=== PATIENT | female | born 1940 | race Caucasian/White ===

== ENCOUNTER 2016-06-20 12:44 | Outpatient (CLI) | payer MEDICARE ==
[2016-06-20 13:07] LABS: Bilirubin Negative (Negative); Blood, Urine Negative (Negative); Glucose, Urine (Dipstick) Negative (Negative); Ketone, Urine Negative (Negative); Nitrite Negative (Negative); Protein, Urine (Dipstick) Negative (Neg-Trace); Urobilinogen 0.2 mg/dL (0.2-1.0)
[2016-06-20 13:29] LABS: Bacteria/HPF 1+ HPF (None Seen); RBC/HPF 0-3 HPF (0-3); Squamous Epithelial 0-3 HPF (0-3); WBC/HPF 21-50 HPF (0-3)
== END 2016-06-20 12:45 | disposition home or self-care (01) ==
LOC: NAV LAB 12:44
PROVIDERS: ATTEND Family Medicine
DX: N39.0 Urinary tract infection, site not specified (principal)
CPT/HCPCS: 81003; 81015; 87086

== ENCOUNTER 2016-08-15 08:57 | Outpatient (CLI) | payer MEDICARE ==
[2016-08-15 12:25] LABS: #Eosinphils 0.1 thou/uL (0.0-0.7); #Lymphocytes 2.1 thou/uL (1.20-3.40); #Monocytes 0.5 thou/uL (0.11-0.59); #Neutrophils 5.8 thou/uL (1.40-6.50); %Basophils 0.5 % (0.0-1.0); %Lymphocytes 24.6 % (21.0-51.0); %Monocytes 6.2 % (0.0-10.0); %Neutrophils 67.7 % (42.0-75.0); Hemoglobin 12.9 g/dL (12.0-16.0); Mean Corpuscular HGB CONC 32.1 g/dL (32.0-36.0); Mean Corpuscular Hemoglobin 28.3 pg (27.0-31.0); Mean Corpuscular Volume 88.3 fl (81.0-99.0); Mean Platelet Volume 8.6 fL (7.4-10.4); Platelet Count 202 thou/uL (130-400); Red Blood Cell (RBC) Count 4.57 mill/uL (4.20-5.40); White Blood Cell (WBC) Count 8.6 thou/uL (4.8-10.8)
[2016-08-15 12:47] LABS: ALT (SGPT) 12 U/L (0-55); AST (SGOT) 16 U/L (5-34); Albumin 4.2 g/dL (3.4-4.8); Alkaline Phosphatase 43 U/L (40-150); Anion Gap 16 mmol/L (10-20); BUN (Urea Nitrogen) 19 mg/dL (9.8-20.1); Bilirubin, Direct 0.2 mg/dL (0.1-0.3); Bilirubin, Total 0.3 mg/dL (0.2-1.2); Calc. Creatinine Clearance 0 mL/min (70-130); Calcium 9.6 mg/dL (7.8-10.44); Carbon Dioxide 24 mmol/L (23-31); Chloride 105 mmol/L (98-107); Cholesterol 172 mg/dL (< 200 Desired); Estimated GFR-MDRD 69; Glucose 107 mg/dL (83-110); HDL Cholesterol 57 mg/dL (>60 Neg Risk); LDL Cholesterol, Calculated 91 mg/dL; Potassium 4.3 mmol/L (3.5-5.1); Protein, Total 7.1 g/dL (5.8-8.1); Sodium 141 mmol/L (136-145); Triglycerides 120 mg/dL (Less than 150)
== END 2016-08-15 08:58 | disposition home or self-care (01) ==
LOC: NAVSJIPCSP 08:57
PROVIDERS: ATTEND Family Medicine
DX: E78.00 Pure hypercholesterolemia, unspecified (principal); E11.9 Type 2 diabetes mellitus without complications; I10 Essential (primary) hypertension
CPT/HCPCS: 36415; 80048; 80061; 80076; 83036; 84443; 85025

== ENCOUNTER 2016-08-17 14:06 | Outpatient (CLI) | payer MEDICARE ==
[2016-08-17 21:16] LABS: Bilirubin Negative (Negative); Blood, Urine Negative (Negative); Clarity Clear (Clear); Glucose, Urine (Dipstick) Negative (Negative); Leukocyte Small (Negative); Nitrite Negative (Negative); Protein, Urine (Dipstick) Negative (Neg-Trace); Urobilinogen 0.2 mg/dL (0.2-1.0)
[2016-08-17 21:58] LABS: Bacteria/HPF 1+ HPF (None Seen); Renal Epithelial 0-3 HPF (0-3); WBC/HPF 0-3 HPF (0-3)
== END 2016-08-17 14:07 | disposition home or self-care (01) ==
LOC: NAV LAB 14:06
PROVIDERS: ATTEND Nurse Practitioner Family
DX: R39.9 Unspecified symptoms and signs involving the genitourinary system (principal)
CPT/HCPCS: 81001; 87086

== ENCOUNTER 2016-12-22 09:27 | Outpatient (CLI) | payer MEDICARE ==
[2016-12-22 12:04] LABS: #Basophils 0.1 thou/uL (0.0-0.2); #Eosinphils 0.1 thou/uL (0.0-0.7); #Lymphocytes 1.8 thou/uL (1.20-3.40); #Monocytes 0.6 thou/uL (0.11-0.59); #Neutrophils 5.2 thou/uL (1.40-6.50); %Basophils 0.8 % (0.0-1.0); %Eosinophils 0.9 % (0.0-10.0); %Lymphocytes 23.6 % (21.0-51.0); %Monocytes 7.3 % (0.0-10.0); %Neutrophils 67.4 % (42.0-75.0); Hemoglobin 12.7 g/dL (12.0-16.0); Mean Corpuscular HGB CONC 31.5 g/dL (32.0-36.0); Mean Corpuscular Volume 88.9 fl (81.0-99.0); Mean Platelet Volume 8.7 fL (7.4-10.4); Platelet Count 190 thou/uL (130-400); RBC Distribution Width 13.8 % (11.5-14.5); Red Blood Cell (RBC) Count 4.54 mill/uL (4.20-5.40); White Blood Cell (WBC) Count 7.7 thou/uL (4.8-10.8)
[2016-12-22 12:19] LABS: ALT (SGPT) 11 U/L (8-55); AST (SGOT) 16 U/L (5-34); Alkaline Phosphatase 44 U/L (40-150); Anion Gap 17 mmol/L (10-20); BUN (Urea Nitrogen) 22 mg/dL (9.8-20.1); Bilirubin, Direct 0.2 mg/dL (0.1-0.3); Bilirubin, Total 0.3 mg/dL (0.2-1.2); Calc. Creatinine Clearance 0 mL/min (70-130); Calcium 9.4 mg/dL (7.8-10.44); Carbon Dioxide 23 mmol/L (23-31); Cardiac Risk 2.7 (Less than 4.5); Chloride 104 mmol/L (98-107); Cholesterol 147 mg/dl (< 200 Desired); Estimated GFR-MDRD 66; Glucose 106 mg/dL (83-110); HDL Cholesterol 55 mg/dL (>60 Neg Risk); LDL Cholesterol, Calculated 70 mg/dL; Potassium 4.4 mmol/L (3.5-5.1); Protein, Total 6.7 g/dL (6.0-8.3); Sodium 140 mmol/L (136-145); Triglycerides 109 mg/dL (Less than 150)
[2016-12-22 12:25] LABS: Bilirubin Negative (Negative); Blood, Urine Trace (Negative); Clarity Clear (Clear); Glucose, Urine (Dipstick) Negative (Negative); Leukocyte Negative (Negative); Nitrite Negative (Negative); Protein, Urine (Dipstick) Negative (Neg-Trace); Specific Gravity, Urine 1.015 (1.005-1.030); Urobilinogen 0.2 mg/dL (0.2-1.0); pH, Urine 5.5 (5.0-9.0)
[2016-12-22 12:42] LABS: Hemoglobin A1c 6.3 % (4.0-6.0)
[2016-12-22 12:43] LABS: Bacteria/HPF Rare-Few HPF (None Seen); RBC/HPF 0-3 HPF (0-3); WBC/HPF 0-3 HPF (0-3)
== END 2016-12-22 09:28 | disposition home or self-care (01) ==
LOC: NAVSJIPCSP 09:27
PROVIDERS: ATTEND Family Medicine
DX: E11.9 Type 2 diabetes mellitus without complications (principal); E78.5 Hyperlipidemia, unspecified; I10 Essential (primary) hypertension; R30.0 Dysuria; Z79.899 Other long term (current) drug therapy
CPT/HCPCS: 36415; 80048; 80061; 80076; 81003; 81015; 83036; 84443; 85025

== ENCOUNTER 2018-01-10 12:22 | Outpatient (CLI) | payer MEDICARE ==
[2018-01-10 13:05] LABS: Bilirubin Negative (Negative); Blood, Urine Trace (Negative); Clarity Clear (Clear); Glucose, Urine (Dipstick) Negative (Negative); Leukocyte Large (Negative); Nitrite Negative (Negative); Protein, Urine (Dipstick) Negative (Neg-Trace); Urobilinogen 0.2 mg/dL (0.2-1.0); pH, Urine 6.5 (5.0-9.0)
[2018-01-10 13:20] LABS: Bacteria/HPF Rare-Few HPF (None Seen); RBC/HPF 0-3 HPF (0-3); Squamous Epithelial 0-3 HPF (0-3)
== END 2018-01-10 12:23 | disposition home or self-care (01) ==
LOC: NAV LABSP 12:22
PROVIDERS: ATTEND Family Medicine
DX: N39.0 Urinary tract infection, site not specified (principal)
CPT/HCPCS: 81003; 81015; 87077; 87086; 87186

== ENCOUNTER 2020-12-01 12:35 | Inpatient (IN) | payer MEDICARE ==
[2020-12-01] MEDS: metFORMIN 500 MG TAB PO SCH (17:11)
[2020-12-01] MEDS: HYDROcodone/Acetaminophen 5/325 mg Tablet PO PRN (17:11)
[2020-12-01] MEDS: Calcium Carbonate 600 MG + Vit D TAB PO SCH (17:11)
[2020-12-01] MEDS: Atorvastatin Calcium 20 MG TAB PO SCH (20:35)
[2020-12-01] MEDS: Senokot S 8.6-50 MG TAB PO SCH (20:35)
[2020-12-01] MEDS ORDERED: Artificial Tear Sol 15 ML BOT EA EYE PRN (20:40)
[2020-12-01] MEDS ORDERED: Dextrose 50% Abboject 50 ML SYRINGE SLOW IVP PRN (20:40)
[2020-12-01] MEDS ORDERED: cloNIDine 0.1 MG TAB PO PRN (20:40)
[2020-12-01] MEDS ORDERED: Sodium Chloride 0.65% Nasal 44 ML BOT EA NARE PRN (20:40)
[2020-12-01] MEDS ORDERED: Cepastat Lozenges 1 LOZ PO PRN (20:40)
[2020-12-01] MEDS ORDERED: Benzonatate 100 MG CAP PO PRN (20:40)
[2020-12-01] MEDS ORDERED: Calcium Carbonate 500 MG ChewTAB PO PRN (20:40)
[2020-12-01] MEDS ORDERED: Loperamide HCl 2 MG CAP PO PRN ×2 (20:40)
[2020-12-01] MEDS ORDERED: Loratadine 10 MG TAB PO PRN (20:40)
[2020-12-01] MEDS: Famotidine 20 MG TAB PO SCH (21:38)
[2020-12-02 04:08] LABS: SARS-CoV-2 NAA Rapid Test Not Detected (NotDetected)
[2020-12-02] MEDS: Levothyroxine Sodium 25 MCG TAB PO SCH (05:20)
[2020-12-02 06:51] LABS: #Basophils 0.1 thou/uL (0.0-0.2); #Eosinphils 0.1 thou/uL (0.0-0.7); #Lymphocytes 1.5 thou/uL (1.20-3.40); #Monocytes 0.7 thou/uL (0.11-0.59); #Neutrophils 7.2 thou/uL (1.40-6.50); %Eosinophils 1.5 % (0.0-10.0); %Lymphocytes 15.9 % (21.0-51.0); %Monocytes 6.9 % (0.0-10.0); %Neutrophils 74.7 % (42.0-75.0); Mean Corpuscular HGB CONC 31.4 g/dL (32.0-36.0); Mean Corpuscular Hemoglobin 28.1 pg (27.0-31.0); Mean Corpuscular Volume 89.7 fL (78.0-98.0); Mean Platelet Volume 5.9 fL (7.4-10.4); Platelet Count 345 thou/uL (130-400); RBC Distribution Width 15.2 % (11.5-14.5); Red Blood Cell (RBC) Count 3.18 mill/uL (4.20-5.40); White Blood Cell (WBC) Count 9.6 thou/uL (4.8-10.8)
[2020-12-02 07:08] LABS: ALT (SGPT) 21 U/L (8-55); AST (SGOT) 24 U/L (5-34); Albumin 3.1 g/dL (3.4-4.8); Alkaline Phosphatase 73 U/L (40-110); Anion Gap 13 mmol/L (10-20); BUN (Urea Nitrogen) 29 mg/dL (9.8-20.1); Bilirubin, Total 0.6 mg/dL (0.2-1.2); Calc. Creatinine Clearance 66 mL/min (70-130); Calcium 9.3 mg/dL (7.8-10.44); Carbon Dioxide 26 mmol/L (23-31); Chloride 102 mmol/L (98-107); Globulin 3.1 g/dL (2.4-3.5); Glucose 152 mg/dL (83-110); Potassium 4.7 mmol/L (3.5-5.1); Protein, Total 6.2 g/dL (5.8-8.1); Sodium 136 mmol/L (136-145)
[2020-12-02] MEDS: Calcium Carbonate 600 MG + Vit D TAB PO SCH ×2 (08:40→16:58)
[2020-12-02] MEDS: Enoxaparin Sodium 40 MG/0.4 ML SYRINGE SC SCH (08:41)
[2020-12-02] MEDS: Aspirin Chewable 81 MG TAB PO SCH (08:41)
[2020-12-02] MEDS: metFORMIN 500 MG TAB PO SCH ×2 (08:41→16:58)
[2020-12-02] MEDS: Ferrous Sulfate 325 MG TAB PO SCH (08:41)
[2020-12-02] MEDS: Famotidine 20 MG TAB PO SCH ×2 (08:42→20:31)
[2020-12-02] MEDS: Lisinopril 20 MG TAB PO SCH (08:42)
[2020-12-02] MEDS: NIFEdipine XL 30 MG TAB PO SCH (08:44)
[2020-12-02] MEDS: Pioglitazone HCl 15 MG TAB PO SCH (08:45)
[2020-12-02] MEDS: HYDROcodone/Acetaminophen 5/325 mg Tablet PO PRN ×2 (08:46→17:00)
[2020-12-02] MEDS: Senokot S 8.6-50 MG TAB PO SCH ×2 (08:46→20:31)
[2020-12-02] MEDS: Polyethylene Glycol 3350 17 GM Packet PO SCH (08:46)
[2020-12-02] MEDS: HumaLOG 300 UNITS/3 ML VIAL SC PRN (12:26)
[2020-12-02] MEDS: Atorvastatin Calcium 20 MG TAB PO SCH (20:31)
[2020-12-03] MEDS: Levothyroxine Sodium 25 MCG TAB PO SCH (05:16)
[2020-12-03] MEDS: Enoxaparin Sodium 40 MG/0.4 ML SYRINGE SC SCH (08:43)
[2020-12-03] MEDS: Polyethylene Glycol 3350 17 GM Packet PO SCH (08:43)
[2020-12-03] MEDS: Ferrous Sulfate 325 MG TAB PO SCH (08:44)
[2020-12-03] MEDS: NIFEdipine XL 30 MG TAB PO SCH (08:44)
[2020-12-03] MEDS: Famotidine 20 MG TAB PO SCH ×2 (08:46→21:17)
[2020-12-03] MEDS: Pioglitazone HCl 15 MG TAB PO SCH (08:47)
[2020-12-03] MEDS: Lisinopril 20 MG TAB PO SCH (08:47)
[2020-12-03] MEDS: Aspirin Chewable 81 MG TAB PO SCH (08:48)
[2020-12-03] MEDS: metFORMIN 500 MG TAB PO SCH ×2 (08:48→16:41)
[2020-12-03] MEDS: Senokot S 8.6-50 MG TAB PO SCH ×2 (08:49→21:17)
[2020-12-03] MEDS: HYDROcodone/Acetaminophen 5/325 mg Tablet PO PRN ×2 (08:55→16:55)
[2020-12-03] MEDS: Calcium Carbonate 600 MG + Vit D TAB PO SCH ×2 (08:56→16:42)
[2020-12-03] MEDS ORDERED: Bisacodyl 10 MG SUPP PR PRN (16:23)
[2020-12-03] MEDS: Ondansetron ODT 4 MG TAB PO PRN (20:30)
[2020-12-03] MEDS: Atorvastatin Calcium 20 MG TAB PO SCH (21:17)
[2020-12-04] MEDS: Levothyroxine Sodium 25 MCG TAB PO SCH (05:53)
[2020-12-04 06:35] LABS: #Basophils 0.1 thou/uL (0.0-0.2); #Eosinphils 0.1 thou/uL (0.0-0.7); #Lymphocytes 1.3 thou/uL (1.20-3.40); #Monocytes 0.8 thou/uL (0.11-0.59); #Neutrophils 7.5 thou/uL (1.40-6.50); %Basophils 0.6 % (0.0-1.0); %Eosinophils 1.2 % (0.0-10.0); %Lymphocytes 13.3 % (21.0-51.0); %Monocytes 8.2 % (0.0-10.0); %Neutrophils 76.8 % (42.0-75.0); Mean Corpuscular HGB CONC 31.6 g/dL (32.0-36.0); Mean Corpuscular Hemoglobin 28.3 pg (27.0-31.0); Mean Corpuscular Volume 89.6 fL (78.0-98.0); Mean Platelet Volume 5.7 fL (7.4-10.4); Platelet Count 407 thou/uL (130-400); RBC Distribution Width 15.5 % (11.5-14.5); Red Blood Cell (RBC) Count 3.17 mill/uL (4.20-5.40); White Blood Cell (WBC) Count 9.7 thou/uL (4.8-10.8)
[2020-12-04 06:48] LABS: Anion Gap 12 mmol/L (10-20); BUN (Urea Nitrogen) 34 mg/dL (9.8-20.1); Calc. Creatinine Clearance 53 mL/min (70-130); Carbon Dioxide 25 mmol/L (23-31); Chloride 103 mmol/L (98-107); Glucose 128 mg/dL (83-110); Potassium 4.6 mmol/L (3.5-5.1); Sodium 135 mmol/L (136-145)
[2020-12-04] MEDS: HYDROcodone/Acetaminophen 5/325 mg Tablet PO PRN ×2 (08:11→14:10)
[2020-12-04] MEDS: metFORMIN 500 MG TAB PO SCH ×2 (08:11→17:30)
[2020-12-04] MEDS: Ferrous Sulfate 325 MG TAB PO SCH (08:11)
[2020-12-04] MEDS: Polyethylene Glycol 3350 17 GM Packet PO SCH (08:13)
[2020-12-04] MEDS: Pioglitazone HCl 15 MG TAB PO SCH (08:13)
[2020-12-04] MEDS: Lisinopril 20 MG TAB PO SCH (08:13)
[2020-12-04] MEDS: NIFEdipine XL 30 MG TAB PO SCH (08:14)
[2020-12-04] MEDS: Calcium Carbonate 600 MG + Vit D TAB PO SCH ×2 (08:15→17:30)
[2020-12-04] MEDS: Aspirin Chewable 81 MG TAB PO SCH (08:15)
[2020-12-04] MEDS: Senokot S 8.6-50 MG TAB PO SCH ×2 (08:15→20:44)
[2020-12-04] MEDS: Enoxaparin Sodium 40 MG/0.4 ML SYRINGE SC SCH (08:15)
[2020-12-04] MEDS: Famotidine 20 MG TAB PO SCH ×2 (08:16→20:44)
[2020-12-04] MEDS: HumaLOG 300 UNITS/3 ML VIAL SC PRN (12:15)
[2020-12-04] MEDS: Ondansetron ODT 4 MG TAB PO PRN (20:44)
[2020-12-04] MEDS: Atorvastatin Calcium 20 MG TAB PO SCH (20:44)
[2020-12-05] MEDS: Levothyroxine Sodium 25 MCG TAB PO SCH (05:24)
[2020-12-05] MEDS: Calcium Carbonate 600 MG + Vit D TAB PO SCH ×2 (09:25→15:57)
[2020-12-05] MEDS: Enoxaparin Sodium 40 MG/0.4 ML SYRINGE SC SCH (09:26)
[2020-12-05] MEDS: Aspirin Chewable 81 MG TAB PO SCH (09:26)
[2020-12-05] MEDS: Ferrous Sulfate 325 MG TAB PO SCH (09:26)
[2020-12-05] MEDS: metFORMIN 500 MG TAB PO SCH ×2 (09:26→15:57)
[2020-12-05] MEDS: Pioglitazone HCl 15 MG TAB PO SCH (09:27)
[2020-12-05] MEDS: Lisinopril 20 MG TAB PO SCH (09:27)
[2020-12-05] MEDS: Famotidine 20 MG TAB PO SCH ×2 (09:27→20:44)
[2020-12-05] MEDS: Polyethylene Glycol 3350 17 GM Packet PO SCH (09:27)
[2020-12-05] MEDS: Senokot S 8.6-50 MG TAB PO SCH ×2 (09:28→20:44)
[2020-12-05] MEDS: NIFEdipine XL 30 MG TAB PO SCH (09:28)
[2020-12-05] MEDS: HYDROcodone/Acetaminophen 5/325 mg Tablet PO PRN ×2 (09:30→15:57)
[2020-12-05] MEDS: Atorvastatin Calcium 20 MG TAB PO SCH (20:44)
[2020-12-06] MEDS: Levothyroxine Sodium 25 MCG TAB PO SCH (05:22)
[2020-12-06] MEDS: Calcium Carbonate 600 MG + Vit D TAB PO SCH ×2 (09:20→17:26)
[2020-12-06] MEDS: Polyethylene Glycol 3350 17 GM Packet PO SCH (09:21)
[2020-12-06] MEDS: metFORMIN 500 MG TAB PO SCH ×2 (09:21→17:26)
[2020-12-06] MEDS: Ferrous Sulfate 325 MG TAB PO SCH (09:21)
[2020-12-06] MEDS: Famotidine 20 MG TAB PO SCH ×2 (09:22→20:09)
[2020-12-06] MEDS: Lisinopril 20 MG TAB PO SCH (09:22)
[2020-12-06] MEDS: Enoxaparin Sodium 40 MG/0.4 ML SYRINGE SC SCH (09:22)
[2020-12-06] MEDS: Aspirin Chewable 81 MG TAB PO SCH (09:22)
[2020-12-06] MEDS: NIFEdipine XL 30 MG TAB PO SCH (09:23)
[2020-12-06] MEDS: Pioglitazone HCl 15 MG TAB PO SCH (09:23)
[2020-12-06] MEDS: Senokot S 8.6-50 MG TAB PO SCH ×2 (09:23→20:09)
[2020-12-06] MEDS: HYDROcodone/Acetaminophen 5/325 mg Tablet PO PRN ×2 (09:26→19:21)
[2020-12-06] MEDS: Atorvastatin Calcium 20 MG TAB PO SCH (20:09)
[2020-12-07] MEDS: Levothyroxine Sodium 25 MCG TAB PO SCH (06:18)
[2020-12-07] MEDS: Pioglitazone HCl 15 MG TAB PO SCH (08:50)
[2020-12-07] MEDS: metFORMIN 500 MG TAB PO SCH ×2 (08:50→16:42)
[2020-12-07] MEDS: Ferrous Sulfate 325 MG TAB PO SCH (08:50)
[2020-12-07] MEDS: Senokot S 8.6-50 MG TAB PO SCH ×2 (08:51→20:17)
[2020-12-07] MEDS: Famotidine 20 MG TAB PO SCH ×2 (08:51→20:17)
[2020-12-07] MEDS: Calcium Carbonate 600 MG + Vit D TAB PO SCH ×2 (08:51→16:42)
[2020-12-07] MEDS: Enoxaparin Sodium 40 MG/0.4 ML SYRINGE SC SCH (08:51)
[2020-12-07] MEDS: Aspirin Chewable 81 MG TAB PO SCH (08:51)
[2020-12-07] MEDS: NIFEdipine XL 30 MG TAB PO SCH (08:51)
[2020-12-07] MEDS: Lisinopril 20 MG TAB PO SCH (08:51)
[2020-12-07] MEDS: Polyethylene Glycol 3350 17 GM Packet PO SCH (08:52)
[2020-12-07] MEDS: HYDROcodone/Acetaminophen 5/325 mg Tablet PO PRN (08:57)
[2020-12-07] MEDS: Atorvastatin Calcium 20 MG TAB PO SCH (20:17)
[2020-12-08] MEDS: HYDROcodone/Acetaminophen 5/325 mg Tablet PO PRN ×3 (00:38→17:09)
[2020-12-08] MEDS: Levothyroxine Sodium 25 MCG TAB PO SCH (06:09)
[2020-12-08] MEDS: Senokot S 8.6-50 MG TAB PO SCH ×2 (08:54→21:02)
[2020-12-08] MEDS: metFORMIN 500 MG TAB PO SCH ×2 (08:55→17:08)
[2020-12-08] MEDS: Famotidine 20 MG TAB PO SCH ×2 (08:55→21:02)
[2020-12-08] MEDS: Aspirin Chewable 81 MG TAB PO SCH (08:55)
[2020-12-08] MEDS: NIFEdipine XL 30 MG TAB PO SCH (08:55)
[2020-12-08] MEDS: Polyethylene Glycol 3350 17 GM Packet PO SCH (08:55)
[2020-12-08] MEDS: Pioglitazone HCl 15 MG TAB PO SCH (08:55)
[2020-12-08] MEDS: Calcium Carbonate 600 MG + Vit D TAB PO SCH ×2 (08:55→17:08)
[2020-12-08] MEDS: Enoxaparin Sodium 40 MG/0.4 ML SYRINGE SC SCH (08:55)
[2020-12-08] MEDS: Lisinopril 20 MG TAB PO SCH (08:55)
[2020-12-08] MEDS: Ferrous Sulfate 325 MG TAB PO SCH (08:55)
[2020-12-08] MEDS: Atorvastatin Calcium 20 MG TAB PO SCH (21:02)
[2020-12-08 21:16] LABS: SARS-CoV-2 PCR by NAA Not Detected (NotDetected)
[2020-12-09] MEDS: Levothyroxine Sodium 25 MCG TAB PO SCH (06:14)
[2020-12-09] MEDS: Calcium Carbonate 600 MG + Vit D TAB PO SCH ×2 (08:26→17:11)
[2020-12-09] MEDS: Aspirin Chewable 81 MG TAB PO SCH (08:27)
[2020-12-09] MEDS: Famotidine 20 MG TAB PO SCH ×2 (08:27→21:43)
[2020-12-09] MEDS: Enoxaparin Sodium 40 MG/0.4 ML SYRINGE SC SCH (08:27)
[2020-12-09] MEDS: Ferrous Sulfate 325 MG TAB PO SCH (08:27)
[2020-12-09] MEDS: metFORMIN 500 MG TAB PO SCH ×2 (08:27→17:11)
[2020-12-09] MEDS: Lisinopril 20 MG TAB PO SCH (08:28)
[2020-12-09] MEDS: NIFEdipine XL 30 MG TAB PO SCH (08:30)
[2020-12-09] MEDS: Polyethylene Glycol 3350 17 GM Packet PO SCH (08:31)
[2020-12-09] MEDS: Senokot S 8.6-50 MG TAB PO SCH ×2 (08:31→21:42)
[2020-12-09] MEDS: Pioglitazone HCl 15 MG TAB PO SCH (08:31)
[2020-12-09] MEDS: HYDROcodone/Acetaminophen 5/325 mg Tablet PO PRN ×3 (08:32→21:43)
[2020-12-09] MEDS: Ondansetron ODT 4 MG TAB SL PRN (20:32)
[2020-12-09] MEDS: Atorvastatin Calcium 20 MG TAB PO SCH (21:42)
[2020-12-10] MEDS: Levothyroxine Sodium 25 MCG TAB PO SCH (05:56)
[2020-12-10] MEDS: Ferrous Sulfate 325 MG TAB PO SCH (08:04)
[2020-12-10] MEDS: Calcium Carbonate 600 MG + Vit D TAB PO SCH ×2 (08:04→16:20)
[2020-12-10] MEDS: Aspirin Chewable 81 MG TAB PO SCH (08:05)
[2020-12-10] MEDS: metFORMIN 500 MG TAB PO SCH ×2 (08:05→16:20)
[2020-12-10] MEDS: Enoxaparin Sodium 40 MG/0.4 ML SYRINGE SC SCH (08:06)
[2020-12-10] MEDS: Famotidine 20 MG TAB PO SCH ×2 (08:07→20:06)
[2020-12-10] MEDS: NIFEdipine XL 30 MG TAB PO SCH (08:07)
[2020-12-10] MEDS: Lisinopril 20 MG TAB PO SCH (08:07)
[2020-12-10] MEDS: Polyethylene Glycol 3350 17 GM Packet PO SCH (08:08)
[2020-12-10] MEDS: Pioglitazone HCl 15 MG TAB PO SCH (08:08)
[2020-12-10] MEDS: HYDROcodone/Acetaminophen 5/325 mg Tablet PO PRN ×2 (08:08→14:50)
[2020-12-10] MEDS: Senokot S 8.6-50 MG TAB PO SCH ×2 (08:08→20:06)
[2020-12-10] MEDS: Atorvastatin Calcium 20 MG TAB PO SCH (20:06)
[2020-12-11] MEDS: Levothyroxine Sodium 25 MCG TAB PO SCH (05:39)
[2020-12-11] MEDS: HYDROcodone/Acetaminophen 5/325 mg Tablet PO PRN ×2 (08:36→18:01)
[2020-12-11] MEDS: Enoxaparin Sodium 40 MG/0.4 ML SYRINGE SC SCH (08:38)
[2020-12-11] MEDS: Senokot S 8.6-50 MG TAB PO SCH ×2 (08:39→20:58)
[2020-12-11] MEDS: Pioglitazone HCl 15 MG TAB PO SCH (08:39)
[2020-12-11] MEDS: NIFEdipine XL 30 MG TAB PO SCH (08:40)
[2020-12-11] MEDS: Lisinopril 20 MG TAB PO SCH (08:40)
[2020-12-11] MEDS: Aspirin Chewable 81 MG TAB PO SCH (08:40)
[2020-12-11] MEDS: Ferrous Sulfate 325 MG TAB PO SCH (08:41)
[2020-12-11] MEDS: Famotidine 20 MG TAB PO SCH ×2 (08:41→20:57)
[2020-12-11] MEDS: metFORMIN 500 MG TAB PO SCH ×2 (08:41→17:58)
[2020-12-11] MEDS: Calcium Carbonate 600 MG + Vit D TAB PO SCH ×2 (08:50→17:58)
[2020-12-11] MEDS: Polyethylene Glycol 3350 17 GM Packet PO SCH (08:51)
[2020-12-11] MEDS: Atorvastatin Calcium 20 MG TAB PO SCH (20:58)
[2020-12-12] MEDS: Levothyroxine Sodium 25 MCG TAB PO SCH (05:51)
[2020-12-12] MEDS: HYDROcodone/Acetaminophen 5/325 mg Tablet PO PRN ×2 (08:49→21:58)
[2020-12-12] MEDS: Famotidine 20 MG TAB PO SCH ×2 (08:51→20:15)
[2020-12-12] MEDS: Calcium Carbonate 600 MG + Vit D TAB PO SCH ×2 (08:51→17:31)
[2020-12-12] MEDS: Ferrous Sulfate 325 MG TAB PO SCH (08:51)
[2020-12-12] MEDS: NIFEdipine XL 30 MG TAB PO SCH (08:52)
[2020-12-12] MEDS: Senokot S 8.6-50 MG TAB PO SCH ×2 (08:52→20:15)
[2020-12-12] MEDS: metFORMIN 500 MG TAB PO SCH ×2 (08:52→17:32)
[2020-12-12] MEDS: Lisinopril 20 MG TAB PO SCH (08:53)
[2020-12-12] MEDS: Aspirin Chewable 81 MG TAB PO SCH (08:53)
[2020-12-12] MEDS: Polyethylene Glycol 3350 17 GM Packet PO SCH (08:54)
[2020-12-12] MEDS: Enoxaparin Sodium 40 MG/0.4 ML SYRINGE SC SCH (08:59)
[2020-12-12] MEDS: Pioglitazone HCl 15 MG TAB PO SCH (08:59)
[2020-12-12] MEDS: Eucerin (Mineral Oil/Petrolatum,White) 30 gm Jar TOP PRN (09:01)
[2020-12-12] MEDS: Ondansetron ODT 4 MG TAB SL PRN (13:20)
[2020-12-12] MEDS: Atorvastatin Calcium 20 MG TAB PO SCH (20:15)
[2020-12-13] MEDS: Levothyroxine Sodium 25 MCG TAB PO SCH (05:50)
[2020-12-13] MEDS: HYDROcodone/Acetaminophen 5/325 mg Tablet PO PRN ×3 (08:27→20:25)
[2020-12-13] MEDS: Ferrous Sulfate 325 MG TAB PO SCH (08:30)
[2020-12-13] MEDS: Famotidine 20 MG TAB PO SCH ×2 (08:30→20:26)
[2020-12-13] MEDS: Enoxaparin Sodium 40 MG/0.4 ML SYRINGE SC SCH (08:30)
[2020-12-13] MEDS: NIFEdipine XL 30 MG TAB PO SCH (08:31)
[2020-12-13] MEDS: metFORMIN 500 MG TAB PO SCH ×2 (08:31→17:35)
[2020-12-13] MEDS: Pioglitazone HCl 15 MG TAB PO SCH (08:31)
[2020-12-13] MEDS: Aspirin Chewable 81 MG TAB PO SCH (08:32)
[2020-12-13] MEDS: Calcium Carbonate 600 MG + Vit D TAB PO SCH ×2 (08:32→17:35)
[2020-12-13] MEDS: Lisinopril 20 MG TAB PO SCH (08:32)
[2020-12-13] MEDS: Eucerin (Mineral Oil/Petrolatum,White) 30 gm Jar TOP PRN (08:33)
[2020-12-13] MEDS: Senokot S 8.6-50 MG TAB PO SCH ×2 (08:34→20:26)
[2020-12-13] MEDS: Polyethylene Glycol 3350 17 GM Packet PO SCH (08:35)
[2020-12-13] MEDS: Ondansetron ODT 4 MG TAB SL PRN (14:10)
[2020-12-13] MEDS: Atorvastatin Calcium 20 MG TAB PO SCH (20:26)
[2020-12-14] MEDS: Levothyroxine Sodium 25 MCG TAB PO SCH (05:30)
[2020-12-14] MEDS: Calcium Carbonate 600 MG + Vit D TAB PO SCH ×2 (08:12→17:04)
[2020-12-14] MEDS: Enoxaparin Sodium 40 MG/0.4 ML SYRINGE SC SCH (08:13)
[2020-12-14] MEDS: metFORMIN 500 MG TAB PO SCH ×2 (08:13→17:04)
[2020-12-14] MEDS: Ferrous Sulfate 325 MG TAB PO SCH (08:13)
[2020-12-14] MEDS: Famotidine 20 MG TAB PO SCH ×2 (08:13→20:23)
[2020-12-14] MEDS: Aspirin Chewable 81 MG TAB PO SCH (08:13)
[2020-12-14] MEDS: NIFEdipine XL 30 MG TAB PO SCH (08:14)
[2020-12-14] MEDS: Lisinopril 20 MG TAB PO SCH (08:14)
[2020-12-14] MEDS: Polyethylene Glycol 3350 17 GM Packet PO SCH (08:15)
[2020-12-14] MEDS: HYDROcodone/Acetaminophen 5/325 mg Tablet PO PRN ×2 (08:15→20:22)
[2020-12-14] MEDS: Pioglitazone HCl 15 MG TAB PO SCH (08:15)
[2020-12-14] MEDS: Senokot S 8.6-50 MG TAB PO SCH ×2 (08:15→20:23)
[2020-12-14] MEDS: Ondansetron ODT 4 MG TAB SL PRN ×2 (08:21→15:41)
[2020-12-14] MEDS: Atorvastatin Calcium 20 MG TAB PO SCH (20:23)
[2020-12-15] MEDS: Levothyroxine Sodium 25 MCG TAB PO SCH (05:49)
[2020-12-15] MEDS: Calcium Carbonate 600 MG + Vit D TAB PO SCH ×2 (08:14→16:28)
[2020-12-15] MEDS: Ferrous Sulfate 325 MG TAB PO SCH (08:14)
[2020-12-15] MEDS: Aspirin Chewable 81 MG TAB PO SCH (08:14)
[2020-12-15] MEDS: metFORMIN 500 MG TAB PO SCH ×2 (08:14→16:28)
[2020-12-15] MEDS: Enoxaparin Sodium 40 MG/0.4 ML SYRINGE SC SCH (08:14)
[2020-12-15] MEDS: Lisinopril 20 MG TAB PO SCH (08:15)
[2020-12-15] MEDS: Famotidine 20 MG TAB PO SCH ×2 (08:15→20:32)
[2020-12-15] MEDS: NIFEdipine XL 30 MG TAB PO SCH (08:16)
[2020-12-15] MEDS: Senokot S 8.6-50 MG TAB PO SCH ×2 (08:17→20:32)
[2020-12-15] MEDS: Polyethylene Glycol 3350 17 GM Packet PO SCH (08:17)
[2020-12-15] MEDS: HYDROcodone/Acetaminophen 5/325 mg Tablet PO PRN ×2 (08:17→16:28)
[2020-12-15] MEDS: Pioglitazone HCl 15 MG TAB PO SCH (08:17)
[2020-12-15] MEDS: Atorvastatin Calcium 20 MG TAB PO SCH (20:32)
[2020-12-15 21:50] LABS: SARS-CoV-2 PCR by NAA Not Detected (NotDetected)
[2020-12-16] MEDS: HYDROcodone/Acetaminophen 5/325 mg Tablet PO PRN ×3 (03:28→18:46)
[2020-12-16] MEDS: Levothyroxine Sodium 25 MCG TAB PO SCH (06:23)
[2020-12-16] MEDS: Polyethylene Glycol 3350 17 GM Packet PO SCH (08:09)
[2020-12-16] MEDS: Enoxaparin Sodium 40 MG/0.4 ML SYRINGE SC SCH (08:09)
[2020-12-16] MEDS: Lisinopril 20 MG TAB PO SCH (08:09)
[2020-12-16] MEDS: Aspirin Chewable 81 MG TAB PO SCH (08:10)
[2020-12-16] MEDS: Famotidine 20 MG TAB PO SCH ×2 (08:10→20:12)
[2020-12-16] MEDS: Senokot S 8.6-50 MG TAB PO SCH ×2 (08:10→20:12)
[2020-12-16] MEDS: Calcium Carbonate 600 MG + Vit D TAB PO SCH ×2 (08:10→17:27)
[2020-12-16] MEDS: NIFEdipine XL 30 MG TAB PO SCH (08:10)
[2020-12-16] MEDS: Pioglitazone HCl 15 MG TAB PO SCH (08:11)
[2020-12-16] MEDS: metFORMIN 500 MG TAB PO SCH ×2 (08:11→17:27)
[2020-12-16] MEDS: Ferrous Sulfate 325 MG TAB PO SCH (08:11)
[2020-12-16] MEDS: Ondansetron ODT 4 MG TAB SL PRN (08:48)
[2020-12-16] MEDS: Atorvastatin Calcium 20 MG TAB PO SCH (20:12)
[2020-12-17] MEDS: Levothyroxine Sodium 25 MCG TAB PO SCH (05:33)
[2020-12-17] MEDS: HYDROcodone/Acetaminophen 5/325 mg Tablet PO PRN ×2 (07:41→14:00)
[2020-12-17] MEDS: Enoxaparin Sodium 40 MG/0.4 ML SYRINGE SC SCH (07:42)
[2020-12-17] MEDS: Polyethylene Glycol 3350 17 GM Packet PO SCH (07:43)
[2020-12-17] MEDS: Calcium Carbonate 600 MG + Vit D TAB PO SCH ×2 (07:44→17:35)
[2020-12-17] MEDS: NIFEdipine XL 30 MG TAB PO SCH (07:44)
[2020-12-17] MEDS: Famotidine 20 MG TAB PO SCH ×2 (07:44→20:37)
[2020-12-17] MEDS: Pioglitazone HCl 15 MG TAB PO SCH (07:44)
[2020-12-17] MEDS: Aspirin Chewable 81 MG TAB PO SCH (07:45)
[2020-12-17] MEDS: Senokot S 8.6-50 MG TAB PO SCH ×2 (07:45→20:37)
[2020-12-17] MEDS: Ferrous Sulfate 325 MG TAB PO SCH (07:45)
[2020-12-17] MEDS: Lisinopril 20 MG TAB PO SCH (07:45)
[2020-12-17] MEDS: metFORMIN 500 MG TAB PO SCH ×2 (09:35→17:35)
[2020-12-17] MEDS: Atorvastatin Calcium 20 MG TAB PO SCH (20:37)
[2020-12-18 05:11] LABS: Bilirubin Negative (Negative); Blood, Urine Negative (Negative); Clarity Clear (Clear); Glucose, Urine (Dipstick) Negative (Negative); Ketone, Urine Negative (Negative); Leukocyte Negative (Negative); Nitrite Positive (Negative); Protein, Urine (Dipstick) Negative (Neg-Trace); Specific Gravity, Urine 1.015 (1.005-1.030); Urobilinogen 0.2 mg/dL (Less than 2)
[2020-12-18] MEDS: Levothyroxine Sodium 25 MCG TAB PO SCH (05:16)
[2020-12-18 05:20] LABS: Bacteria/HPF 2+ HPF (None Seen); RBC/HPF None Seen HPF (0-3); WBC/HPF None Seen HPF (0-3)
[2020-12-18] MEDS: HYDROcodone/Acetaminophen 5/325 mg Tablet PO PRN ×3 (08:36→23:33)
[2020-12-18] MEDS: Calcium Carbonate 600 MG + Vit D TAB PO SCH ×2 (08:37→17:11)
[2020-12-18] MEDS: Polyethylene Glycol 3350 17 GM Packet PO SCH (08:37)
[2020-12-18] MEDS: Pioglitazone HCl 15 MG TAB PO SCH (08:37)
[2020-12-18] MEDS: Senokot S 8.6-50 MG TAB PO SCH ×2 (08:37→21:07)
[2020-12-18] MEDS: Enoxaparin Sodium 40 MG/0.4 ML SYRINGE SC SCH (08:37)
[2020-12-18] MEDS: NIFEdipine XL 30 MG TAB PO SCH (08:38)
[2020-12-18] MEDS: Aspirin Chewable 81 MG TAB PO SCH (08:38)
[2020-12-18] MEDS: Ferrous Sulfate 325 MG TAB PO SCH (08:39)
[2020-12-18] MEDS: Famotidine 20 MG TAB PO SCH ×2 (08:39→21:05)
[2020-12-18] MEDS: metFORMIN 500 MG TAB PO SCH ×2 (08:48→17:11)
[2020-12-18] MEDS: Lisinopril 20 MG TAB PO SCH (08:49)
[2020-12-18] MEDS ORDERED: Cipro 250 MG TAB PO SCH (13:00)
[2020-12-18] MEDS: Atorvastatin Calcium 20 MG TAB PO SCH (21:05)
[2020-12-18] MEDS: Cipro 250 MG TAB PO SCH (21:05)
[2020-12-19] MEDS: Cipro 250 MG TAB PO SCH ×2 (05:55→20:30)
[2020-12-19] MEDS: Levothyroxine Sodium 25 MCG TAB PO SCH (05:55)
[2020-12-19] MEDS: Calcium Carbonate 600 MG + Vit D TAB PO SCH ×2 (08:11→16:47)
[2020-12-19] MEDS: metFORMIN 500 MG TAB PO SCH ×2 (08:12→16:48)
[2020-12-19] MEDS: Enoxaparin Sodium 40 MG/0.4 ML SYRINGE SC SCH (08:12)
[2020-12-19] MEDS: Ferrous Sulfate 325 MG TAB PO SCH (08:12)
[2020-12-19] MEDS: Aspirin Chewable 81 MG TAB PO SCH (08:12)
[2020-12-19] MEDS: NIFEdipine XL 30 MG TAB PO SCH (08:13)
[2020-12-19] MEDS: Famotidine 20 MG TAB PO SCH ×2 (08:13→20:30)
[2020-12-19] MEDS: Lisinopril 20 MG TAB PO SCH (08:13)
[2020-12-19] MEDS: Pioglitazone HCl 15 MG TAB PO SCH (08:14)
[2020-12-19] MEDS: Polyethylene Glycol 3350 17 GM Packet PO SCH (08:14)
[2020-12-19] MEDS: Senokot S 8.6-50 MG TAB PO SCH ×2 (08:14→20:30)
[2020-12-19] MEDS: HYDROcodone/Acetaminophen 5/325 mg Tablet PO PRN ×2 (10:07→16:48)
[2020-12-19] MEDS: Atorvastatin Calcium 20 MG TAB PO SCH (20:30)
[2020-12-20] MEDS: HYDROcodone/Acetaminophen 5/325 mg Tablet PO PRN ×3 (01:49→16:07)
[2020-12-20] MEDS: Cipro 250 MG TAB PO SCH ×2 (06:06→20:36)
[2020-12-20] MEDS: Levothyroxine Sodium 25 MCG TAB PO SCH (06:06)
[2020-12-20] MEDS: Calcium Carbonate 600 MG + Vit D TAB PO SCH ×2 (08:17→16:07)
[2020-12-20] MEDS: Enoxaparin Sodium 40 MG/0.4 ML SYRINGE SC SCH (08:17)
[2020-12-20] MEDS: Aspirin Chewable 81 MG TAB PO SCH (08:17)
[2020-12-20] MEDS: metFORMIN 500 MG TAB PO SCH ×2 (08:17→16:07)
[2020-12-20] MEDS: Ferrous Sulfate 325 MG TAB PO SCH (08:17)
[2020-12-20] MEDS: Famotidine 20 MG TAB PO SCH ×2 (08:18→20:36)
[2020-12-20] MEDS: Lisinopril 20 MG TAB PO SCH (08:18)
[2020-12-20] MEDS: NIFEdipine XL 30 MG TAB PO SCH (08:21)
[2020-12-20] MEDS: Pioglitazone HCl 15 MG TAB PO SCH (08:23)
[2020-12-20] MEDS: Polyethylene Glycol 3350 17 GM Packet PO SCH (08:23)
[2020-12-20] MEDS: Senokot S 8.6-50 MG TAB PO SCH ×2 (08:23→20:35)
[2020-12-20] MEDS: Atorvastatin Calcium 20 MG TAB PO SCH (20:35)
[2020-12-21] MEDS: HYDROcodone/Acetaminophen 5/325 mg Tablet PO PRN ×4 (02:06→20:46)
[2020-12-21] MEDS: Cipro 250 MG TAB PO SCH ×2 (06:08→20:46)
[2020-12-21] MEDS: Levothyroxine Sodium 25 MCG TAB PO SCH (06:08)
[2020-12-21] MEDS: Ondansetron ODT 4 MG TAB SL PRN (08:26)
[2020-12-21] MEDS: Pioglitazone HCl 15 MG TAB PO SCH (09:08)
[2020-12-21] MEDS: metFORMIN 500 MG TAB PO SCH ×2 (09:08→17:18)
[2020-12-21] MEDS: Ferrous Sulfate 325 MG TAB PO SCH (09:08)
[2020-12-21] MEDS: Calcium Carbonate 600 MG + Vit D TAB PO SCH ×2 (09:08→17:18)
[2020-12-21] MEDS: Lisinopril 20 MG TAB PO SCH (09:09)
[2020-12-21] MEDS: Senokot S 8.6-50 MG TAB PO SCH ×2 (09:09→20:45)
[2020-12-21] MEDS: Famotidine 20 MG TAB PO SCH ×2 (09:09→20:45)
[2020-12-21] MEDS: Aspirin Chewable 81 MG TAB PO SCH (09:09)
[2020-12-21] MEDS: NIFEdipine XL 30 MG TAB PO SCH (09:10)
[2020-12-21] MEDS: Polyethylene Glycol 3350 17 GM Packet PO SCH (09:11)
[2020-12-21] MEDS: Enoxaparin Sodium 40 MG/0.4 ML SYRINGE SC SCH (09:11)
[2020-12-21] MEDS: Atorvastatin Calcium 20 MG TAB PO SCH (20:45)
[2020-12-22] MEDS: Cipro 250 MG TAB PO SCH (05:10)
[2020-12-22] MEDS: HYDROcodone/Acetaminophen 5/325 mg Tablet PO PRN ×3 (05:10→20:43)
[2020-12-22] MEDS: Levothyroxine Sodium 25 MCG TAB PO SCH (05:10)
[2020-12-22] MEDS: Enoxaparin Sodium 40 MG/0.4 ML SYRINGE SC SCH (09:01)
[2020-12-22] MEDS: Calcium Carbonate 600 MG + Vit D TAB PO SCH ×2 (09:02→16:54)
[2020-12-22] MEDS: Lisinopril 20 MG TAB PO SCH (09:02)
[2020-12-22] MEDS: NIFEdipine XL 30 MG TAB PO SCH (09:02)
[2020-12-22] MEDS: Senokot S 8.6-50 MG TAB PO SCH ×2 (09:02→20:43)
[2020-12-22] MEDS: Pioglitazone HCl 15 MG TAB PO SCH (09:03)
[2020-12-22] MEDS: Ferrous Sulfate 325 MG TAB PO SCH (09:03)
[2020-12-22] MEDS: Aspirin Chewable 81 MG TAB PO SCH (09:03)
[2020-12-22] MEDS: metFORMIN 500 MG TAB PO SCH ×2 (09:04→16:54)
[2020-12-22] MEDS: Polyethylene Glycol 3350 17 GM Packet PO SCH (09:04)
[2020-12-22] MEDS: Famotidine 20 MG TAB PO SCH ×2 (09:04→20:43)
[2020-12-22] MEDS: Ciprofloxacin 500 MG TAB PO SCH (20:43)
[2020-12-22] MEDS: Atorvastatin Calcium 20 MG TAB PO SCH (20:43)
[2020-12-23] MEDS: Levothyroxine Sodium 25 MCG TAB PO SCH (05:29)
[2020-12-23] MEDS: Ciprofloxacin 500 MG TAB PO SCH ×2 (05:30→21:21)
[2020-12-23] MEDS: HYDROcodone/Acetaminophen 5/325 mg Tablet PO PRN ×2 (07:39→16:05)
[2020-12-23] MEDS: Calcium Carbonate 600 MG + Vit D TAB PO SCH ×2 (09:05→16:05)
[2020-12-23] MEDS: Ferrous Sulfate 325 MG TAB PO SCH (09:05)
[2020-12-23] MEDS: Lisinopril 20 MG TAB PO SCH (09:05)
[2020-12-23] MEDS: Pioglitazone HCl 15 MG TAB PO SCH (09:05)
[2020-12-23] MEDS: Aspirin Chewable 81 MG TAB PO SCH (09:05)
[2020-12-23] MEDS: Senokot S 8.6-50 MG TAB PO SCH ×2 (09:05→21:21)
[2020-12-23] MEDS: metFORMIN 500 MG TAB PO SCH ×2 (09:06→16:05)
[2020-12-23] MEDS: Famotidine 20 MG TAB PO SCH ×2 (09:06→21:21)
[2020-12-23] MEDS: NIFEdipine XL 30 MG TAB PO SCH (09:06)
[2020-12-23] MEDS: Enoxaparin Sodium 40 MG/0.4 ML SYRINGE SC SCH (09:06)
[2020-12-23] MEDS: Polyethylene Glycol 3350 17 GM Packet PO SCH (09:07)
[2020-12-23 19:25] LABS: SARS-CoV-2 PCR by NAA Not Detected (NotDetected)
[2020-12-23] MEDS: Atorvastatin Calcium 20 MG TAB PO SCH (21:21)
[2020-12-23] MEDS: Acetaminophen 500 MG TAB PO PRN (21:21)
[2020-12-24] MEDS: Acetaminophen 500 MG TAB PO PRN (05:20)
[2020-12-24] MEDS: Levothyroxine Sodium 25 MCG TAB PO SCH (05:20)
[2020-12-24] MEDS: Ciprofloxacin 500 MG TAB PO SCH ×2 (05:20→21:02)
[2020-12-24 05:24] LABS: #Basophils 0.1 thou/uL (0.0-0.2); #Eosinphils 0.1 thou/uL (0.0-0.7); #Lymphocytes 1.6 thou/uL (1.20-3.40); #Monocytes 0.5 thou/uL (0.11-0.59); #Neutrophils 3.3 thou/uL (1.40-6.50); %Eosinophils 2.2 % (0.0-10.0); %Lymphocytes 28.3 % (21.0-51.0); %Monocytes 8.7 % (0.0-10.0); %Neutrophils 59.8 % (42.0-75.0); Hemoglobin 10.4 g/dL (12.0-16.0); Mean Corpuscular HGB CONC 30.2 g/dL (32.0-36.0); Mean Corpuscular Hemoglobin 27.6 pg (27.0-31.0); Mean Corpuscular Volume 91.4 fL (78.0-98.0); Mean Platelet Volume 7.6 fL (7.4-10.4); Platelet Count 246 thou/uL (130-400); RBC Distribution Width 16.8 % (11.5-14.5); Red Blood Cell (RBC) Count 3.77 mill/uL (4.20-5.40); White Blood Cell (WBC) Count 5.5 thou/uL (4.8-10.8)
[2020-12-24 05:37] LABS: Anion Gap 12 mmol/L (10-20); BUN (Urea Nitrogen) 25 mg/dL (9.8-20.1); Calc. Creatinine Clearance 54 mL/min (70-130); Calcium 9.2 mg/dL (7.8-10.44); Carbon Dioxide 23 mmol/L (23-31); Chloride 106 mmol/L (98-107); Glucose 104 mg/dL (83-110); Potassium 4.1 mmol/L (3.5-5.1); Sodium 137 mmol/L (136-145)
[2020-12-24] MEDS: NIFEdipine XL 30 MG TAB PO SCH (09:03)
[2020-12-24] MEDS: metFORMIN 500 MG TAB PO SCH ×2 (09:03→17:02)
[2020-12-24] MEDS: Aspirin Chewable 81 MG TAB PO SCH (09:03)
[2020-12-24] MEDS: Enoxaparin Sodium 40 MG/0.4 ML SYRINGE SC SCH (09:03)
[2020-12-24] MEDS: Pioglitazone HCl 15 MG TAB PO SCH (09:04)
[2020-12-24] MEDS: Famotidine 20 MG TAB PO SCH ×2 (09:05→21:02)
[2020-12-24] MEDS: Ferrous Sulfate 325 MG TAB PO SCH (09:05)
[2020-12-24] MEDS: Senokot S 8.6-50 MG TAB PO SCH ×2 (09:05→21:03)
[2020-12-24] MEDS: Calcium Carbonate 600 MG + Vit D TAB PO SCH ×2 (09:05→17:02)
[2020-12-24] MEDS: Lisinopril 20 MG TAB PO SCH (09:05)
[2020-12-24] MEDS: Polyethylene Glycol 3350 17 GM Packet PO SCH (09:06)
[2020-12-24] MEDS: HYDROcodone/Acetaminophen 5/325 mg Tablet PO PRN ×3 (09:09→23:59)
[2020-12-24] MEDS: Ondansetron ODT 4 MG TAB SL PRN (12:05)
[2020-12-24] MEDS: Atorvastatin Calcium 20 MG TAB PO SCH (21:03)
[2020-12-25] MEDS: Levothyroxine Sodium 25 MCG TAB PO SCH (06:03)
[2020-12-25] MEDS: Senokot S 8.6-50 MG TAB PO SCH ×2 (08:26→20:36)
[2020-12-25] MEDS: Lisinopril 20 MG TAB PO SCH (08:26)
[2020-12-25] MEDS: Famotidine 20 MG TAB PO SCH ×2 (08:26→20:36)
[2020-12-25] MEDS: Calcium Carbonate 600 MG + Vit D TAB PO SCH ×2 (08:26→16:17)
[2020-12-25] MEDS: metFORMIN 500 MG TAB PO SCH ×2 (08:26→16:17)
[2020-12-25] MEDS: Ferrous Sulfate 325 MG TAB PO SCH (08:26)
[2020-12-25] MEDS: NIFEdipine XL 30 MG TAB PO SCH (08:26)
[2020-12-25] MEDS: Enoxaparin Sodium 40 MG/0.4 ML SYRINGE SC SCH (08:26)
[2020-12-25] MEDS: Aspirin Chewable 81 MG TAB PO SCH (08:26)
[2020-12-25] MEDS: Pioglitazone HCl 15 MG TAB PO SCH (08:26)
[2020-12-25] MEDS: Polyethylene Glycol 3350 17 GM Packet PO SCH (08:27)
[2020-12-25] MEDS: HYDROcodone/Acetaminophen 5/325 mg Tablet PO PRN ×3 (09:03→23:14)
[2020-12-25] MEDS: Atorvastatin Calcium 20 MG TAB PO SCH (20:36)
[2020-12-26] MEDS: Levothyroxine Sodium 25 MCG TAB PO SCH (06:14)
[2020-12-26] MEDS: NIFEdipine XL 30 MG TAB PO SCH (09:13)
[2020-12-26] MEDS: Calcium Carbonate 600 MG + Vit D TAB PO SCH ×2 (09:14→16:46)
[2020-12-26] MEDS: Famotidine 20 MG TAB PO SCH ×2 (09:14→20:33)
[2020-12-26] MEDS: Lisinopril 20 MG TAB PO SCH (09:14)
[2020-12-26] MEDS: Aspirin Chewable 81 MG TAB PO SCH (09:15)
[2020-12-26] MEDS: Pioglitazone HCl 15 MG TAB PO SCH (09:15)
[2020-12-26] MEDS: Senokot S 8.6-50 MG TAB PO SCH ×2 (09:15→20:33)
[2020-12-26] MEDS: Polyethylene Glycol 3350 17 GM Packet PO SCH (09:16)
[2020-12-26] MEDS: Ferrous Sulfate 325 MG TAB PO SCH (09:16)
[2020-12-26] MEDS: metFORMIN 500 MG TAB PO SCH ×2 (09:16→16:46)
[2020-12-26] MEDS: Enoxaparin Sodium 40 MG/0.4 ML SYRINGE SC SCH (09:16)
[2020-12-26] MEDS: HYDROcodone/Acetaminophen 5/325 mg Tablet PO PRN ×2 (09:22→17:01)
[2020-12-26] MEDS: Atorvastatin Calcium 20 MG TAB PO SCH (20:33)
[2020-12-27] MEDS: Ondansetron ODT 4 MG TAB SL PRN (01:23)
[2020-12-27] MEDS: Levothyroxine Sodium 25 MCG TAB PO SCH (05:28)
[2020-12-27] MEDS: Senokot S 8.6-50 MG TAB PO SCH ×2 (09:03→20:43)
[2020-12-27] MEDS: NIFEdipine XL 30 MG TAB PO SCH (09:03)
[2020-12-27] MEDS: Lisinopril 20 MG TAB PO SCH (09:03)
[2020-12-27] MEDS: Aspirin Chewable 81 MG TAB PO SCH (09:04)
[2020-12-27] MEDS: metFORMIN 500 MG TAB PO SCH ×2 (09:04→16:57)
[2020-12-27] MEDS: Calcium Carbonate 600 MG + Vit D TAB PO SCH ×2 (09:04→16:57)
[2020-12-27] MEDS: Pioglitazone HCl 15 MG TAB PO SCH (09:04)
[2020-12-27] MEDS: Oxybutynin 5 MG TAB PO SCH (09:04)
[2020-12-27] MEDS: Ferrous Sulfate 325 MG TAB PO SCH (09:04)
[2020-12-27] MEDS: HYDROcodone/Acetaminophen 5/325 mg Tablet PO PRN ×2 (09:05→20:42)
[2020-12-27] MEDS: Famotidine 20 MG TAB PO SCH ×2 (09:06→20:43)
[2020-12-27] MEDS: Polyethylene Glycol 3350 17 GM Packet PO SCH (09:07)
[2020-12-27] MEDS: Enoxaparin Sodium 40 MG/0.4 ML SYRINGE SC SCH (09:07)
[2020-12-27] MEDS: Atorvastatin Calcium 20 MG TAB PO SCH (20:43)
[2020-12-28] MEDS: Levothyroxine Sodium 25 MCG TAB PO SCH (05:30)
[2020-12-28] MEDS ORDERED: NIFEdipine XL 30 MG TAB ONE (08:28)
[2020-12-28] MEDS: HYDROcodone/Acetaminophen 5/325 mg Tablet PO PRN ×2 (08:56→16:32)
[2020-12-28] MEDS: NIFEdipine XL 30 MG TAB PO SCH (08:57)
[2020-12-28] MEDS: Enoxaparin Sodium 40 MG/0.4 ML SYRINGE SC SCH (08:57)
[2020-12-28] MEDS: Aspirin Chewable 81 MG TAB PO SCH (08:58)
[2020-12-28] MEDS: Oxybutynin 5 MG TAB PO SCH (08:58)
[2020-12-28] MEDS: Ferrous Sulfate 325 MG TAB PO SCH (08:58)
[2020-12-28] MEDS: Pioglitazone HCl 15 MG TAB PO SCH (08:58)
[2020-12-28] MEDS: metFORMIN 500 MG TAB PO SCH ×2 (08:58→16:22)
[2020-12-28] MEDS: Calcium Carbonate 600 MG + Vit D TAB PO SCH ×2 (08:59→16:22)
[2020-12-28] MEDS: Famotidine 20 MG TAB PO SCH ×2 (08:59→20:19)
[2020-12-28] MEDS: Lisinopril 20 MG TAB PO SCH (08:59)
[2020-12-28] MEDS: Senokot S 8.6-50 MG TAB PO SCH ×2 (08:59→20:19)
[2020-12-28] MEDS: Polyethylene Glycol 3350 17 GM Packet PO SCH (09:00)
[2020-12-28] MEDS: Atorvastatin Calcium 20 MG TAB PO SCH (20:19)
[2020-12-29] MEDS: HYDROcodone/Acetaminophen 5/325 mg Tablet PO PRN ×3 (00:25→14:18)
[2020-12-29] MEDS: Levothyroxine Sodium 25 MCG TAB PO SCH (05:26)
[2020-12-29 07:26] LABS: Bilirubin Negative (Negative); Blood, Urine Negative (Negative); Clarity Clear (Clear); Glucose, Urine (Dipstick) Negative (Negative); Ketone, Urine Negative (Negative); Leukocyte Negative (Negative); Nitrite Positive (Negative); Protein, Urine (Dipstick) Negative (Neg-Trace); Specific Gravity, Urine 1.015 (1.005-1.030); Urobilinogen 0.2 mg/dL (Less than 2)
[2020-12-29 07:33] LABS: Bacteria/HPF 3+ HPF (None Seen); RBC/HPF None Seen HPF (0-3); Squamous Epithelial None Seen HPF (0-3); WBC/HPF 0-3 HPF (0-3)
[2020-12-29] MEDS ORDERED: NIFEdipine XL 30 MG TAB ONE (08:08)
[2020-12-29] MEDS: NIFEdipine XL 30 MG TAB PO SCH (08:26)
[2020-12-29] MEDS: Oxybutynin 5 MG TAB PO SCH (08:27)
[2020-12-29] MEDS: Calcium Carbonate 600 MG + Vit D TAB PO SCH ×2 (08:27→17:06)
[2020-12-29] MEDS: metFORMIN 500 MG TAB PO SCH ×2 (08:27→17:06)
[2020-12-29] MEDS: Lisinopril 20 MG TAB PO SCH (08:27)
[2020-12-29] MEDS: Senokot S 8.6-50 MG TAB PO SCH ×2 (08:27→21:00)
[2020-12-29] MEDS: Aspirin Chewable 81 MG TAB PO SCH (08:28)
[2020-12-29] MEDS: Polyethylene Glycol 3350 17 GM Packet PO SCH ×2 (08:28→08:38)
[2020-12-29] MEDS: Ferrous Sulfate 325 MG TAB PO SCH (08:28)
[2020-12-29] MEDS: Famotidine 20 MG TAB PO SCH ×2 (08:28→21:00)
[2020-12-29] MEDS: Pioglitazone HCl 15 MG TAB PO SCH ×2 (08:28→08:40)
[2020-12-29] MEDS: Enoxaparin Sodium 40 MG/0.4 ML SYRINGE SC SCH (08:29)
[2020-12-29] MEDS: Sulfameth/Trimethoprim DS 800-160mg TAB PO SCH (21:00)
[2020-12-29] MEDS: Atorvastatin Calcium 20 MG TAB PO SCH (21:00)
[2020-12-30] MEDS: HYDROcodone/Acetaminophen 5/325 mg Tablet PO PRN ×3 (03:54→15:38)
[2020-12-30] MEDS: Levothyroxine Sodium 25 MCG TAB PO SCH (06:20)
[2020-12-30] MEDS: Ferrous Sulfate 325 MG TAB PO SCH (09:37)
[2020-12-30] MEDS: Oxybutynin 5 MG TAB PO SCH (09:37)
[2020-12-30] MEDS: Pioglitazone HCl 15 MG TAB PO SCH (09:37)
[2020-12-30] MEDS: Senokot S 8.6-50 MG TAB PO SCH ×2 (09:38→21:20)
[2020-12-30] MEDS: Lisinopril 20 MG TAB PO SCH (09:38)
[2020-12-30] MEDS: Famotidine 20 MG TAB PO SCH ×2 (09:38→21:21)
[2020-12-30] MEDS: Calcium Carbonate 600 MG + Vit D TAB PO SCH ×2 (09:38→16:45)
[2020-12-30] MEDS: Aspirin Chewable 81 MG TAB PO SCH (09:38)
[2020-12-30] MEDS: metFORMIN 500 MG TAB PO SCH ×2 (09:38→16:46)
[2020-12-30] MEDS: Sulfameth/Trimethoprim DS 800-160mg TAB PO SCH ×2 (09:39→21:21)
[2020-12-30] MEDS: Enoxaparin Sodium 40 MG/0.4 ML SYRINGE SC SCH (09:39)
[2020-12-30] MEDS: NIFEdipine XL 30 MG TAB PO SCH (12:41)
[2020-12-30] MEDS: Ondansetron ODT 4 MG TAB SL PRN (18:23)
[2020-12-30] MEDS: Atorvastatin Calcium 20 MG TAB PO SCH (21:21)
[2020-12-31] MEDS: Levothyroxine Sodium 25 MCG TAB PO SCH (05:29)
[2020-12-31] MEDS: HYDROcodone/Acetaminophen 5/325 mg Tablet PO PRN ×3 (07:38→22:39)
[2020-12-31] MEDS: Ferrous Sulfate 325 MG TAB PO SCH (07:40)
[2020-12-31] MEDS: metFORMIN 500 MG TAB PO SCH ×2 (07:40→17:08)
[2020-12-31] MEDS: Calcium Carbonate 600 MG + Vit D TAB PO SCH ×2 (07:40→17:08)
[2020-12-31] MEDS: Famotidine 20 MG TAB PO SCH ×2 (09:33→21:12)
[2020-12-31] MEDS: Pioglitazone HCl 15 MG TAB PO SCH (09:33)
[2020-12-31] MEDS: Enoxaparin Sodium 40 MG/0.4 ML SYRINGE SC SCH (09:33)
[2020-12-31] MEDS: Lisinopril 20 MG TAB PO SCH (09:33)
[2020-12-31] MEDS: Sulfameth/Trimethoprim DS 800-160mg TAB PO SCH ×2 (09:33→21:12)
[2020-12-31] MEDS: Senokot S 8.6-50 MG TAB PO SCH ×2 (09:34→21:12)
[2020-12-31] MEDS: Oxybutynin 5 MG TAB PO SCH (09:34)
[2020-12-31] MEDS: Aspirin Chewable 81 MG TAB PO SCH (09:34)
[2020-12-31] MEDS: NIFEdipine XL 30 MG TAB PO SCH (18:08)
[2020-12-31] MEDS: Atorvastatin Calcium 20 MG TAB PO SCH (21:12)
[2020-12-31 23:29] LABS: SARS-CoV-2 PCR by NAA Not Detected (NotDetected)
[2021-01-01] MEDS: Levothyroxine Sodium 25 MCG TAB PO SCH (06:22)
[2021-01-01] MEDS: HYDROcodone/Acetaminophen 5/325 mg Tablet PO PRN ×2 (09:11→18:52)
[2021-01-01] MEDS: Ferrous Sulfate 325 MG TAB PO SCH (09:12)
[2021-01-01] MEDS: Aspirin Chewable 81 MG TAB PO SCH (09:12)
[2021-01-01] MEDS: Calcium Carbonate 600 MG + Vit D TAB PO SCH ×2 (09:12→16:42)
[2021-01-01] MEDS: Famotidine 20 MG TAB PO SCH ×2 (09:12→21:35)
[2021-01-01] MEDS: Pioglitazone HCl 15 MG TAB PO SCH (09:12)
[2021-01-01] MEDS: metFORMIN 500 MG TAB PO SCH ×2 (09:12→16:42)
[2021-01-01] MEDS: Sulfameth/Trimethoprim DS 800-160mg TAB PO SCH ×2 (09:13→21:35)
[2021-01-01] MEDS: Enoxaparin Sodium 40 MG/0.4 ML SYRINGE SC SCH (09:13)
[2021-01-01] MEDS: Oxybutynin 5 MG TAB PO SCH (09:13)
[2021-01-01] MEDS: Lisinopril 20 MG TAB PO SCH (09:13)
[2021-01-01] MEDS: Senokot S 8.6-50 MG TAB PO SCH ×2 (09:13→21:35)
[2021-01-01] MEDS: NIFEdipine XL 30 MG TAB PO SCH (11:16)
[2021-01-01] MEDS: Atorvastatin Calcium 20 MG TAB PO SCH (21:35)
[2021-01-02] MEDS: Levothyroxine Sodium 25 MCG TAB PO SCH (05:50)
[2021-01-02] MEDS: Enoxaparin Sodium 40 MG/0.4 ML SYRINGE SC SCH (08:59)
[2021-01-02] MEDS: NIFEdipine XL 30 MG TAB PO SCH (09:00)
[2021-01-02] MEDS: Lisinopril 20 MG TAB PO SCH (09:00)
[2021-01-02] MEDS: Calcium Carbonate 600 MG + Vit D TAB PO SCH ×2 (09:00→16:53)
[2021-01-02] MEDS: Senokot S 8.6-50 MG TAB PO SCH ×2 (09:01→20:17)
[2021-01-02] MEDS: Famotidine 20 MG TAB PO SCH ×2 (09:01→20:17)
[2021-01-02] MEDS: Sulfameth/Trimethoprim DS 800-160mg TAB PO SCH ×2 (09:03→20:16)
[2021-01-02] MEDS: metFORMIN 500 MG TAB PO SCH ×2 (09:04→16:53)
[2021-01-02] MEDS: Ferrous Sulfate 325 MG TAB PO SCH (09:05)
[2021-01-02] MEDS: Oxybutynin 5 MG TAB PO SCH (09:05)
[2021-01-02] MEDS: Aspirin Chewable 81 MG TAB PO SCH (09:06)
[2021-01-02] MEDS: Pioglitazone HCl 15 MG TAB PO SCH (09:06)
[2021-01-02] MEDS: HYDROcodone/Acetaminophen 5/325 mg Tablet PO PRN (09:17)
[2021-01-02] MEDS: Atorvastatin Calcium 20 MG TAB PO SCH (20:17)
[2021-01-03] MEDS: Levothyroxine Sodium 25 MCG TAB PO SCH (05:28)
[2021-01-03] MEDS: Ferrous Sulfate 325 MG TAB PO SCH (08:36)
[2021-01-03] MEDS: Famotidine 20 MG TAB PO SCH ×2 (08:36→20:12)
[2021-01-03] MEDS: Calcium Carbonate 600 MG + Vit D TAB PO SCH ×2 (08:36→16:24)
[2021-01-03] MEDS: Aspirin Chewable 81 MG TAB PO SCH (08:37)
[2021-01-03] MEDS: Enoxaparin Sodium 40 MG/0.4 ML SYRINGE SC SCH (08:37)
[2021-01-03] MEDS: metFORMIN 500 MG TAB PO SCH ×2 (08:37→16:24)
[2021-01-03] MEDS: Lisinopril 20 MG TAB PO SCH (08:38)
[2021-01-03] MEDS: NIFEdipine XL 30 MG TAB PO SCH (08:39)
[2021-01-03] MEDS: Pioglitazone HCl 15 MG TAB PO SCH (08:40)
[2021-01-03] MEDS: Oxybutynin 5 MG TAB PO SCH (08:40)
[2021-01-03] MEDS: Senokot S 8.6-50 MG TAB PO SCH ×2 (08:41→20:13)
[2021-01-03] MEDS: Sulfameth/Trimethoprim DS 800-160mg TAB PO SCH ×2 (08:41→20:11)
[2021-01-03] MEDS: Acetaminophen 500 MG TAB PO PRN (18:02)
[2021-01-03] MEDS ORDERED: traZODone HCl 50 MG TAB PO PRN (19:39)
[2021-01-03] MEDS: Atorvastatin Calcium 20 MG TAB PO SCH (20:12)
[2021-01-04] MEDS: Levothyroxine Sodium 25 MCG TAB PO SCH (05:56)
[2021-01-04] MEDS: Ferrous Sulfate 325 MG TAB PO SCH (09:02)
[2021-01-04] MEDS: Senokot S 8.6-50 MG TAB PO SCH ×2 (09:02→20:36)
[2021-01-04] MEDS: Oxybutynin 5 MG TAB PO SCH (09:02)
[2021-01-04] MEDS: metFORMIN 500 MG TAB PO SCH ×2 (09:02→17:00)
[2021-01-04] MEDS: Lisinopril 20 MG TAB PO SCH (09:02)
[2021-01-04] MEDS: Sulfameth/Trimethoprim DS 800-160mg TAB PO SCH ×2 (09:02→20:36)
[2021-01-04] MEDS: Calcium Carbonate 600 MG + Vit D TAB PO SCH ×2 (09:02→17:00)
[2021-01-04] MEDS: Enoxaparin Sodium 40 MG/0.4 ML SYRINGE SC SCH (09:03)
[2021-01-04] MEDS: Aspirin Chewable 81 MG TAB PO SCH (09:03)
[2021-01-04] MEDS: Pioglitazone HCl 15 MG TAB PO SCH (09:03)
[2021-01-04] MEDS: HYDROcodone/Acetaminophen 5/325 mg Tablet PO PRN (09:08)
[2021-01-04] MEDS: Famotidine 20 MG TAB PO SCH ×2 (09:48→20:39)
[2021-01-04] MEDS: NIFEdipine XL 30 MG TAB PO SCH (10:51)
[2021-01-04] MEDS: Acetaminophen 500 MG TAB PO PRN (17:01)
[2021-01-04] MEDS: Atorvastatin Calcium 20 MG TAB PO SCH (20:36)
[2021-01-04] MEDS: Melatonin 3 MG TAB PO PRN (21:17)
[2021-01-04 21:56] LABS: Bilirubin Negative (Negative); Blood, Urine Negative (Negative); Clarity Clear (Clear); Glucose, Urine (Dipstick) Negative (Negative); Ketone, Urine 15 mg/dL (Negative); Leukocyte Negative (Negative); Nitrite Negative (Negative); Protein, Urine (Dipstick) Negative (Neg-Trace); Urobilinogen 0.2 mg/dL (Less than 2); pH, Urine 5.5 (5.0-9.0)
[2021-01-04 22:43] LABS: Bacteria/HPF None Seen HPF (None Seen); RBC/HPF None Seen HPF (0-3); WBC/HPF None Seen HPF (0-3)
[2021-01-05] MEDS: Levothyroxine Sodium 25 MCG TAB PO SCH (05:32)
[2021-01-05] MEDS: Acetaminophen 500 MG TAB PO PRN (08:52)
[2021-01-05] MEDS: Calcium Carbonate 600 MG + Vit D TAB PO SCH ×2 (08:53→17:03)
[2021-01-05] MEDS: NIFEdipine XL 30 MG TAB PO SCH (08:53)
[2021-01-05] MEDS: Enoxaparin Sodium 40 MG/0.4 ML SYRINGE SC SCH (08:54)
[2021-01-05] MEDS: Oxybutynin 5 MG TAB PO SCH (08:55)
[2021-01-05] MEDS: metFORMIN 500 MG TAB PO SCH ×2 (08:55→17:04)
[2021-01-05] MEDS: Aspirin Chewable 81 MG TAB PO SCH (08:55)
[2021-01-05] MEDS: Ferrous Sulfate 325 MG TAB PO SCH (08:55)
[2021-01-05] MEDS: Sulfameth/Trimethoprim DS 800-160mg TAB PO SCH ×2 (08:55→20:28)
[2021-01-05] MEDS: Lisinopril 20 MG TAB PO SCH (08:55)
[2021-01-05] MEDS: Senokot S 8.6-50 MG TAB PO SCH ×2 (08:56→20:28)
[2021-01-05] MEDS: Pioglitazone HCl 15 MG TAB PO SCH (09:07)
[2021-01-05] MEDS: Famotidine 20 MG TAB PO SCH ×2 (09:07→20:58)
[2021-01-05] MEDS ORDERED: Acetaminophen 500 MG TAB PO PRN (15:00)
[2021-01-05] MEDS: Melatonin 3 MG TAB PO PRN (20:28)
[2021-01-05] MEDS: Atorvastatin Calcium 20 MG TAB PO SCH (20:28)
[2021-01-05] MEDS ORDERED: Famotidine 20 MG TAB ONE (20:57)
[2021-01-06] MEDS: Levothyroxine Sodium 25 MCG TAB PO SCH (05:02)
[2021-01-06 06:32] LABS: #Basophils 0.1 thou/uL (0.0-0.2); #Eosinphils 0.1 thou/uL (0.0-0.7); #Lymphocytes 1.3 thou/uL (1.20-3.40); #Monocytes 0.4 thou/uL (0.11-0.59); #Neutrophils 4.6 thou/uL (1.40-6.50); %Basophils 0.8 % (0.0-1.0); %Eosinophils 0.8 % (0.0-10.0); %Lymphocytes 20.4 % (21.0-51.0); %Monocytes 6.3 % (0.0-10.0); %Neutrophils 71.7 % (42.0-75.0); Hemoglobin 10.1 g/dL (12.0-16.0); Mean Corpuscular HGB CONC 30.1 g/dL (32.0-36.0); Mean Corpuscular Hemoglobin 27.3 pg (27.0-31.0); Mean Corpuscular Volume 90.8 fL (78.0-98.0); Mean Platelet Volume 7.4 fL (7.4-10.4); Platelet Count 261 thou/uL (130-400); RBC Distribution Width 16.7 % (11.5-14.5); White Blood Cell (WBC) Count 6.4 thou/uL (4.8-10.8)
[2021-01-06 06:46] LABS: Anion Gap 13 mmol/L (10-20); BUN (Urea Nitrogen) 28 mg/dL (9.8-20.1); Calc. Creatinine Clearance 49 mL/min (70-130); Calcium 9.1 mg/dL (7.8-10.44); Carbon Dioxide 21 mmol/L (23-31); Chloride 107 mmol/L (98-107); Glucose 99 mg/dL (83-110); Potassium 4.2 mmol/L (3.5-5.1); Sodium 137 mmol/L (136-145)
[2021-01-06] MEDS: Calcium Carbonate 600 MG + Vit D TAB PO SCH ×2 (08:40→16:52)
[2021-01-06] MEDS: Ferrous Sulfate 325 MG TAB PO SCH (08:41)
[2021-01-06] MEDS: metFORMIN 500 MG TAB PO SCH ×2 (08:41→16:53)
[2021-01-06] MEDS: Enoxaparin Sodium 40 MG/0.4 ML SYRINGE SC SCH (08:42)
[2021-01-06] MEDS: Famotidine 20 MG TAB PO SCH ×2 (08:42→10:12)
[2021-01-06] MEDS: Aspirin Chewable 81 MG TAB PO SCH (08:42)
[2021-01-06] MEDS: Lisinopril 20 MG TAB PO SCH (08:42)
[2021-01-06] MEDS: NIFEdipine XL 30 MG TAB PO SCH (08:44)
[2021-01-06] MEDS: Pioglitazone HCl 15 MG TAB PO SCH (08:44)
[2021-01-06] MEDS: Oxybutynin 5 MG TAB PO SCH (08:44)
[2021-01-06] MEDS: Senokot S 8.6-50 MG TAB PO SCH ×2 (08:44→20:42)
[2021-01-06] MEDS: Sulfameth/Trimethoprim DS 800-160mg TAB PO SCH ×2 (08:47→20:42)
[2021-01-06] MEDS: HYDROcodone/Acetaminophen 5/325 mg Tablet PO PRN ×2 (08:48→20:44)
[2021-01-06] MEDS: Ondansetron ODT 4 MG TAB SL PRN (10:14)
[2021-01-06] MEDS: Polyethylene Glycol 3350 17 GM Packet PO PRN (20:42)
[2021-01-06] MEDS: Atorvastatin Calcium 20 MG TAB PO SCH (20:42)
[2021-01-07] MEDS: Levothyroxine Sodium 25 MCG TAB PO SCH (05:50)
[2021-01-07] MEDS: Enoxaparin Sodium 40 MG/0.4 ML SYRINGE SC SCH (08:29)
[2021-01-07] MEDS: Ferrous Sulfate 325 MG TAB PO SCH (08:29)
[2021-01-07] MEDS: metFORMIN 500 MG TAB PO SCH ×2 (08:29→17:44)
[2021-01-07] MEDS: Aspirin Chewable 81 MG TAB PO SCH (08:29)
[2021-01-07] MEDS: Calcium Carbonate 600 MG + Vit D TAB PO SCH ×2 (08:29→17:44)
[2021-01-07] MEDS: Famotidine 20 MG TAB PO SCH (08:30)
[2021-01-07] MEDS: Pioglitazone HCl 15 MG TAB PO SCH (08:31)
[2021-01-07] MEDS: Oxybutynin 5 MG TAB PO SCH ×2 (08:31→20:47)
[2021-01-07] MEDS: NIFEdipine XL 30 MG TAB PO SCH (08:31)
[2021-01-07] MEDS: Lisinopril 20 MG TAB PO SCH (08:31)
[2021-01-07] MEDS: Senokot S 8.6-50 MG TAB PO SCH ×2 (08:32→20:47)
[2021-01-07] MEDS: HYDROcodone/Acetaminophen 5/325 mg Tablet PO PRN ×2 (08:33→15:01)
[2021-01-07] MEDS: Polyethylene Glycol 3350 17 GM Packet PO PRN (08:35)
[2021-01-07] MEDS: Atorvastatin Calcium 20 MG TAB PO SCH (20:47)
[2021-01-08] MEDS: Levothyroxine Sodium 25 MCG TAB PO SCH (05:09)
[2021-01-08] MEDS: Pioglitazone HCl 15 MG TAB PO SCH (08:47)
[2021-01-08] MEDS: metFORMIN 500 MG TAB PO SCH ×2 (08:48→17:02)
[2021-01-08] MEDS: Calcium Carbonate 600 MG + Vit D TAB PO SCH ×2 (08:48→17:02)
[2021-01-08] MEDS: Aspirin Chewable 81 MG TAB PO SCH (08:48)
[2021-01-08] MEDS: Enoxaparin Sodium 40 MG/0.4 ML SYRINGE SC SCH (08:48)
[2021-01-08] MEDS: Ferrous Sulfate 325 MG TAB PO SCH (08:48)
[2021-01-08] MEDS: Senokot S 8.6-50 MG TAB PO SCH ×2 (08:48→20:33)
[2021-01-08] MEDS: NIFEdipine XL 30 MG TAB PO SCH (08:48)
[2021-01-08] MEDS: Lisinopril 20 MG TAB PO SCH (08:48)
[2021-01-08] MEDS: Famotidine 20 MG TAB PO SCH (08:49)
[2021-01-08] MEDS: traMADol HCl 50 MG TAB PO PRN (10:20)
[2021-01-08] MEDS: Oxybutynin 5 MG TAB PO SCH (20:33)
[2021-01-08] MEDS: Atorvastatin Calcium 20 MG TAB PO SCH (20:33)
[2021-01-09] MEDS: Levothyroxine Sodium 25 MCG TAB PO SCH (07:14)
[2021-01-09] MEDS: Aspirin Chewable 81 MG TAB PO SCH (08:47)
[2021-01-09] MEDS: Calcium Carbonate 600 MG + Vit D TAB PO SCH ×2 (08:47→16:57)
[2021-01-09] MEDS: Famotidine 20 MG TAB PO SCH (08:47)
[2021-01-09] MEDS: Senokot S 8.6-50 MG TAB PO SCH ×2 (08:47→20:15)
[2021-01-09] MEDS: Pioglitazone HCl 15 MG TAB PO SCH (08:47)
[2021-01-09] MEDS: NIFEdipine XL 30 MG TAB PO SCH (08:47)
[2021-01-09] MEDS: Enoxaparin Sodium 40 MG/0.4 ML SYRINGE SC SCH (08:48)
[2021-01-09] MEDS: Ferrous Sulfate 325 MG TAB PO SCH (08:48)
[2021-01-09] MEDS: Lisinopril 20 MG TAB PO SCH (08:48)
[2021-01-09] MEDS: metFORMIN 500 MG TAB PO SCH ×2 (08:48→16:57)
[2021-01-09] MEDS: traMADol HCl 50 MG TAB PO PRN (08:51)
[2021-01-09 13:57] LABS: SARS-CoV-2 PCR by NAA Not Detected (NotDetected)
[2021-01-09] MEDS: Atorvastatin Calcium 20 MG TAB PO SCH (20:15)
[2021-01-09] MEDS: Oxybutynin 5 MG TAB PO SCH (20:15)
[2021-01-10] MEDS: traMADol HCl 50 MG TAB PO PRN ×2 (00:13→08:42)
[2021-01-10 04:48] VITALS: BMI 32.3
[2021-01-10] MEDS: Levothyroxine Sodium 25 MCG TAB PO SCH (05:20)
[2021-01-10] MEDS: Ferrous Sulfate 325 MG TAB PO SCH (08:38)
[2021-01-10] MEDS: Aspirin Chewable 81 MG TAB PO SCH (08:38)
[2021-01-10] MEDS: metFORMIN 500 MG TAB PO SCH ×2 (08:38→16:51)
[2021-01-10] MEDS: NIFEdipine XL 30 MG TAB PO SCH (08:38)
[2021-01-10] MEDS: Pioglitazone HCl 15 MG TAB PO SCH (08:38)
[2021-01-10] MEDS: Enoxaparin Sodium 40 MG/0.4 ML SYRINGE SC SCH (08:38)
[2021-01-10] MEDS: Lisinopril 20 MG TAB PO SCH (08:39)
[2021-01-10] MEDS: Calcium Carbonate 600 MG + Vit D TAB PO SCH ×2 (08:39→16:51)
[2021-01-10] MEDS: Senokot S 8.6-50 MG TAB PO SCH ×2 (08:39→21:19)
[2021-01-10] MEDS: Famotidine 20 MG TAB PO SCH (08:39)
[2021-01-10] MEDS: Ondansetron ODT 4 MG TAB SL PRN (14:29)
[2021-01-10] MEDS: Oxybutynin 5 MG TAB PO SCH (21:19)
[2021-01-10] MEDS: Atorvastatin Calcium 20 MG TAB PO SCH (21:19)
[2021-01-11] MEDS: Levothyroxine Sodium 25 MCG TAB PO SCH (05:09)
[2021-01-11] MEDS: Calcium Carbonate 600 MG + Vit D TAB PO SCH ×2 (08:34→17:34)
[2021-01-11] MEDS: Aspirin Chewable 81 MG TAB PO SCH (08:35)
[2021-01-11] MEDS: Enoxaparin Sodium 40 MG/0.4 ML SYRINGE SC SCH (08:35)
[2021-01-11] MEDS: metFORMIN 500 MG TAB PO SCH ×2 (08:35→17:34)
[2021-01-11] MEDS: Ferrous Sulfate 325 MG TAB PO SCH (08:35)
[2021-01-11] MEDS: Lisinopril 20 MG TAB PO SCH (08:36)
[2021-01-11] MEDS: Famotidine 20 MG TAB PO SCH (08:36)
[2021-01-11] MEDS: NIFEdipine XL 30 MG TAB PO SCH (08:37)
[2021-01-11] MEDS: Polyethylene Glycol 3350 17 GM Packet PO PRN (08:38)
[2021-01-11] MEDS: Senokot S 8.6-50 MG TAB PO SCH ×2 (08:38→20:19)
[2021-01-11] MEDS: Pioglitazone HCl 15 MG TAB PO SCH (08:38)
[2021-01-11] MEDS: Ondansetron ODT 4 MG TAB SL PRN (08:46)
[2021-01-11] MEDS: Oxybutynin 5 MG TAB PO SCH (20:19)
[2021-01-11] MEDS: Atorvastatin Calcium 20 MG TAB PO SCH (20:19)
[2021-01-12] MEDS: Levothyroxine Sodium 25 MCG TAB PO SCH (05:14)
[2021-01-12] MEDS: Aspirin Chewable 81 MG TAB PO SCH (08:46)
[2021-01-12] MEDS: Enoxaparin Sodium 40 MG/0.4 ML SYRINGE SC SCH (08:46)
[2021-01-12] MEDS: metFORMIN 500 MG TAB PO SCH ×2 (08:46→16:46)
[2021-01-12] MEDS: Ferrous Sulfate 325 MG TAB PO SCH (08:46)
[2021-01-12] MEDS: Calcium Carbonate 600 MG + Vit D TAB PO SCH ×2 (08:46→16:46)
[2021-01-12] MEDS: Lisinopril 20 MG TAB PO SCH (08:47)
[2021-01-12] MEDS: NIFEdipine XL 30 MG TAB PO SCH (08:47)
[2021-01-12] MEDS: Famotidine 20 MG TAB PO SCH (08:47)
[2021-01-12] MEDS: Senokot S 8.6-50 MG TAB PO SCH ×2 (08:48→20:28)
[2021-01-12] MEDS: Pioglitazone HCl 15 MG TAB PO SCH (08:48)
[2021-01-12] MEDS: Oxybutynin 5 MG TAB PO SCH (20:28)
[2021-01-12] MEDS: Atorvastatin Calcium 20 MG TAB PO SCH (20:29)
[2021-01-13] MEDS: Levothyroxine Sodium 25 MCG TAB PO SCH (05:21)
[2021-01-13] MEDS: Calcium Carbonate 600 MG + Vit D TAB PO SCH ×2 (08:13→17:34)
[2021-01-13] MEDS: NIFEdipine XL 30 MG TAB PO SCH (08:13)
[2021-01-13] MEDS: Famotidine 20 MG TAB PO SCH (08:13)
[2021-01-13] MEDS: Aspirin Chewable 81 MG TAB PO SCH (08:13)
[2021-01-13] MEDS: metFORMIN 500 MG TAB PO SCH ×2 (08:13→17:34)
[2021-01-13] MEDS: Pioglitazone HCl 15 MG TAB PO SCH (08:14)
[2021-01-13] MEDS: Senokot S 8.6-50 MG TAB PO SCH ×2 (08:14→20:30)
[2021-01-13] MEDS: Ferrous Sulfate 325 MG TAB PO SCH (08:14)
[2021-01-13] MEDS: Enoxaparin Sodium 40 MG/0.4 ML SYRINGE SC SCH (08:14)
[2021-01-13] MEDS: Lisinopril 20 MG TAB PO SCH (08:14)
[2021-01-13] MEDS: Ondansetron ODT 4 MG TAB SL PRN (13:41)
[2021-01-13] MEDS: Oxybutynin 5 MG TAB PO SCH (20:30)
[2021-01-13] MEDS: Atorvastatin Calcium 20 MG TAB PO SCH (20:30)
[2021-01-14] MEDS: Levothyroxine Sodium 25 MCG TAB PO SCH (05:06)
[2021-01-14 06:35] LABS: Hemoglobin 10.7 g/dL (12.0-16.0); Platelet Count 244 thou/uL (130-400)
[2021-01-14] MEDS: Aspirin Chewable 81 MG TAB PO SCH (08:37)
[2021-01-14] MEDS: NIFEdipine XL 30 MG TAB PO SCH (08:37)
[2021-01-14] MEDS: Famotidine 20 MG TAB PO SCH (08:38)
[2021-01-14] MEDS: Pioglitazone HCl 15 MG TAB PO SCH (08:38)
[2021-01-14] MEDS: Enoxaparin Sodium 40 MG/0.4 ML SYRINGE SC SCH (08:38)
[2021-01-14] MEDS: Lisinopril 20 MG TAB PO SCH (08:38)
[2021-01-14] MEDS: metFORMIN 500 MG TAB PO SCH ×2 (08:38→16:20)
[2021-01-14] MEDS: Senokot S 8.6-50 MG TAB PO SCH ×2 (08:38→20:15)
[2021-01-14] MEDS: Calcium Carbonate 600 MG + Vit D TAB PO SCH ×2 (08:38→16:20)
[2021-01-14] MEDS: Ferrous Sulfate 325 MG TAB PO SCH (08:38)
[2021-01-14] MEDS: Polyethylene Glycol 3350 17 GM Packet PO PRN (08:43)
[2021-01-14] MEDS: Atorvastatin Calcium 20 MG TAB PO SCH (20:15)
[2021-01-14] MEDS: Oxybutynin 5 MG TAB PO SCH (20:15)
[2021-01-15] MEDS: Levothyroxine Sodium 25 MCG TAB PO SCH (05:05)
[2021-01-15 08:57] VITALS: TEMP 98
[2021-01-15] MEDS: Enoxaparin Sodium 40 MG/0.4 ML SYRINGE SC SCH (08:58)
[2021-01-15] MEDS: Aspirin Chewable 81 MG TAB PO SCH (08:59)
[2021-01-15] MEDS: metFORMIN 500 MG TAB PO SCH (08:59)
[2021-01-15] MEDS: Ferrous Sulfate 325 MG TAB PO SCH (08:59)
[2021-01-15] MEDS: Calcium Carbonate 600 MG + Vit D TAB PO SCH (08:59)
[2021-01-15] MEDS: NIFEdipine XL 30 MG TAB PO SCH (08:59)
[2021-01-15] MEDS: Pioglitazone HCl 15 MG TAB PO SCH (08:59)
[2021-01-15] MEDS: Lisinopril 20 MG TAB PO SCH (08:59)
[2021-01-15] MEDS: Senokot S 8.6-50 MG TAB PO SCH (08:59)
[2021-01-15] MEDS: Famotidine 20 MG TAB PO SCH (08:59)
[2021-01-15 09:00] VITALS: BP 134/60
== END 2021-01-15 15:00 | disposition home health service (06) | DRG 560 ==
LOC: NAV ACUTE 12:35
PROVIDERS: ADMIT Family Medicine; ATTEND Family Medicine
DX: S72.001D Fracture of unspecified part of neck of right femur, subsequent encounter for closed fracture with routine healing (principal); N39.0 Urinary tract infection, site not specified; W19.XXXD Unspecified fall, subsequent encounter; I10 Essential (primary) hypertension; E03.9 Hypothyroidism, unspecified; E66.9 Obesity, unspecified; E11.51 Type 2 diabetes mellitus with diabetic peripheral angiopathy without gangrene; E78.5 Hyperlipidemia, unspecified; R53.81 Other malaise; Z20.822 Contact with and (suspected) exposure to COVID-19; J30.9 Allergic rhinitis, unspecified; R09.1 Pleurisy; Z90.89 Acquired absence of other organs; Z98.51 Tubal ligation status; Z90.710 Acquired absence of both cervix and uterus; Z98.890 Other specified postprocedural states; Z79.82 Long term (current) use of aspirin; Z79.84 Long term (current) use of oral hypoglycemic drugs; Z79.899 Other long term (current) drug therapy; Z68.32 Body mass index [BMI] 32.0-32.9, adult
CPT/HCPCS: 0240U; 36415; 36416; 80048; 80053; 81001; 81003; 81015; 82565; 85014; 85018; 85025; 85049; 87086; J1650; J1815; Q0162; U0003; U0005

== ENCOUNTER 2022-08-23 11:31 | Inpatient (IN) | payer MEDICARE ==
[2022-08-23] MEDS ORDERED: Furosemide 40 MG/4 ML VIAL SLOW IVP SCH (13:30)
[2022-08-23 13:52] LABS: #Basophils 0.1 thou/uL (0.0-0.2); #Eosinphils 0.1 thou/uL (0.0-0.7); #Lymphocytes 1.2 thou/uL (1.20-3.40); #Monocytes 0.5 thou/uL (0.11-0.59); #Neutrophils 4.9 thou/uL (1.40-6.50); %Basophils 0.9 % (0.0-1.0); %Eosinophils 1.3 % (0.0-10.0); %Lymphocytes 17.7 % (21.0-51.0); %Neutrophils 73.1 % (42.0-75.0); Hemoglobin 9.6 g/dL (12.0-16.0); Mean Corpuscular HGB CONC 30.1 g/dL (32.0-36.0); Mean Corpuscular Volume 89.6 fl (78.0-98.0); Mean Platelet Volume 9.4 fL (7.4-10.4); Platelet Count 148 10x3/uL (130-400); RBC Distribution Width 17.7 % (11.5-14.5); Red Blood Cell (RBC) Count 3.54 mill/uL (4.20-5.40); White Blood Cell (WBC) Count 6.6 10x3/uL (4.8-10.8)
[2022-08-23 14:05] LABS: ALT (SGPT) 10 U/L (8-55); AST (SGOT) 19 U/L (5-34); Albumin 4.2 g/dL (3.4-4.8); Alkaline Phosphatase 60 U/L (40-110); BUN (Urea Nitrogen) 49 mg/dL (9.8-20.1); Bilirubin, Total 0.7 mg/dL (0.2-1.2); Calc. Creatinine Clearance 46 mL/min (70-130); Calcium 9.8 mg/dL (7.8-10.44); Estimated GFR 40; Globulin 3.2 g/dL (2.4-3.5); Glucose 198 mg/dL (83-110); Protein, Total 7.4 g/dL (5.8-8.1)
[2022-08-23 14:08] LABS: Troponin I Less than 0.010 ng/mL (< 0.028)
[2022-08-23] MEDS ORDERED: Guaifenesin DM 100-10/5 ML UDCUP PO PRN (14:14)
[2022-08-23] MEDS ORDERED: Bisacodyl 10 MG SUPP PR PRN (14:14)
[2022-08-23] MEDS ORDERED: Dextrose 50% Abboject 50 ML SYRINGE SLOW IVP PRN (14:14)
[2022-08-23] MEDS ORDERED: Calcium Carbonate 500 MG ChewTAB PO PRN (14:14)
[2022-08-23] MEDS ORDERED: Acetaminophen 650 MG Suppository PR PRN (14:14)
[2022-08-23] MEDS ORDERED: Bisacodyl 5 MG TAB PO PRN (14:14)
[2022-08-23] MEDS ORDERED: Artificial Tear Sol 15 ML BOT EA EYE PRN (14:18)
[2022-08-23] MEDS ORDERED: HumaLOG 300 UNITS/3 ML VIAL SC PRN (14:18)
[2022-08-23] MEDS ORDERED: Sodium Chloride 0.65% Nasal 44 ML BOT EA NARE PRN (14:18)
[2022-08-23] MEDS ORDERED: Benzonatate 100 MG CAP PO PRN (14:18)
[2022-08-23] MEDS ORDERED: Cepastat Lozenges 1 LOZ PO PRN (14:18)
[2022-08-23 14:26] LABS: Anion Gap 18 mmol/L (10-20); Carbon Dioxide 37 mmol/L (23-31); Chloride 92 mmol/L (98-107); Potassium 4.2 mmol/L (3.5-5.1); Sodium 143 mmol/L (136-145)
[2022-08-23] MEDS: Carvedilol 6.25 MG TAB PO SCH (17:03)
[2022-08-23] MEDS: HumaLOG 300 UNITS/3 ML VIAL SC PRN (17:05)
[2022-08-23] MEDS: Atorvastatin Calcium 20 MG TAB PO SCH (20:25)
[2022-08-24] MEDS: Levothyroxine Sodium 25 MCG TAB PO SCH (05:07)
[2022-08-24 06:02] LABS: #Basophils 0.1 thou/uL (0.0-0.2); #Eosinphils 0.1 thou/uL (0.0-0.7); #Lymphocytes 1.2 thou/uL (1.20-3.40); #Monocytes 0.5 thou/uL (0.11-0.59); #Neutrophils 4.4 thou/uL (1.40-6.50); %Basophils 1.1 % (0.0-1.0); %Eosinophils 1.4 % (0.0-10.0); %Lymphocytes 18.4 % (21.0-51.0); %Monocytes 8.3 % (0.0-10.0); %Neutrophils 70.8 % (42.0-75.0); Hemoglobin 9.3 g/dL (12.0-16.0); Mean Corpuscular HGB CONC 30.7 g/dL (32.0-36.0); Mean Corpuscular Hemoglobin 27.1 pg (27.0-31.0); Mean Corpuscular Volume 88.3 fl (78.0-98.0); Mean Platelet Volume 9.4 fL (7.4-10.4); Platelet Count 130 10x3/uL (130-400); RBC Distribution Width 16.8 % (11.5-14.5); Red Blood Cell (RBC) Count 3.43 mill/uL (4.20-5.40); White Blood Cell (WBC) Count 6.2 10x3/uL (4.8-10.8)
[2022-08-24] MEDS: Metolazone 5 MG TAB PO SCH (08:27)
[2022-08-24] MEDS: NIFEdipine XL 30 MG TAB PO SCH (08:29)
[2022-08-24] MEDS: Aspirin Chewable 81 MG TAB PO SCH (08:31)
[2022-08-24] MEDS: Pioglitazone HCl 15 MG TAB PO SCH (08:31)
[2022-08-24] MEDS: Carvedilol 6.25 MG TAB PO SCH ×2 (08:32→17:12)
[2022-08-24] MEDS: metFORMIN 500 MG TAB PO SCH (08:32)
[2022-08-24] MEDS: Lisinopril 20 MG TAB PO SCH (08:32)
[2022-08-24] MEDS: Ferrous Sulfate 325 MG TAB PO SCH (08:33)
[2022-08-24] MEDS ORDERED: Furosemide 40 MG/4 ML VIAL SLOW IVP SCH (13:00)
[2022-08-24] MEDS: Furosemide 40 MG TAB PO SCH (14:57)
[2022-08-24] MEDS: Atorvastatin Calcium 20 MG TAB PO SCH (20:31)
[2022-08-25] MEDS: Levothyroxine Sodium 25 MCG TAB PO SCH (05:17)
[2022-08-25] MEDS: Ferrous Sulfate 325 MG TAB PO SCH (08:42)
[2022-08-25] MEDS: metFORMIN 500 MG TAB PO SCH (08:42)
[2022-08-25] MEDS: Pioglitazone HCl 15 MG TAB PO SCH (08:42)
[2022-08-25] MEDS: Carvedilol 6.25 MG TAB PO SCH ×2 (08:42→17:24)
[2022-08-25] MEDS: Metolazone 5 MG TAB PO SCH (08:43)
[2022-08-25] MEDS: Aspirin Chewable 81 MG TAB PO SCH (08:45)
[2022-08-25] MEDS: NIFEdipine XL 30 MG TAB PO SCH (08:45)
[2022-08-25] MEDS: Lisinopril 20 MG TAB PO SCH (08:45)
[2022-08-25] MEDS: Furosemide 40 MG TAB PO SCH ×2 (08:45→14:52)
[2022-08-25] MEDS: Senokot S 8.6-50 MG TAB PO PRN (14:53)
[2022-08-25] MEDS: Atorvastatin Calcium 20 MG TAB PO SCH (20:22)
[2022-08-26] MEDS: Levothyroxine Sodium 25 MCG TAB PO SCH (05:08)
[2022-08-26] MEDS: HumaLOG 300 UNITS/3 ML VIAL SC PRN (06:03)
[2022-08-26] MEDS: Metolazone 5 MG TAB PO SCH (09:19)
[2022-08-26] MEDS: NIFEdipine XL 30 MG TAB PO SCH (09:19)
[2022-08-26] MEDS: metFORMIN 500 MG TAB PO SCH (09:19)
[2022-08-26] MEDS: Pioglitazone HCl 15 MG TAB PO SCH (09:20)
[2022-08-26] MEDS: Carvedilol 6.25 MG TAB PO SCH ×2 (09:21→15:29)
[2022-08-26] MEDS: Lisinopril 20 MG TAB PO SCH (09:21)
[2022-08-26] MEDS: Ferrous Sulfate 325 MG TAB PO SCH (09:22)
[2022-08-26] MEDS: Furosemide 40 MG TAB PO SCH ×2 (09:23→14:19)
[2022-08-26] MEDS: Aspirin Chewable 81 MG TAB PO SCH (09:23)
[2022-08-26] MEDS: Atorvastatin Calcium 20 MG TAB PO SCH (20:54)
[2022-08-27] MEDS: Levothyroxine Sodium 25 MCG TAB PO SCH (05:27)
[2022-08-27] MEDS: metFORMIN 500 MG TAB PO SCH (07:59)
[2022-08-27] MEDS: Carvedilol 6.25 MG TAB PO SCH ×2 (07:59→16:23)
[2022-08-27] MEDS: Ferrous Sulfate 325 MG TAB PO SCH (07:59)
[2022-08-27] MEDS: Metolazone 5 MG TAB PO SCH (08:00)
[2022-08-27] MEDS: Pioglitazone HCl 15 MG TAB PO SCH (08:00)
[2022-08-27] MEDS: NIFEdipine XL 30 MG TAB PO SCH (08:00)
[2022-08-27] MEDS: Furosemide 40 MG TAB PO SCH ×2 (08:01→14:23)
[2022-08-27] MEDS: Aspirin Chewable 81 MG TAB PO SCH (08:01)
[2022-08-27] MEDS: Lisinopril 20 MG TAB PO SCH (08:01)
[2022-08-27 12:58] LABS: BUN (Urea Nitrogen) 66 mg/dL (9.8-20.1); Calc. Creatinine Clearance 33 mL/min (70-130); Calcium 9.2 mg/dL (7.8-10.44); Estimated GFR 29; Glucose 127 mg/dL (83-110)
[2022-08-27 13:02] LABS: Chloride 86 mmol/L (98-107); Potassium 3.6 mmol/L (3.5-5.1); Sodium 139 mmol/L (136-145)
[2022-08-27 13:41] LABS: Carbon Dioxide 34 mmol/L (23-31)
[2022-08-27 13:42] LABS: Anion Gap 23 mmol/L (10-20)
[2022-08-27] MEDS: HumaLOG 300 UNITS/3 ML VIAL SC PRN (16:19)
[2022-08-27] MEDS: Atorvastatin Calcium 20 MG TAB PO SCH (21:02)
[2022-08-28] MEDS: Levothyroxine Sodium 25 MCG TAB PO SCH (05:50)
[2022-08-28] MEDS: NIFEdipine XL 30 MG TAB PO SCH (08:09)
[2022-08-28] MEDS: Pioglitazone HCl 15 MG TAB PO SCH (08:09)
[2022-08-28] MEDS: Ferrous Sulfate 325 MG TAB PO SCH (08:09)
[2022-08-28] MEDS: metFORMIN 500 MG TAB PO SCH (08:09)
[2022-08-28] MEDS: Carvedilol 6.25 MG TAB PO SCH ×2 (08:10→16:34)
[2022-08-28] MEDS: Furosemide 40 MG TAB PO SCH (08:10)
[2022-08-28] MEDS: Lisinopril 20 MG TAB PO SCH (08:10)
[2022-08-28] MEDS: Aspirin Chewable 81 MG TAB PO SCH (08:10)
[2022-08-28] MEDS: Metolazone 5 MG TAB PO SCH (08:10)
[2022-08-28] MEDS: Atorvastatin Calcium 20 MG TAB PO SCH (20:35)
[2022-08-28] MEDS: Senokot S 8.6-50 MG TAB PO PRN (21:14)
[2022-08-28] MEDS: Acetaminophen 325 MG TAB PO PRN (23:57)
[2022-08-29] MEDS: Levothyroxine Sodium 25 MCG TAB PO SCH (05:35)
[2022-08-29 06:19] LABS: Anion Gap 17 mmol/L (10-20); BUN (Urea Nitrogen) 87 mg/dL (9.8-20.1); Calc. Creatinine Clearance 30 mL/min (70-130); Calcium 8.8 mg/dL (7.8-10.44); Carbon Dioxide 37 mmol/L (23-31); Chloride 90 mmol/L (98-107); Estimated GFR 25; Glucose 119 mg/dL (83-110); Potassium 3.7 mmol/L (3.5-5.1); Sodium 140 mmol/L (136-145)
[2022-08-29] MEDS: Furosemide 40 MG TAB PO SCH (08:46)
[2022-08-29] MEDS: Pioglitazone HCl 15 MG TAB PO SCH (08:46)
[2022-08-29] MEDS: Aspirin Chewable 81 MG TAB PO SCH (08:46)
[2022-08-29] MEDS: metFORMIN 500 MG TAB PO SCH (08:47)
[2022-08-29] MEDS: Metolazone 5 MG TAB PO SCH (08:47)
[2022-08-29] MEDS: Ferrous Sulfate 325 MG TAB PO SCH (08:47)
[2022-08-29] MEDS: Lisinopril 20 MG TAB PO SCH (08:48)
[2022-08-29] MEDS: NIFEdipine XL 30 MG TAB PO SCH (08:48)
[2022-08-29] MEDS: Carvedilol 6.25 MG TAB PO SCH ×2 (08:48→17:07)
[2022-08-29] MEDS: Atorvastatin Calcium 20 MG TAB PO SCH (21:04)
[2022-08-30] MEDS: Levothyroxine Sodium 25 MCG TAB PO SCH (05:15)
[2022-08-30 06:24] LABS: Anion Gap 16 mmol/L (10-20); BUN (Urea Nitrogen) 89 mg/dL (9.8-20.1); Calc. Creatinine Clearance 33 mL/min (70-130); Calcium 8.9 mg/dL (7.8-10.44); Carbon Dioxide 36 mmol/L (23-31); Chloride 93 mmol/L (98-107); Estimated GFR 29; Glucose 113 mg/dL (83-110); Potassium 3.5 mmol/L (3.5-5.1); Sodium 141 mmol/L (136-145)
[2022-08-30] MEDS: Metolazone 5 MG TAB PO SCH (08:14)
[2022-08-30] MEDS: Carvedilol 6.25 MG TAB PO SCH ×2 (08:15→17:31)
[2022-08-30] MEDS: Aspirin Chewable 81 MG TAB PO SCH (08:15)
[2022-08-30] MEDS: NIFEdipine XL 30 MG TAB PO SCH (08:16)
[2022-08-30] MEDS: metFORMIN 500 MG TAB PO SCH (08:17)
[2022-08-30] MEDS: Ferrous Sulfate 325 MG TAB PO SCH (08:17)
[2022-08-30] MEDS: Pioglitazone HCl 15 MG TAB PO SCH (08:18)
[2022-08-30] MEDS: Furosemide 40 MG TAB PO SCH (08:18)
[2022-08-30] MEDS: Lisinopril 20 MG TAB PO SCH (08:18)
[2022-08-30] MEDS: Atorvastatin Calcium 20 MG TAB PO SCH (21:06)
[2022-08-31] MEDS: Levothyroxine Sodium 25 MCG TAB PO SCH (05:35)
[2022-08-31 06:21] LABS: Anion Gap 17 mmol/L (10-20); BUN (Urea Nitrogen) 107 mg/dL (9.8-20.1); Calc. Creatinine Clearance 33 mL/min (70-130); Calcium 8.9 mg/dL (7.8-10.44); Carbon Dioxide 35 mmol/L (23-31); Chloride 94 mmol/L (98-107); Estimated GFR 29; Glucose 137 mg/dL (83-110); Potassium 3.8 mmol/L (3.5-5.1); Sodium 142 mmol/L (136-145)
[2022-08-31] MEDS: Furosemide 40 MG TAB PO SCH (08:12)
[2022-08-31] MEDS: metFORMIN 500 MG TAB PO SCH (08:12)
[2022-08-31] MEDS: Aspirin Chewable 81 MG TAB PO SCH (08:12)
[2022-08-31] MEDS: Pioglitazone HCl 15 MG TAB PO SCH (08:12)
[2022-08-31] MEDS: Ferrous Sulfate 325 MG TAB PO SCH (08:13)
[2022-08-31] MEDS: Metolazone 5 MG TAB PO SCH (08:13)
[2022-08-31] MEDS: Carvedilol 6.25 MG TAB PO SCH ×2 (08:19→17:33)
[2022-08-31] MEDS: Lisinopril 20 MG TAB PO SCH (08:19)
[2022-08-31] MEDS: NIFEdipine XL 30 MG TAB PO SCH (08:20)
[2022-08-31] MEDS: Atorvastatin Calcium 20 MG TAB PO SCH (20:46)
[2022-09-01] MEDS: Acetaminophen 325 MG TAB PO PRN (04:03)
[2022-09-01] MEDS: Levothyroxine Sodium 25 MCG TAB PO SCH (05:08)
[2022-09-01 06:00] LABS: Hemoglobin 7.6 g/dL (12.0-16.0); Platelet Count 133 10x3/uL (130-400)
[2022-09-01] MEDS: Ferrous Sulfate 325 MG TAB PO SCH (08:48)
[2022-09-01] MEDS: metFORMIN 500 MG TAB PO SCH (08:48)
[2022-09-01] MEDS: Aspirin Chewable 81 MG TAB PO SCH (08:48)
[2022-09-01] MEDS: Lisinopril 20 MG TAB PO SCH (08:48)
[2022-09-01] MEDS: Carvedilol 6.25 MG TAB PO SCH ×2 (08:49→16:24)
[2022-09-01] MEDS: Furosemide 40 MG TAB PO SCH (08:49)
[2022-09-01] MEDS: NIFEdipine XL 30 MG TAB PO SCH (08:49)
[2022-09-01] MEDS: Pioglitazone HCl 15 MG TAB PO SCH (08:50)
[2022-09-01] MEDS: Metolazone 5 MG TAB PO SCH (08:50)
[2022-09-01] MEDS ORDERED: Cyclobenzaprine 10 MG TAB PO PRN (20:22)
[2022-09-01] MEDS ORDERED: Acetaminophen 500 MG TAB PO PRN (20:22)
[2022-09-01] MEDS: Atorvastatin Calcium 20 MG TAB PO SCH (20:45)
[2022-09-02] MEDS: Levothyroxine Sodium 25 MCG TAB PO SCH (05:30)
[2022-09-02] MEDS: metFORMIN 500 MG TAB PO SCH (07:55)
[2022-09-02] MEDS: Ferrous Sulfate 325 MG TAB PO SCH (07:55)
[2022-09-02] MEDS: Pioglitazone HCl 15 MG TAB PO SCH (07:55)
[2022-09-02] MEDS: Metolazone 5 MG TAB PO SCH (07:56)
[2022-09-02] MEDS: Furosemide 40 MG TAB PO SCH (07:56)
[2022-09-02] MEDS: Aspirin Chewable 81 MG TAB PO SCH (07:56)
[2022-09-02] MEDS: Carvedilol 6.25 MG TAB PO SCH ×2 (07:57→17:53)
[2022-09-02] MEDS: NIFEdipine XL 30 MG TAB PO SCH (07:58)
[2022-09-02] MEDS: Lisinopril 20 MG TAB PO SCH (07:58)
[2022-09-02] MEDS: Atorvastatin Calcium 20 MG TAB PO SCH (20:28)
[2022-09-03 02:24] VITALS: BMI 35.2
[2022-09-03] MEDS: Levothyroxine Sodium 25 MCG TAB PO SCH (05:31)
[2022-09-03] MEDS: Pioglitazone HCl 15 MG TAB PO SCH (08:05)
[2022-09-03] MEDS: metFORMIN 500 MG TAB PO SCH (08:05)
[2022-09-03] MEDS: Aspirin Chewable 81 MG TAB PO SCH (08:05)
[2022-09-03] MEDS: Lisinopril 20 MG TAB PO SCH (08:05)
[2022-09-03] MEDS: Carvedilol 6.25 MG TAB PO SCH ×2 (08:05→16:31)
[2022-09-03] MEDS: NIFEdipine XL 30 MG TAB PO SCH (08:05)
[2022-09-03] MEDS: Ferrous Sulfate 325 MG TAB PO SCH (08:05)
[2022-09-03] MEDS: Furosemide 40 MG TAB PO SCH (08:05)
[2022-09-03] MEDS: Metolazone 5 MG TAB PO SCH (08:05)
[2022-09-03] MEDS: Atorvastatin Calcium 20 MG TAB PO SCH (20:28)
[2022-09-03] MEDS ORDERED: Famotidine 20 MG TAB PO SCH (21:00)
[2022-09-04] MEDS: Levothyroxine Sodium 25 MCG TAB PO SCH (05:11)
[2022-09-04 07:05] LABS: Anion Gap 15 mmol/L (10-20); BUN (Urea Nitrogen) 124 mg/dL (9.8-20.1); Calc. Creatinine Clearance 25 mL/min (70-130); Calcium 9.1 mg/dL (7.8-10.44); Carbon Dioxide 30 mmol/L (23-31); Chloride 96 mmol/L (98-107); Estimated GFR 21; Glucose 130 mg/dL (83-110); Potassium 4.1 mmol/L (3.5-5.1); Sodium 137 mmol/L (136-145)
[2022-09-04] MEDS: Lisinopril 20 MG TAB PO SCH (08:13)
[2022-09-04] MEDS: NIFEdipine XL 30 MG TAB PO SCH (08:13)
[2022-09-04] MEDS: Aspirin Chewable 81 MG TAB PO SCH (08:13)
[2022-09-04] MEDS: Ferrous Sulfate 325 MG TAB PO SCH (08:13)
[2022-09-04] MEDS: metFORMIN 500 MG TAB PO SCH (08:13)
[2022-09-04] MEDS: Pioglitazone HCl 15 MG TAB PO SCH (08:13)
[2022-09-04] MEDS: Carvedilol 6.25 MG TAB PO SCH (08:13)
[2022-09-04] MEDS: Metolazone 5 MG TAB PO SCH (09:00)
[2022-09-04 09:43] VITALS: BP 98/61
[2022-09-04 10:13] LABS: Hemoglobin 7.6 g/dL (12.0-16.0); Mean Corpuscular HGB CONC 30.6 g/dL (32.0-36.0); Mean Corpuscular Hemoglobin 26.8 pg (27.0-31.0); Mean Corpuscular Volume 87.5 fl (78.0-98.0); Mean Platelet Volume 7.4 fL (7.4-10.4); Platelet Count 148 10x3/uL (130-400); Red Blood Cell (RBC) Count 2.82 mill/uL (4.20-5.40); White Blood Cell (WBC) Count 4.3 10x3/uL (4.8-10.8)
[2022-09-04 10:17] VITALS: TEMP 97.7
== END 2022-09-04 10:55 | disposition short-term general hospital (02) | DRG 291 ==
LOC: NAV ACUTE 11:35
PROVIDERS: ADMIT Family Medicine; ATTEND Family Medicine
DX: I13.0 Hypertensive heart and chronic kidney disease with heart failure and stage 1 through stage 4 chronic kidney disease, or unspecified chronic kidney disease (principal); I50.23 Acute on chronic systolic (congestive) heart failure; N18.4 Chronic kidney disease, stage 4 (severe); R53.1 Weakness; E78.5 Hyperlipidemia, unspecified; E03.9 Hypothyroidism, unspecified; D50.9 Iron deficiency anemia, unspecified; I25.10 Atherosclerotic heart disease of native coronary artery without angina pectoris; E11.51 Type 2 diabetes mellitus with diabetic peripheral angiopathy without gangrene; E11.22 Type 2 diabetes mellitus with diabetic chronic kidney disease; D63.1 Anemia in chronic kidney disease; I50.812 Chronic right heart failure; Z95.5 Presence of coronary angioplasty implant and graft; Z90.49 Acquired absence of other specified parts of digestive tract; Z90.89 Acquired absence of other organs; Z98.49 Cataract extraction status, unspecified eye; Z90.710 Acquired absence of both cervix and uterus; Z79.82 Long term (current) use of aspirin; Z79.899 Other long term (current) drug therapy; Z79.890 Hormone replacement therapy; Z79.84 Long term (current) use of oral hypoglycemic drugs; Z98.51 Tubal ligation status; Z82.49 Family history of ischemic heart disease and other diseases of the circulatory system
CPT/HCPCS: 36415; 36416; 71045; 80048; 80053; 82565; 83880; 84484; 85014; 85018; 85025; 85027; 85049; J1650; J1815; J1940

== ENCOUNTER 2022-09-07 13:17 | Inpatient (IN) | payer MEDICARE ==
[2022-09-07] MEDS ORDERED: HumaLOG 300 UNITS/3 ML VIAL SC PRN (20:30)
[2022-09-07] MEDS: HumaLOG 300 UNITS/3 ML VIAL SC PRN (21:12)
[2022-09-07] MEDS ORDERED: Dextrose 50% Abboject 50 ML SYRINGE SLOW IVP PRN (21:27)
[2022-09-07] MEDS ORDERED: Dextrose 5% in Water 1,000 ML IV PRN (21:30)
[2022-09-07] MEDS ORDERED: Atorvastatin Calcium 20 MG TAB PO SCH (22:00)
[2022-09-08] MEDS: Levothyroxine Sodium 25 MCG TAB PO SCH (05:41)
[2022-09-08 06:04] LABS: #Eosinphils 0.1 thou/uL (0.0-0.7); #Lymphocytes 1.3 thou/uL (1.20-3.40); #Monocytes 0.4 thou/uL (0.11-0.59); #Neutrophils 2.6 thou/uL (1.40-6.50); %Basophils 0.9 % (0.0-1.0); %Eosinophils 1.7 % (0.0-10.0); %Lymphocytes 28.5 % (21.0-51.0); %Neutrophils 58.8 % (42.0-75.0); Hemoglobin 8.5 g/dL (12.0-16.0); Mean Corpuscular HGB CONC 29.8 g/dL (32.0-36.0); Mean Corpuscular Hemoglobin 26.9 pg (27.0-31.0); Mean Platelet Volume 7.5 fL (7.4-10.4); Platelet Count 164 10x3/uL (130-400); RBC Distribution Width 18.2 % (11.5-14.5); Red Blood Cell (RBC) Count 3.16 mill/uL (4.20-5.40); White Blood Cell (WBC) Count 4.4 10x3/uL (4.8-10.8)
[2022-09-08 06:21] LABS: Anion Gap 15 mmol/L (10-20); BUN (Urea Nitrogen) 70 mg/dL (9.8-20.1); Calc. Creatinine Clearance 47 mL/min (70-130); Calcium 9.3 mg/dL (7.8-10.44); Carbon Dioxide 27 mmol/L (23-31); Chloride 103 mmol/L (98-107); Estimated GFR 42; Glucose 122 mg/dL (83-110); Potassium 4.6 mmol/L (3.5-5.1); Sodium 140 mmol/L (136-145)
[2022-09-08] MEDS ORDERED: Acetaminophen 325 MG TAB PO PRN (08:02)
[2022-09-08] MEDS ORDERED: Dextrose 50% Abboject 50 ML SYRINGE SLOW IVP PRN (08:02)
[2022-09-08] MEDS ORDERED: Calcium Carbonate 500 MG ChewTAB PO PRN (08:02)
[2022-09-08] MEDS ORDERED: Senokot S 8.6-50 MG TAB PO PRN (08:02)
[2022-09-08] MEDS ORDERED: Bisacodyl 10 MG SUPP PR PRN (08:02)
[2022-09-08] MEDS ORDERED: Bisacodyl 5 MG TAB PO PRN (08:02)
[2022-09-08] MEDS ORDERED: Acetaminophen 650 MG Suppository PR PRN (08:02)
[2022-09-08] MEDS ORDERED: Benzonatate 100 MG CAP PO PRN (08:04)
[2022-09-08] MEDS ORDERED: Cepastat Lozenges 1 LOZ PO PRN (08:04)
[2022-09-08] MEDS ORDERED: Artificial Tear Sol 15 ML BOT EA EYE PRN (08:04)
[2022-09-08] MEDS ORDERED: Sodium Chloride 0.65% Nasal 44 ML BOT EA NARE PRN (08:04)
[2022-09-08] MEDS: CO Q-10 CAPSULE 50 MG PO SCH (08:15)
[2022-09-08] MEDS: Carvedilol 6.25 MG TAB PO SCH ×2 (08:16→17:06)
[2022-09-08] MEDS: metFORMIN 500 MG TAB PO SCH (08:16)
[2022-09-08] MEDS: Metolazone 5 MG TAB PO SCH (08:16)
[2022-09-08] MEDS: Ferrous Sulfate 325 MG TAB PO SCH (08:17)
[2022-09-08] MEDS: Aspirin Chewable 81 MG TAB PO SCH (08:22)
[2022-09-08] MEDS: NIFEdipine XL 30 MG TAB PO SCH (08:23)
[2022-09-08] MEDS: Pioglitazone HCl 15 MG TAB PO SCH (08:24)
[2022-09-08] MEDS: Furosemide 20 MG TAB PO SCH (08:24)
[2022-09-08] MEDS ORDERED: Lisinopril 20 MG TAB PO SCH (09:00)
[2022-09-08] MEDS ORDERED: Furosemide 40 MG TAB PO SCH (09:00)
[2022-09-08] MEDS: Atorvastatin Calcium 20 MG TAB PO SCH (21:19)
[2022-09-09 06:01] LABS: #Eosinphils 0.1 thou/uL (0.0-0.7); #Lymphocytes 1.2 thou/uL (1.20-3.40); #Monocytes 0.5 thou/uL (0.11-0.59); #Neutrophils 2.2 thou/uL (1.40-6.50); %Basophils 1.1 % (0.0-1.0); %Eosinophils 1.9 % (0.0-10.0); %Lymphocytes 29.7 % (21.0-51.0); %Monocytes 11.5 % (0.0-10.0); %Neutrophils 55.8 % (42.0-75.0); Hemoglobin 8.3 g/dL (12.0-16.0); Mean Corpuscular HGB CONC 31.8 g/dL (32.0-36.0); Mean Corpuscular Hemoglobin 28.4 pg (27.0-31.0); Mean Corpuscular Volume 89.4 fl (78.0-98.0); Mean Platelet Volume 7.9 fL (7.4-10.4); Platelet Count 169 10x3/uL (130-400); Red Blood Cell (RBC) Count 2.91 mill/uL (4.20-5.40); White Blood Cell (WBC) Count 3.9 10x3/uL (4.8-10.8)
[2022-09-09] MEDS: Levothyroxine Sodium 25 MCG TAB PO SCH (06:05)
[2022-09-09 06:13] LABS: Anion Gap 14 mmol/L (10-20); BUN (Urea Nitrogen) 68 mg/dL (9.8-20.1); Calc. Creatinine Clearance 46 mL/min (70-130); Calcium 8.9 mg/dL (7.8-10.44); Carbon Dioxide 28 mmol/L (23-31); Chloride 101 mmol/L (98-107); Estimated GFR 42; Glucose 115 mg/dL (83-110); Potassium 4.3 mmol/L (3.5-5.1); Sodium 139 mmol/L (136-145)
[2022-09-09] MEDS: CO Q-10 CAPSULE 50 MG PO SCH (08:03)
[2022-09-09] MEDS: Metolazone 5 MG TAB PO SCH (08:03)
[2022-09-09] MEDS: Carvedilol 6.25 MG TAB PO SCH ×2 (08:04→16:58)
[2022-09-09] MEDS: Pioglitazone HCl 15 MG TAB PO SCH (08:04)
[2022-09-09] MEDS: NIFEdipine XL 30 MG TAB PO SCH (08:04)
[2022-09-09] MEDS: Ferrous Sulfate 325 MG TAB PO SCH (08:04)
[2022-09-09] MEDS: metFORMIN 500 MG TAB PO SCH (08:04)
[2022-09-09] MEDS: Furosemide 20 MG TAB PO SCH (08:05)
[2022-09-09] MEDS: Aspirin Chewable 81 MG TAB PO SCH (08:05)
[2022-09-09] MEDS: Atorvastatin Calcium 20 MG TAB PO SCH (20:38)
[2022-09-10 05:56] LABS: #Eosinphils 0.1 thou/uL (0.0-0.7); #Monocytes 0.5 thou/uL (0.11-0.59); #Neutrophils 2.5 thou/uL (1.40-6.50); %Basophils 0.9 % (0.0-1.0); %Eosinophils 1.5 % (0.0-10.0); %Monocytes 11.3 % (0.0-10.0); %Neutrophils 62.3 % (42.0-75.0); Hemoglobin 8.4 g/dL (12.0-16.0); Mean Corpuscular Hemoglobin 27.4 pg (27.0-31.0); Mean Corpuscular Volume 88.5 fl (78.0-98.0); Mean Platelet Volume 8.1 fL (7.4-10.4); Platelet Count 179 10x3/uL (130-400); RBC Distribution Width 17.9 % (11.5-14.5); Red Blood Cell (RBC) Count 3.05 mill/uL (4.20-5.40); White Blood Cell (WBC) Count 4.1 10x3/uL (4.8-10.8)
[2022-09-10 06:08] LABS: Anion Gap 14 mmol/L (10-20); BUN (Urea Nitrogen) 60 mg/dL (9.8-20.1); Calc. Creatinine Clearance 47 mL/min (70-130); Carbon Dioxide 28 mmol/L (23-31); Chloride 100 mmol/L (98-107); Estimated GFR 43; Glucose 107 mg/dL (83-110); Potassium 4.1 mmol/L (3.5-5.1); Sodium 138 mmol/L (136-145)
[2022-09-10] MEDS: Levothyroxine Sodium 25 MCG TAB PO SCH (06:24)
[2022-09-10] MEDS: NIFEdipine XL 30 MG TAB PO SCH (08:08)
[2022-09-10] MEDS: Aspirin Chewable 81 MG TAB PO SCH (08:08)
[2022-09-10] MEDS: CO Q-10 CAPSULE 50 MG PO SCH (08:08)
[2022-09-10] MEDS: Furosemide 20 MG TAB PO SCH (08:08)
[2022-09-10] MEDS: Ferrous Sulfate 325 MG TAB PO SCH (08:08)
[2022-09-10] MEDS: metFORMIN 500 MG TAB PO SCH (08:09)
[2022-09-10] MEDS: Carvedilol 6.25 MG TAB PO SCH ×2 (08:09→16:24)
[2022-09-10] MEDS: Metolazone 5 MG TAB PO SCH (08:09)
[2022-09-10] MEDS: Pioglitazone HCl 15 MG TAB PO SCH (08:09)
[2022-09-10] MEDS: Atorvastatin Calcium 20 MG TAB PO SCH (20:26)
[2022-09-10] MEDS: HumaLOG 300 UNITS/3 ML VIAL SC PRN (20:29)
[2022-09-11] MEDS: Levothyroxine Sodium 25 MCG TAB PO SCH (06:28)
[2022-09-11] MEDS: Ferrous Sulfate 325 MG TAB PO SCH (08:07)
[2022-09-11] MEDS: NIFEdipine XL 30 MG TAB PO SCH (08:07)
[2022-09-11] MEDS: Metolazone 5 MG TAB PO SCH (08:07)
[2022-09-11] MEDS: CO Q-10 CAPSULE 50 MG PO SCH (08:07)
[2022-09-11] MEDS: metFORMIN 500 MG TAB PO SCH (08:07)
[2022-09-11] MEDS: Pioglitazone HCl 15 MG TAB PO SCH (08:08)
[2022-09-11] MEDS: Furosemide 20 MG TAB PO SCH (08:08)
[2022-09-11] MEDS: Carvedilol 6.25 MG TAB PO SCH ×2 (08:08→16:12)
[2022-09-11] MEDS: Aspirin Chewable 81 MG TAB PO SCH (08:08)
[2022-09-11] MEDS: Polyethylene Glycol 3350 17 GM Packet PO PRN (11:14)
[2022-09-11] MEDS: HumaLOG 300 UNITS/3 ML VIAL SC PRN (20:44)
[2022-09-11] MEDS: Atorvastatin Calcium 20 MG TAB PO SCH (20:45)
[2022-09-12 05:27] LABS: #Lymphocytes 1.2 thou/uL (1.20-3.40); #Monocytes 0.5 thou/uL (0.11-0.59); #Neutrophils 2.7 thou/uL (1.40-6.50); %Basophils 1.1 % (0.0-1.0); %Monocytes 10.4 % (0.0-10.0); %Neutrophils 60.4 % (42.0-75.0); Hemoglobin 8.1 g/dL (12.0-16.0); Mean Corpuscular HGB CONC 30.3 g/dL (32.0-36.0); Mean Corpuscular Hemoglobin 27.5 pg (27.0-31.0); Mean Corpuscular Volume 90.7 fl (78.0-98.0); Mean Platelet Volume 7.1 fL (7.4-10.4); Platelet Count 201 10x3/uL (130-400); RBC Distribution Width 18.4 % (11.5-14.5); Red Blood Cell (RBC) Count 2.97 mill/uL (4.20-5.40); White Blood Cell (WBC) Count 4.4 10x3/uL (4.8-10.8)
[2022-09-12 05:38] LABS: Anion Gap 15 mmol/L (10-20); BUN (Urea Nitrogen) 62 mg/dL (9.8-20.1); Calc. Creatinine Clearance 43 mL/min (70-130); Calcium 9.2 mg/dL (7.8-10.44); Carbon Dioxide 27 mmol/L (23-31); Chloride 101 mmol/L (98-107); Estimated GFR 37; Glucose 105 mg/dL (83-110); Potassium 4.3 mmol/L (3.5-5.1); Sodium 139 mmol/L (136-145)
[2022-09-12] MEDS: Levothyroxine Sodium 25 MCG TAB PO SCH (07:29)
[2022-09-12] MEDS: metFORMIN 500 MG TAB PO SCH (07:55)
[2022-09-12] MEDS: NIFEdipine XL 30 MG TAB PO SCH (07:56)
[2022-09-12] MEDS: CO Q-10 CAPSULE 50 MG PO SCH (07:56)
[2022-09-12] MEDS: Furosemide 20 MG TAB PO SCH (07:57)
[2022-09-12] MEDS: Aspirin Chewable 81 MG TAB PO SCH (07:57)
[2022-09-12] MEDS: Ferrous Sulfate 325 MG TAB PO SCH (07:57)
[2022-09-12] MEDS: Metolazone 5 MG TAB PO SCH (07:58)
[2022-09-12] MEDS: Carvedilol 6.25 MG TAB PO SCH ×2 (07:58→17:13)
[2022-09-12] MEDS: Pioglitazone HCl 15 MG TAB PO SCH (08:52)
[2022-09-12] MEDS: Atorvastatin Calcium 20 MG TAB PO SCH (20:25)
[2022-09-13] MEDS: Levothyroxine Sodium 25 MCG TAB PO SCH (05:31)
[2022-09-13] MEDS: Carvedilol 6.25 MG TAB PO SCH ×2 (07:52→17:28)
[2022-09-13] MEDS: CO Q-10 CAPSULE 50 MG PO SCH (07:53)
[2022-09-13] MEDS: Pioglitazone HCl 15 MG TAB PO SCH (07:53)
[2022-09-13] MEDS: NIFEdipine XL 30 MG TAB PO SCH (07:53)
[2022-09-13] MEDS: metFORMIN 500 MG TAB PO SCH (07:54)
[2022-09-13] MEDS: Metolazone 5 MG TAB PO SCH (07:54)
[2022-09-13] MEDS: Ferrous Sulfate 325 MG TAB PO SCH (07:54)
[2022-09-13] MEDS: Furosemide 20 MG TAB PO SCH (07:54)
[2022-09-13] MEDS: Aspirin Chewable 81 MG TAB PO SCH (07:54)
[2022-09-13] MEDS: Atorvastatin Calcium 20 MG TAB PO SCH (20:43)
[2022-09-14] MEDS: Levothyroxine Sodium 25 MCG TAB PO SCH (05:32)
[2022-09-14] MEDS: NIFEdipine XL 30 MG TAB PO SCH (08:04)
[2022-09-14] MEDS: Aspirin Chewable 81 MG TAB PO SCH (08:05)
[2022-09-14] MEDS: Pioglitazone HCl 15 MG TAB PO SCH (08:05)
[2022-09-14] MEDS: Ferrous Sulfate 325 MG TAB PO SCH (08:05)
[2022-09-14] MEDS: Furosemide 20 MG TAB PO SCH (08:05)
[2022-09-14] MEDS: metFORMIN 500 MG TAB PO SCH (08:05)
[2022-09-14] MEDS: CO Q-10 CAPSULE 50 MG PO SCH (08:06)
[2022-09-14] MEDS: Metolazone 5 MG TAB PO SCH (08:06)
[2022-09-14] MEDS: Carvedilol 6.25 MG TAB PO SCH ×2 (08:07→17:21)
[2022-09-14] MEDS: Polyethylene Glycol 3350 17 GM Packet PO PRN (20:06)
[2022-09-14] MEDS: Atorvastatin Calcium 20 MG TAB PO SCH (20:06)
[2022-09-15] MEDS: Levothyroxine Sodium 25 MCG TAB PO SCH (05:33)
[2022-09-15 06:03] LABS: Hemoglobin 8.1 g/dL (12.0-16.0); Red Blood Cell (RBC) Count 2.96 mill/uL (4.20-5.40); White Blood Cell (WBC) Count 4.6 10x3/uL (4.8-10.8)
[2022-09-15 06:04] LABS: #Lymphocytes 1.2 thou/uL (1.20-3.40); #Monocytes 0.5 thou/uL (0.11-0.59); #Neutrophils 2.8 thou/uL (1.40-6.50); %Lymphocytes 25.7 % (21.0-51.0); %Monocytes 11.1 % (0.0-10.0); %Neutrophils 61.2 % (42.0-75.0); Manual Diff?? NO; Mean Corpuscular HGB CONC 30.3 g/dL (32.0-36.0); Mean Corpuscular Hemoglobin 27.3 pg (27.0-31.0); Mean Corpuscular Volume 89.8 fl (78.0-98.0); Mean Platelet Volume 7.4 fL (7.4-10.4); Platelet Count 176 10x3/uL (130-400); RBC Distribution Width 18.2 % (11.5-14.5)
[2022-09-15 06:17] LABS: Anion Gap 15 mmol/L (10-20); BUN (Urea Nitrogen) 55 mg/dL (9.8-20.1); Calc. Creatinine Clearance 39 mL/min (70-130); Carbon Dioxide 27 mmol/L (23-31); Chloride 101 mmol/L (98-107); Estimated GFR 36; Glucose 106 mg/dL (83-110); Potassium 4.1 mmol/L (3.5-5.1); Sodium 139 mmol/L (136-145)
[2022-09-15] MEDS: CO Q-10 CAPSULE 50 MG PO SCH (08:09)
[2022-09-15] MEDS: Pioglitazone HCl 15 MG TAB PO SCH (08:10)
[2022-09-15] MEDS: NIFEdipine XL 30 MG TAB PO SCH (08:10)
[2022-09-15] MEDS: metFORMIN 500 MG TAB PO SCH (08:11)
[2022-09-15] MEDS: Ferrous Sulfate 325 MG TAB PO SCH (08:11)
[2022-09-15] MEDS: Metolazone 5 MG TAB PO SCH (08:11)
[2022-09-15] MEDS: Furosemide 20 MG TAB PO SCH (08:11)
[2022-09-15] MEDS: Aspirin Chewable 81 MG TAB PO SCH (08:11)
[2022-09-15] MEDS: Carvedilol 6.25 MG TAB PO SCH ×2 (08:11→18:10)
[2022-09-15 11:29] VITALS: BMI 33.8
[2022-09-15] MEDS: Atorvastatin Calcium 20 MG TAB PO SCH (20:35)
[2022-09-16] MEDS: Levothyroxine Sodium 25 MCG TAB PO SCH (05:36)
[2022-09-16] MEDS: Aspirin Chewable 81 MG TAB PO SCH (08:49)
[2022-09-16] MEDS: metFORMIN 500 MG TAB PO SCH (08:49)
[2022-09-16] MEDS: Ferrous Sulfate 325 MG TAB PO SCH (08:49)
[2022-09-16] MEDS: CO Q-10 CAPSULE 50 MG PO SCH (08:50)
[2022-09-16] MEDS: Pioglitazone HCl 15 MG TAB PO SCH (08:50)
[2022-09-16] MEDS: Furosemide 20 MG TAB PO SCH (08:51)
[2022-09-16] MEDS: Metolazone 5 MG TAB PO SCH (08:51)
[2022-09-16] MEDS: NIFEdipine XL 30 MG TAB PO SCH (08:52)
[2022-09-16] MEDS: Carvedilol 6.25 MG TAB PO SCH (08:52)
[2022-09-16 08:54] VITALS: BP 147/63
[2022-09-16 09:03] VITALS: TEMP 98.1
[2022-09-16] MEDS: Polyethylene Glycol 3350 17 GM Packet PO PRN (10:07)
== END 2022-09-16 14:45 | disposition home health service (06) | DRG 948 ==
LOC: NAV ACUTE 17:24
PROVIDERS: ADMIT Family Medicine; ATTEND Family Medicine
DX: R53.1 Weakness (principal); I50.32 Chronic diastolic (congestive) heart failure; I13.0 Hypertensive heart and chronic kidney disease with heart failure and stage 1 through stage 4 chronic kidney disease, or unspecified chronic kidney disease; E78.5 Hyperlipidemia, unspecified; E03.9 Hypothyroidism, unspecified; D50.9 Iron deficiency anemia, unspecified; Z66 Do not resuscitate; I25.10 Atherosclerotic heart disease of native coronary artery without angina pectoris; F41.9 Anxiety disorder, unspecified; F32.A Depression, unspecified; E11.51 Type 2 diabetes mellitus with diabetic peripheral angiopathy without gangrene; E11.22 Type 2 diabetes mellitus with diabetic chronic kidney disease; N18.9 Chronic kidney disease, unspecified; I50.812 Chronic right heart failure; Z95.5 Presence of coronary angioplasty implant and graft; Z90.49 Acquired absence of other specified parts of digestive tract; Z79.82 Long term (current) use of aspirin; Z79.890 Hormone replacement therapy; Z79.84 Long term (current) use of oral hypoglycemic drugs; Z79.899 Other long term (current) drug therapy; Z90.89 Acquired absence of other organs; Z98.49 Cataract extraction status, unspecified eye; Z90.710 Acquired absence of both cervix and uterus; Z98.51 Tubal ligation status; Z82.49 Family history of ischemic heart disease and other diseases of the circulatory system
CPT/HCPCS: 36415; 36416; 71045; 80048; 83880; 85025; J1815

== ENCOUNTER 2023-01-19 16:14 | Inpatient (IN) | payer MEDICARE ==
[2023-01-19] MEDS ORDERED: Dextrose 50% Abboject 50 ML SYRINGE SLOW IVP PRN (21:10)
[2023-01-19] MEDS ORDERED: Sodium Chloride 0.65% Nasal 44 ML BOT EA NARE PRN (21:10)
[2023-01-19] MEDS ORDERED: Calcium Carbonate 500 MG ChewTAB PO PRN (21:10)
[2023-01-19] MEDS ORDERED: Glucagon 1 MG/ML KIT IM PRN (21:10)
[2023-01-19] MEDS ORDERED: Guaifenesin DM 100-10/5 ML UDCUP PO PRN (21:10)
[2023-01-19] MEDS ORDERED: Benzocaine/Menthol 1 LOZ LOZ PO PRN (21:10)
[2023-01-19] MEDS ORDERED: HumaLOG 300 UNITS/3 ML VIAL SC PRN (21:10)
[2023-01-19] MEDS ORDERED: Senokot S 8.6-50 MG TAB PO PRN (21:10)
[2023-01-19] MEDS ORDERED: Acetaminophen 650 MG Suppository PR PRN (21:10)
[2023-01-19] MEDS ORDERED: Benzonatate 100 MG CAP PO PRN (21:10)
[2023-01-19] MEDS ORDERED: HYDROcodone/Acetaminophen 5/325 mg Tablet PO PRN (22:06)
[2023-01-19] MEDS: oxyCODONE 5 MG TAB PO PRN (22:16)
[2023-01-19] MEDS: Melatonin 3 MG TAB PO PRN (23:43)
[2023-01-19] MEDS: Acetaminophen 325 MG TAB PO PRN (23:44)
[2023-01-19] MEDS: Cyclobenzaprine 10 MG TAB PO PRN (23:44)
[2023-01-19] MEDS: Ondansetron ODT 4 MG TAB PO PRN (23:58)
[2023-01-20 05:34] LABS: #Basophils 0.1 thou/uL (0.0-0.2); #Lymphocytes 1.2 thou/uL (1.20-3.40); #Monocytes 0.7 thou/uL (0.11-0.59); #Neutrophils 5.9 thou/uL (1.40-6.50); %Basophils 1.2 % (0.0-1.0); %Eosinophils 0.2 % (0.0-10.0); %Lymphocytes 14.8 % (21.0-51.0); %Monocytes 8.3 % (0.0-10.0); %Neutrophils 75.5 % (42.0-75.0); Hematocrit 33.1 % (36.0-47.0); Hemoglobin 10.6 g/dL (12.0-16.0); Manual Diff?? NO; Mean Corpuscular Hemoglobin 27.8 pg (27.0-31.0); Mean Corpuscular Volume 86.8 fl (78.0-98.0); Mean Platelet Volume 7.1 fL (7.4-10.4); Platelet Count 300 10x3/uL (130-400); RBC Distribution Width 16.9 % (11.5-14.5); Red Blood Cell (RBC) Count 3.81 mill/uL (4.20-5.40); White Blood Cell (WBC) Count 7.8 10x3/uL (4.8-10.8)
[2023-01-20] MEDS: Levothyroxine Sodium 75 MCG TAB PO SCH (05:38)
[2023-01-20] MEDS: HumaLOG 300 UNITS/3 ML VIAL SC PRN ×2 (05:46→11:47)
[2023-01-20] MEDS: oxyCODONE 5 MG TAB PO PRN ×2 (07:54→18:46)
[2023-01-20] MEDS: Heparin 5,000 UNITS/ML VIAL SC SCH ×2 (07:55→21:06)
[2023-01-20] MEDS: cefTRIAXone\\ROCEPHIN 2 GM in Sodium Chloride 0.9% 100 ML IVPB SCH (08:25)
[2023-01-20] MEDS: Ondansetron ODT 4 MG TAB PO PRN (08:26)
[2023-01-20] MEDS ORDERED: oxyCODONE 5 MG TAB PO SCH (08:45)
[2023-01-20] MEDS: Polyethylene Glycol 3350 17 GM Packet PO SCH (08:55)
[2023-01-20] MEDS ORDERED: DAPTOmycin 500 MG in Sodium Chloride 0.9% 50 ML IVPB SCH (09:00)
[2023-01-20] MEDS ORDERED: Famotidine 20 MG TAB PO SCH (09:00)
[2023-01-20 11:10] LABS: ALT (SGPT) 14 U/L (8-55); AST (SGOT) 27 U/L (5-34); Albumin 3.6 g/dL (3.4-4.8); Alkaline Phosphatase 75 U/L (40-110); Anion Gap 16 mmol/L (10-20); BUN (Urea Nitrogen) 44 mg/dL (9.8-20.1); Bilirubin, Total 0.3 mg/dL (0.2-1.2); Calc. Creatinine Clearance 40 mL/min (70-130); Calcium 10.7 mg/dL (7.8-10.44); Carbon Dioxide 33 mmol/L (23-31); Chloride 88 mmol/L (98-107); Estimated GFR 42; Globulin 3.2 g/dL (2.4-3.5); Glucose 165 mg/dL (83-110); Protein, Total 6.8 g/dL (5.8-8.1); Sodium 133 mmol/L (136-145)
[2023-01-20] MEDS: Bisacodyl 5 MG TAB PO PRN (19:18)
[2023-01-20] MEDS: Cyclobenzaprine 10 MG TAB PO PRN (21:07)
[2023-01-20] MEDS: Melatonin 3 MG TAB PO PRN (21:07)
[2023-01-21] MEDS: oxyCODONE 5 MG TAB PO PRN ×3 (00:06→14:38)
[2023-01-21] MEDS: Levothyroxine Sodium 75 MCG TAB PO SCH (05:33)
[2023-01-21] MEDS: HumaLOG 300 UNITS/3 ML VIAL SC PRN ×2 (05:38→12:24)
[2023-01-21 06:31] LABS: #Basophils 0.1 thou/uL (0.0-0.2); #Lymphocytes 1.2 thou/uL (1.20-3.40); #Monocytes 0.6 thou/uL (0.11-0.59); #Neutrophils 5.4 thou/uL (1.40-6.50); %Basophils 1.9 % (0.0-1.0); %Eosinophils 0.2 % (0.0-10.0); %Lymphocytes 15.7 % (21.0-51.0); %Monocytes 8.6 % (0.0-10.0); %Neutrophils 73.5 % (42.0-75.0); Hematocrit 32.6 % (36.0-47.0); Hemoglobin 10.6 g/dL (12.0-16.0); Mean Corpuscular HGB CONC 32.7 g/dL (32.0-36.0); Mean Corpuscular Hemoglobin 28.1 pg (27.0-31.0); Mean Corpuscular Volume 86.1 fl (78.0-98.0); Mean Platelet Volume 7.1 fL (7.4-10.4); Platelet Count 280 10x3/uL (130-400); RBC Distribution Width 16.2 % (11.5-14.5); Red Blood Cell (RBC) Count 3.79 mill/uL (4.20-5.40); White Blood Cell (WBC) Count 7.4 10x3/uL (4.8-10.8)
[2023-01-21 06:42] LABS: Anion Gap 14 mmol/L (10-20); BUN (Urea Nitrogen) 43 mg/dL (9.8-20.1); Calc. Creatinine Clearance 41 mL/min (70-130); Calcium 10.1 mg/dL (7.8-10.44); Carbon Dioxide 32 mmol/L (23-31); Chloride 88 mmol/L (98-107); Estimated GFR 43; Glucose 158 mg/dL (83-110); Potassium 3.9 mmol/L (3.5-5.1); Sodium 130 mmol/L (136-145)
[2023-01-21] MEDS: DAPTOmycin 500 MG in Sodium Chloride 0.9% 50 ML IVPB SCH (08:27)
[2023-01-21] MEDS: Heparin 5,000 UNITS/ML VIAL SC SCH ×2 (08:59→20:35)
[2023-01-21] MEDS ORDERED: DAPTOmycin 500 MG in Sodium Chloride 0.9% 100 ML IVPB SCH (09:00)
[2023-01-21] MEDS: Carvedilol 6.25 MG TAB PO SCH ×2 (09:00→17:04)
[2023-01-21] MEDS: Pioglitazone HCl 15 MG TAB PO SCH (09:28)
[2023-01-21] MEDS: Polyethylene Glycol 3350 17 GM Packet PO SCH (09:28)
[2023-01-21] MEDS: Famotidine 20 MG TAB PO SCH (09:29)
[2023-01-21] MEDS: Bisacodyl 10 MG SUPP PR PRN (09:29)
[2023-01-21] MEDS: cefTRIAXone\\ROCEPHIN 2 GM in Sodium Chloride 0.9% 100 ML IVPB SCH (09:29)
[2023-01-21] MEDS ORDERED: Fleet Saline Enema 133 ML BOT PR PRN (15:24)
[2023-01-21] MEDS: metFORMIN 500 MG TAB PO SCH (17:04)
[2023-01-21] MEDS: cloNIDine 0.1 MG TAB PO PRN (17:06)
[2023-01-21] MEDS: Cyclobenzaprine 10 MG TAB PO PRN (17:11)
[2023-01-22] MEDS: oxyCODONE 5 MG TAB PO PRN ×3 (03:36→19:30)
[2023-01-22] MEDS: Levothyroxine Sodium 75 MCG TAB PO SCH (05:23)
[2023-01-22 06:52] LABS: Anion Gap 13 mmol/L (10-20); BUN (Urea Nitrogen) 36 mg/dL (9.8-20.1); Calc. Creatinine Clearance 43 mL/min (70-130); Calcium 9.6 mg/dL (7.8-10.44); Carbon Dioxide 32 mmol/L (23-31); Chloride 89 mmol/L (98-107); Estimated GFR 46; Glucose 141 mg/dL (83-110); Potassium 3.8 mmol/L (3.5-5.1); Sodium 130 mmol/L (136-145)
[2023-01-22] MEDS: Polyethylene Glycol 3350 17 GM Packet PO SCH (08:41)
[2023-01-22] MEDS: Carvedilol 6.25 MG TAB PO SCH ×2 (08:42→17:04)
[2023-01-22] MEDS: Famotidine 20 MG TAB PO SCH (08:43)
[2023-01-22] MEDS: Pioglitazone HCl 15 MG TAB PO SCH (08:44)
[2023-01-22] MEDS: Heparin 5,000 UNITS/ML VIAL SC SCH ×2 (08:46→20:18)
[2023-01-22] MEDS: cefTRIAXone\\ROCEPHIN 2 GM in Sodium Chloride 0.9% 100 ML IVPB SCH (08:49)
[2023-01-22] MEDS ORDERED: DAPTOmycin 500 MG in Sodium Chloride 0.9% 100 ML IVPB SCH (09:30)
[2023-01-22] MEDS: DAPTOmycin 500 MG in Sodium Chloride 0.9% 50 ML IVPB SCH (10:04)
[2023-01-22] MEDS: metFORMIN 500 MG TAB PO SCH (17:04)
[2023-01-22] MEDS ORDERED: Magnesium Citrate 300 ML BOT PO SCH (17:45)
[2023-01-23] MEDS: Levothyroxine Sodium 75 MCG TAB PO SCH (05:19)
[2023-01-23] MEDS: HumaLOG 300 UNITS/3 ML VIAL SC PRN (05:49)
[2023-01-23] MEDS: oxyCODONE 5 MG TAB PO PRN ×2 (06:34→13:36)
[2023-01-23] MEDS: cefTRIAXone\\ROCEPHIN 2 GM in Sodium Chloride 0.9% 100 ML IVPB SCH (08:47)
[2023-01-23] MEDS: Polyethylene Glycol 3350 17 GM Packet PO SCH (08:54)
[2023-01-23] MEDS: Pioglitazone HCl 15 MG TAB PO SCH (08:54)
[2023-01-23] MEDS: Heparin 5,000 UNITS/ML VIAL SC SCH ×2 (08:55→21:31)
[2023-01-23] MEDS: Carvedilol 6.25 MG TAB PO SCH ×2 (08:55→16:21)
[2023-01-23] MEDS: Famotidine 20 MG TAB PO SCH (08:55)
[2023-01-23] MEDS: DAPTOmycin 500 MG in Sodium Chloride 0.9% 100 ML IVPB SCH (09:47)
[2023-01-23 10:25] LABS: #Basophils 0.1 thou/uL (0.0-0.2); #Lymphocytes 1.2 thou/uL (1.20-3.40); #Monocytes 0.7 thou/uL (0.11-0.59); %Basophils 1.2 % (0.0-1.0); %Eosinophils 0.5 % (0.0-10.0); %Lymphocytes 16.5 % (21.0-51.0); %Monocytes 10.4 % (0.0-10.0); %Neutrophils 71.4 % (42.0-75.0); Anion Gap 16 mmol/L (10-20); BUN (Urea Nitrogen) 34 mg/dL (9.8-20.1); CRP (Inflammatory) 5.91 mg/dL (= or < 0.5); Calc. Creatinine Clearance 47 mL/min (70-130); Carbon Dioxide 31 mmol/L (23-31); Chloride 90 mmol/L (98-107); Estimated GFR 51; Glucose 140 mg/dL (83-110); Hematocrit 30.5 % (36.0-47.0); Hemoglobin 9.5 g/dL (12.0-16.0); Mean Corpuscular HGB CONC 31.1 g/dL (32.0-36.0); Mean Corpuscular Hemoglobin 27.1 pg (27.0-31.0); Mean Corpuscular Volume 87.2 fl (78.0-98.0); Mean Platelet Volume 7.6 fL (7.4-10.4); Platelet Count 302 10x3/uL (130-400); Potassium 3.7 mmol/L (3.5-5.1); RBC Distribution Width 16.3 % (11.5-14.5); Sodium 133 mmol/L (136-145)
[2023-01-23] MEDS: Bisacodyl 5 MG TAB PO PRN (16:18)
[2023-01-23] MEDS: metFORMIN 500 MG TAB PO SCH (16:18)
[2023-01-24] MEDS: Levothyroxine Sodium 75 MCG TAB PO SCH (06:04)
[2023-01-24] MEDS: Polyethylene Glycol 3350 17 GM Packet PO SCH (08:42)
[2023-01-24] MEDS: Senokot S 8.6-50 MG TAB PO SCH (08:43)
[2023-01-24] MEDS: Carvedilol 6.25 MG TAB PO SCH ×2 (08:43→17:04)
[2023-01-24] MEDS: Pioglitazone HCl 15 MG TAB PO SCH (08:44)
[2023-01-24] MEDS: Famotidine 20 MG TAB PO SCH (08:44)
[2023-01-24] MEDS: oxyCODONE 5 MG TAB PO PRN ×3 (08:44→16:44)
[2023-01-24] MEDS: Heparin 5,000 UNITS/ML VIAL SC SCH ×2 (08:45→21:06)
[2023-01-24] MEDS: cefTRIAXone\\ROCEPHIN 2 GM in Sodium Chloride 0.9% 100 ML IVPB SCH (08:46)
[2023-01-24] MEDS: DAPTOmycin 500 MG in Sodium Chloride 0.9% 100 ML IVPB SCH (08:47)
[2023-01-24] MEDS: HumaLOG 300 UNITS/3 ML VIAL SC PRN (12:04)
[2023-01-24] MEDS: Cyclobenzaprine 10 MG TAB PO PRN (16:44)
[2023-01-24] MEDS: metFORMIN 500 MG TAB PO SCH (16:45)
[2023-01-24] MEDS: Melatonin 3 MG TAB PO PRN (21:08)
[2023-01-25] MEDS: Levothyroxine Sodium 75 MCG TAB PO SCH (05:17)
[2023-01-25] MEDS: oxyCODONE 5 MG TAB PO PRN ×2 (06:19→17:41)
[2023-01-25] MEDS ORDERED: oxyCODONE 5 MG TAB PO SCH (08:00)
[2023-01-25] MEDS: Senokot S 8.6-50 MG TAB PO SCH (08:18)
[2023-01-25] MEDS: Pioglitazone HCl 15 MG TAB PO SCH (08:18)
[2023-01-25] MEDS: Carvedilol 6.25 MG TAB PO SCH ×2 (08:18→17:40)
[2023-01-25] MEDS: Polyethylene Glycol 3350 17 GM Packet PO SCH (08:19)
[2023-01-25] MEDS: Famotidine 20 MG TAB PO SCH (08:19)
[2023-01-25] MEDS: Cyclobenzaprine 10 MG TAB PO PRN (08:19)
[2023-01-25] MEDS: Heparin 5,000 UNITS/ML VIAL SC SCH ×2 (08:19→20:09)
[2023-01-25] MEDS: cefTRIAXone\\ROCEPHIN 2 GM in Sodium Chloride 0.9% 100 ML IVPB SCH (10:11)
[2023-01-25] MEDS: DAPTOmycin 500 MG in Sodium Chloride 0.9% 100 ML IVPB SCH (10:12)
[2023-01-25] MEDS: HumaLOG 300 UNITS/3 ML VIAL SC PRN (11:42)
[2023-01-25] MEDS: metFORMIN 500 MG TAB PO SCH (17:40)
[2023-01-25] MEDS: Melatonin 3 MG TAB PO PRN (20:09)
[2023-01-26] MEDS: Levothyroxine Sodium 75 MCG TAB PO SCH (05:06)
[2023-01-26] MEDS: oxyCODONE 5 MG TAB PO PRN ×3 (05:07→17:30)
[2023-01-26] MEDS: HumaLOG 300 UNITS/3 ML VIAL SC PRN ×2 (06:45→12:18)
[2023-01-26] MEDS: Ondansetron ODT 4 MG TAB PO PRN (07:46)
[2023-01-26] MEDS: cefTRIAXone\\ROCEPHIN 2 GM in Sodium Chloride 0.9% 100 ML IVPB SCH (07:47)
[2023-01-26] MEDS: DAPTOmycin 500 MG in Sodium Chloride 0.9% 100 ML IVPB SCH (08:22)
[2023-01-26] MEDS: Senokot S 8.6-50 MG TAB PO SCH (08:57)
[2023-01-26] MEDS: Polyethylene Glycol 3350 17 GM Packet PO SCH (08:57)
[2023-01-26] MEDS: Pioglitazone HCl 15 MG TAB PO SCH (08:57)
[2023-01-26] MEDS: Famotidine 20 MG TAB PO SCH (08:57)
[2023-01-26] MEDS: Heparin 5,000 UNITS/ML VIAL SC SCH ×2 (08:58→20:13)
[2023-01-26] MEDS: Carvedilol 6.25 MG TAB PO SCH ×2 (08:58→17:31)
[2023-01-26] MEDS: Cyclobenzaprine 10 MG TAB PO PRN ×2 (09:00→20:17)
[2023-01-26] MEDS: metFORMIN 500 MG TAB PO SCH (17:32)
[2023-01-26] MEDS: Acetaminophen 325 MG TAB PO PRN (20:16)
[2023-01-27] MEDS: oxyCODONE 5 MG TAB PO PRN ×5 (02:55→21:17)
[2023-01-27 05:33] LABS: #Basophils 0.1 thou/uL (0.0-0.2); #Eosinphils 0.1 thou/uL (0.0-0.7); #Lymphocytes 1.1 thou/uL (1.20-3.40); #Monocytes 0.6 thou/uL (0.11-0.59); #Neutrophils 3.1 thou/uL (1.40-6.50); %Basophils 1.9 % (0.0-1.0); %Eosinophils 1.5 % (0.0-10.0); %Lymphocytes 22.3 % (21.0-51.0); %Monocytes 11.8 % (0.0-10.0); %Neutrophils 62.6 % (42.0-75.0); Hematocrit 28.3 % (36.0-47.0); Mean Corpuscular HGB CONC 31.7 g/dL (32.0-36.0); Mean Corpuscular Hemoglobin 27.2 pg (27.0-31.0); Mean Corpuscular Volume 85.9 fl (78.0-98.0); Mean Platelet Volume 7.2 fL (7.4-10.4); Platelet Count 283 10x3/uL (130-400); RBC Distribution Width 16.3 % (11.5-14.5)
[2023-01-27 05:47] LABS: Anion Gap 14 mmol/L (10-20); BUN (Urea Nitrogen) 30 mg/dL (9.8-20.1); CRP (Inflammatory) 2.67 mg/dL (= or < 0.5); Calc. Creatinine Clearance 43 mL/min (70-130); Carbon Dioxide 29 mmol/L (23-31); Chloride 94 mmol/L (98-107); Estimated GFR 46; Glucose 131 mg/dL (83-110); Sodium 133 mmol/L (136-145)
[2023-01-27] MEDS: Levothyroxine Sodium 75 MCG TAB PO SCH (05:48)
[2023-01-27] MEDS: DAPTOmycin 500 MG in Sodium Chloride 0.9% 100 ML IVPB SCH (08:00)
[2023-01-27] MEDS: Senokot S 8.6-50 MG TAB PO SCH (08:02)
[2023-01-27] MEDS: Polyethylene Glycol 3350 17 GM Packet PO SCH (08:02)
[2023-01-27] MEDS: Carvedilol 6.25 MG TAB PO SCH ×2 (08:03→17:17)
[2023-01-27] MEDS: Famotidine 20 MG TAB PO SCH (08:03)
[2023-01-27] MEDS: Pioglitazone HCl 15 MG TAB PO SCH (08:03)
[2023-01-27] MEDS: cefTRIAXone\\ROCEPHIN 2 GM in Sodium Chloride 0.9% 100 ML IVPB SCH (08:04)
[2023-01-27] MEDS: Heparin 5,000 UNITS/ML VIAL SC SCH ×2 (08:35→21:15)
[2023-01-27] MEDS: HumaLOG 300 UNITS/3 ML VIAL SC PRN (12:13)
[2023-01-27] MEDS: metFORMIN 500 MG TAB PO SCH (17:11)
[2023-01-27] MEDS: Cyclobenzaprine 10 MG TAB PO PRN (17:40)
[2023-01-27] MEDS: Bisacodyl 5 MG TAB PO PRN (21:18)
[2023-01-28] MEDS: Levothyroxine Sodium 75 MCG TAB PO SCH (05:37)
[2023-01-28] MEDS: HumaLOG 300 UNITS/3 ML VIAL SC PRN (05:42)
[2023-01-28] MEDS: oxyCODONE 5 MG TAB PO PRN ×2 (06:03→20:58)
[2023-01-28] MEDS: Carvedilol 6.25 MG TAB PO SCH ×2 (08:00→16:30)
[2023-01-28] MEDS: Pioglitazone HCl 15 MG TAB PO SCH (08:01)
[2023-01-28] MEDS: Famotidine 20 MG TAB PO SCH (08:01)
[2023-01-28] MEDS: cefTRIAXone\\ROCEPHIN 2 GM in Sodium Chloride 0.9% 100 ML IVPB SCH (08:01)
[2023-01-28] MEDS: Senokot S 8.6-50 MG TAB PO SCH (08:01)
[2023-01-28] MEDS: DAPTOmycin 500 MG in Sodium Chloride 0.9% 100 ML IVPB SCH (08:01)
[2023-01-28] MEDS: Heparin 5,000 UNITS/ML VIAL SC SCH ×2 (08:01→20:59)
[2023-01-28] MEDS: Polyethylene Glycol 3350 17 GM Packet PO SCH (08:01)
[2023-01-28] MEDS: metFORMIN 500 MG TAB PO SCH (16:30)
[2023-01-29] MEDS: oxyCODONE 5 MG TAB PO PRN ×3 (05:44→15:00)
[2023-01-29] MEDS: Bisacodyl 10 MG SUPP PR PRN (05:45)
[2023-01-29] MEDS: Levothyroxine Sodium 75 MCG TAB PO SCH (05:45)
[2023-01-29] MEDS: Famotidine 20 MG TAB PO SCH (08:28)
[2023-01-29] MEDS: Pioglitazone HCl 15 MG TAB PO SCH (08:28)
[2023-01-29] MEDS: Carvedilol 6.25 MG TAB PO SCH ×2 (08:28→16:07)
[2023-01-29] MEDS: Polyethylene Glycol 3350 17 GM Packet PO SCH (08:30)
[2023-01-29] MEDS: Heparin 5,000 UNITS/ML VIAL SC SCH ×2 (08:31→21:04)
[2023-01-29] MEDS: DAPTOmycin 500 MG in Sodium Chloride 0.9% 100 ML IVPB SCH (08:32)
[2023-01-29] MEDS: cefTRIAXone\\ROCEPHIN 2 GM in Sodium Chloride 0.9% 100 ML IVPB SCH (08:32)
[2023-01-29] MEDS: Cyclobenzaprine 10 MG TAB PO PRN (11:12)
[2023-01-29] MEDS: metFORMIN 500 MG TAB PO SCH (16:07)
[2023-01-30] MEDS: oxyCODONE 5 MG TAB PO PRN ×3 (05:05→20:30)
[2023-01-30] MEDS: Levothyroxine Sodium 75 MCG TAB PO SCH (05:06)
[2023-01-30 05:55] LABS: #Basophils 0.1 thou/uL (0.0-0.2); #Eosinphils 0.1 thou/uL (0.0-0.7); #Lymphocytes 1.1 thou/uL (1.20-3.40); #Monocytes 0.6 thou/uL (0.11-0.59); #Neutrophils 3.1 thou/uL (1.40-6.50); %Basophils 2.1 % (0.0-1.0); %Eosinophils 1.1 % (0.0-10.0); %Lymphocytes 21.7 % (21.0-51.0); %Monocytes 11.1 % (0.0-10.0); %Neutrophils 63.9 % (42.0-75.0); Hematocrit 29.6 % (36.0-47.0); Hemoglobin 9.2 g/dL (12.0-16.0); Mean Corpuscular HGB CONC 31.2 g/dL (32.0-36.0); Mean Corpuscular Hemoglobin 26.9 pg (27.0-31.0); Platelet Count 328 10x3/uL (130-400); RBC Distribution Width 15.9 % (11.5-14.5); Red Blood Cell (RBC) Count 3.44 mill/uL (4.20-5.40); White Blood Cell (WBC) Count 4.9 10x3/uL (4.8-10.8)
[2023-01-30 06:12] LABS: ALT (SGPT) 12 U/L (8-55); AST (SGOT) 24 U/L (5-34); Albumin 3.4 g/dL (3.4-4.8); Alkaline Phosphatase 106 U/L (40-110); Anion Gap 15 mmol/L (10-20); Bilirubin, Total 0.2 mg/dL (0.2-1.2); CK (CPK) 183 U/L (29-168); CRP (Inflammatory) 1.85 mg/dL (= or < 0.5); Calc. Creatinine Clearance 58 mL/min (70-130); Carbon Dioxide 26 mmol/L (23-31); Chloride 95 mmol/L (98-107); Estimated GFR 61; Globulin 3.4 g/dL (2.4-3.5); Glucose 147 mg/dL (83-110); Potassium 3.9 mmol/L (3.5-5.1); Protein, Total 6.8 g/dL (5.8-8.1); Sodium 132 mmol/L (136-145)
[2023-01-30] MEDS: Heparin 5,000 UNITS/ML VIAL SC SCH ×2 (09:12→20:31)
[2023-01-30] MEDS: DAPTOmycin 500 MG in Sodium Chloride 0.9% 100 ML IVPB SCH (09:12)
[2023-01-30] MEDS: Polyethylene Glycol 3350 17 GM Packet PO SCH (09:13)
[2023-01-30] MEDS: Carvedilol 6.25 MG TAB PO SCH ×2 (09:13→18:10)
[2023-01-30] MEDS: Cyclobenzaprine 10 MG TAB PO PRN ×2 (09:13→20:31)
[2023-01-30] MEDS: cefTRIAXone\\ROCEPHIN 2 GM in Sodium Chloride 0.9% 100 ML IVPB SCH (09:13)
[2023-01-30] MEDS: Pioglitazone HCl 15 MG TAB PO SCH (09:13)
[2023-01-30] MEDS: Famotidine 20 MG TAB PO SCH (09:14)
[2023-01-30 12:43] LABS: BUN (Urea Nitrogen) 27 mg/dL (9.8-20.1)
[2023-01-30] MEDS: metFORMIN 500 MG TAB PO SCH (18:11)
[2023-01-31] MEDS: Levothyroxine Sodium 75 MCG TAB PO SCH (05:39)
[2023-01-31] MEDS: Pioglitazone HCl 15 MG TAB PO SCH (08:34)
[2023-01-31] MEDS: Famotidine 20 MG TAB PO SCH (08:34)
[2023-01-31] MEDS: Polyethylene Glycol 3350 17 GM Packet PO SCH (08:34)
[2023-01-31] MEDS: DAPTOmycin 500 MG in Sodium Chloride 0.9% 100 ML IVPB SCH (08:35)
[2023-01-31] MEDS: Carvedilol 6.25 MG TAB PO SCH ×2 (08:35→17:31)
[2023-01-31] MEDS: Heparin 5,000 UNITS/ML VIAL SC SCH ×2 (08:36→20:41)
[2023-01-31] MEDS: Cyclobenzaprine 10 MG TAB PO PRN (10:57)
[2023-01-31] MEDS: metFORMIN 500 MG TAB PO SCH (17:31)
[2023-01-31] MEDS: oxyCODONE 5 MG TAB PO PRN (20:43)
[2023-02-01] MEDS: Cyclobenzaprine 10 MG TAB PO PRN ×2 (05:27→20:31)
[2023-02-01] MEDS: Levothyroxine Sodium 75 MCG TAB PO SCH (05:27)
[2023-02-01] MEDS: oxyCODONE 5 MG TAB PO PRN ×2 (05:27→20:30)
[2023-02-01] MEDS: DAPTOmycin 500 MG in Sodium Chloride 0.9% 100 ML IVPB SCH (09:14)
[2023-02-01] MEDS: Heparin 5,000 UNITS/ML VIAL SC SCH ×2 (09:14→20:29)
[2023-02-01] MEDS: Famotidine 20 MG TAB PO SCH (09:15)
[2023-02-01] MEDS: Carvedilol 6.25 MG TAB PO SCH ×2 (09:15→16:50)
[2023-02-01] MEDS: Pioglitazone HCl 15 MG TAB PO SCH (09:16)
[2023-02-01] MEDS: Polyethylene Glycol 3350 17 GM Packet PO SCH (09:16)
[2023-02-01] MEDS ORDERED: cefTRIAXone\\ROCEPHIN 2 GM in Sodium Chloride 0.9% 100 ML IVPB SCH (14:30)
[2023-02-01] MEDS: HumaLOG 300 UNITS/3 ML VIAL SC PRN (16:49)
[2023-02-01] MEDS: metFORMIN 500 MG TAB PO SCH (16:50)
[2023-02-02] MEDS: oxyCODONE 5 MG TAB PO PRN ×2 (05:52→17:36)
[2023-02-02] MEDS: Levothyroxine Sodium 75 MCG TAB PO SCH (05:53)
[2023-02-02] MEDS: Heparin 5,000 UNITS/ML VIAL SC SCH ×2 (07:42→20:18)
[2023-02-02] MEDS: Carvedilol 6.25 MG TAB PO SCH ×2 (07:43→17:12)
[2023-02-02] MEDS: Famotidine 20 MG TAB PO SCH (07:43)
[2023-02-02] MEDS: Pioglitazone HCl 15 MG TAB PO SCH (07:44)
[2023-02-02] MEDS: Polyethylene Glycol 3350 17 GM Packet PO SCH (07:44)
[2023-02-02] MEDS: DAPTOmycin 500 MG in Sodium Chloride 0.9% 100 ML IVPB SCH (07:45)
[2023-02-02] MEDS: cefTRIAXone\\ROCEPHIN 2 GM in Sodium Chloride 0.9% 100 ML IVPB SCH (10:19)
[2023-02-02] MEDS: metFORMIN 500 MG TAB PO SCH (17:12)
[2023-02-03] MEDS: Levothyroxine Sodium 75 MCG TAB PO SCH (05:47)
[2023-02-03 05:48] LABS: %Neutrophils 69.2 % (42.0-75.0); Hematocrit 26.6 % (36.0-47.0); Hemoglobin 8.3 g/dL (12.0-16.0); Manual Diff?? NO; Mean Corpuscular HGB CONC 31.3 g/dL (32.0-36.0); Mean Corpuscular Hemoglobin 26.7 pg (27.0-31.0); Mean Corpuscular Volume 85.4 fl (78.0-98.0); Mean Platelet Volume 6.2 fL (7.4-10.4); Platelet Count 269 10x3/uL (130-400); RBC Distribution Width 16.2 % (11.5-14.5); Red Blood Cell (RBC) Count 3.12 mill/uL (4.20-5.40); White Blood Cell (WBC) Count 5.1 10x3/uL (4.8-10.8)
[2023-02-03 05:49] LABS: #Basophils 0.1 thou/uL (0.0-0.2); #Eosinphils 0.1 thou/uL (0.0-0.7); #Lymphocytes 0.9 thou/uL (1.20-3.40); #Monocytes 0.5 thou/uL (0.11-0.59); #Neutrophils 3.5 thou/uL (1.40-6.50); %Basophils 1.2 % (0.0-1.0); %Eosinophils 1.2 % (0.0-10.0); %Lymphocytes 18.1 % (21.0-51.0); %Monocytes 10.3 % (0.0-10.0)
[2023-02-03 06:06] LABS: Anion Gap 14 mmol/L (10-20); BUN (Urea Nitrogen) 27 mg/dL (9.8-20.1); Calc. Creatinine Clearance 48 mL/min (70-130); Calcium 8.8 mg/dL (7.8-10.44); Carbon Dioxide 24 mmol/L (23-31); Chloride 99 mmol/L (98-107); Estimated GFR 49; Glucose 136 mg/dL (83-110); Sodium 133 mmol/L (136-145)
[2023-02-03] MEDS: oxyCODONE 5 MG TAB PO PRN ×2 (06:51→11:39)
[2023-02-03] MEDS: Famotidine 20 MG TAB PO SCH (08:03)
[2023-02-03] MEDS: Polyethylene Glycol 3350 17 GM Packet PO SCH (08:03)
[2023-02-03] MEDS: cefTRIAXone\\ROCEPHIN 2 GM in Sodium Chloride 0.9% 100 ML IVPB SCH (08:03)
[2023-02-03] MEDS: Pioglitazone HCl 15 MG TAB PO SCH (08:03)
[2023-02-03] MEDS: Carvedilol 6.25 MG TAB PO SCH ×2 (08:04→17:59)
[2023-02-03] MEDS: Heparin 5,000 UNITS/ML VIAL SC SCH ×2 (08:14→20:57)
[2023-02-03] MEDS: DAPTOmycin 500 MG in Sodium Chloride 0.9% 100 ML IVPB SCH (09:44)
[2023-02-03] MEDS: metFORMIN 500 MG TAB PO SCH (17:58)
[2023-02-04] MEDS: oxyCODONE 5 MG TAB PO PRN ×3 (03:27→17:58)
[2023-02-04] MEDS: Levothyroxine Sodium 75 MCG TAB PO SCH (05:46)
[2023-02-04] MEDS: Polyethylene Glycol 3350 17 GM Packet PO SCH (08:06)
[2023-02-04] MEDS: Famotidine 20 MG TAB PO SCH (08:07)
[2023-02-04] MEDS: Carvedilol 6.25 MG TAB PO SCH ×2 (08:07→16:55)
[2023-02-04] MEDS: Pioglitazone HCl 15 MG TAB PO SCH (08:07)
[2023-02-04] MEDS: Heparin 5,000 UNITS/ML VIAL SC SCH ×2 (08:08→20:33)
[2023-02-04] MEDS: cefTRIAXone\\ROCEPHIN 2 GM in Sodium Chloride 0.9% 100 ML IVPB SCH (08:08)
[2023-02-04] MEDS: DAPTOmycin 500 MG in Sodium Chloride 0.9% 100 ML IVPB SCH (08:08)
[2023-02-04] MEDS: metFORMIN 500 MG TAB PO SCH (16:55)
[2023-02-05] MEDS: oxyCODONE 5 MG TAB PO PRN ×2 (01:30→13:41)
[2023-02-05] MEDS: Levothyroxine Sodium 75 MCG TAB PO SCH (05:34)
[2023-02-05] MEDS: Carvedilol 6.25 MG TAB PO SCH ×2 (08:44→17:44)
[2023-02-05] MEDS: Heparin 5,000 UNITS/ML VIAL SC SCH ×2 (08:44→20:55)
[2023-02-05] MEDS: cefTRIAXone\\ROCEPHIN 2 GM in Sodium Chloride 0.9% 100 ML IVPB SCH (08:44)
[2023-02-05] MEDS: DAPTOmycin 500 MG in Sodium Chloride 0.9% 100 ML IVPB SCH (08:44)
[2023-02-05] MEDS: Polyethylene Glycol 3350 17 GM Packet PO SCH (08:44)
[2023-02-05] MEDS: Pioglitazone HCl 15 MG TAB PO SCH (08:45)
[2023-02-05] MEDS: Famotidine 20 MG TAB PO SCH (08:45)
[2023-02-05] MEDS: metFORMIN 500 MG TAB PO SCH (17:44)
[2023-02-06] MEDS: oxyCODONE 5 MG TAB PO PRN ×2 (05:39→19:44)
[2023-02-06] MEDS: Levothyroxine Sodium 75 MCG TAB PO SCH (05:40)
[2023-02-06 06:13] LABS: #Basophils 0.1 thou/uL (0.0-0.2); #Lymphocytes 1.2 thou/uL (1.20-3.40); #Monocytes 0.5 thou/uL (0.11-0.59); #Neutrophils 2.7 thou/uL (1.40-6.50); %Basophils 1.6 % (0.0-1.0); %Eosinophils 0.9 % (0.0-10.0); %Lymphocytes 27.7 % (21.0-51.0); %Monocytes 10.3 % (0.0-10.0); %Neutrophils 59.4 % (42.0-75.0); Hematocrit 28.3 % (36.0-47.0); Hemoglobin 8.7 g/dL (12.0-16.0); Mean Corpuscular HGB CONC 30.7 g/dL (32.0-36.0); Mean Corpuscular Hemoglobin 26.1 pg (27.0-31.0); Mean Corpuscular Volume 84.9 fl (78.0-98.0); Mean Platelet Volume 6.9 fL (7.4-10.4); Platelet Count 274 10x3/uL (130-400); Red Blood Cell (RBC) Count 3.33 mill/uL (4.20-5.40); White Blood Cell (WBC) Count 4.5 10x3/uL (4.8-10.8)
[2023-02-06 06:25] LABS: ALT (SGPT) 14 U/L (8-55); AST (SGOT) 18 U/L (5-34); Albumin 3.4 g/dL (3.4-4.8); Anion Gap 16 mmol/L (10-20); BUN (Urea Nitrogen) 26 mg/dL (9.8-20.1); Bilirubin, Total 0.2 mg/dL (0.2-1.2); CK (CPK) 132 U/L (29-168); Calc. Creatinine Clearance 48 mL/min (70-130); Calcium 9.1 mg/dL (7.8-10.44); Carbon Dioxide 23 mmol/L (23-31); Chloride 99 mmol/L (98-107); Estimated GFR 50; Globulin 3.2 g/dL (2.4-3.5); Glucose 145 mg/dL (83-110); Potassium 4.5 mmol/L (3.5-5.1); Protein, Total 6.6 g/dL (5.8-8.1); Sodium 133 mmol/L (136-145)
[2023-02-06 06:39] LABS: Alkaline Phosphatase 224 U/L (40-110)
[2023-02-06] MEDS: Carvedilol 6.25 MG TAB PO SCH ×2 (08:47→17:45)
[2023-02-06] MEDS: cefTRIAXone\\ROCEPHIN 2 GM in Sodium Chloride 0.9% 100 ML IVPB SCH (08:47)
[2023-02-06] MEDS: Famotidine 20 MG TAB PO SCH (08:47)
[2023-02-06] MEDS: Pioglitazone HCl 15 MG TAB PO SCH (08:47)
[2023-02-06] MEDS: Polyethylene Glycol 3350 17 GM Packet PO SCH (08:47)
[2023-02-06] MEDS: Heparin 5,000 UNITS/ML VIAL SC SCH ×2 (09:00→20:54)
[2023-02-06] MEDS: DAPTOmycin 500 MG in Sodium Chloride 0.9% 100 ML IVPB SCH (09:44)
[2023-02-06] MEDS: metFORMIN 500 MG TAB PO SCH (17:46)
[2023-02-07] MEDS: Levothyroxine Sodium 75 MCG TAB PO SCH (05:48)
[2023-02-07] MEDS: oxyCODONE 5 MG TAB PO PRN ×2 (06:17→20:25)
[2023-02-07] MEDS: DAPTOmycin 500 MG in Sodium Chloride 0.9% 100 ML IVPB SCH (08:25)
[2023-02-07] MEDS: Carvedilol 6.25 MG TAB PO SCH ×2 (08:28→17:20)
[2023-02-07] MEDS: Pioglitazone HCl 15 MG TAB PO SCH (08:28)
[2023-02-07] MEDS: Heparin 5,000 UNITS/ML VIAL SC SCH ×2 (08:29→20:27)
[2023-02-07] MEDS: Famotidine 20 MG TAB PO SCH (08:29)
[2023-02-07] MEDS: Polyethylene Glycol 3350 17 GM Packet PO SCH (08:30)
[2023-02-07] MEDS: cefTRIAXone\\ROCEPHIN 2 GM in Sodium Chloride 0.9% 100 ML IVPB SCH (08:40)
[2023-02-07] MEDS: metFORMIN 500 MG TAB PO SCH (17:19)
[2023-02-08] MEDS: Levothyroxine Sodium 75 MCG TAB PO SCH (05:54)
[2023-02-08] MEDS: cefTRIAXone\\ROCEPHIN 2 GM in Sodium Chloride 0.9% 100 ML IVPB SCH (08:54)
[2023-02-08] MEDS: Pioglitazone HCl 15 MG TAB PO SCH (08:55)
[2023-02-08] MEDS: Carvedilol 6.25 MG TAB PO SCH ×2 (08:55→16:36)
[2023-02-08] MEDS: Famotidine 20 MG TAB PO SCH (08:55)
[2023-02-08] MEDS: Heparin 5,000 UNITS/ML VIAL SC SCH ×2 (08:56→20:26)
[2023-02-08] MEDS: Polyethylene Glycol 3350 17 GM Packet PO SCH (09:02)
[2023-02-08] MEDS: DAPTOmycin 500 MG in Sodium Chloride 0.9% 100 ML IVPB SCH (10:09)
[2023-02-08] MEDS: Cyclobenzaprine 10 MG TAB PO PRN (15:53)
[2023-02-08] MEDS: Acetaminophen 325 MG TAB PO PRN (15:53)
[2023-02-08] MEDS: metFORMIN 500 MG TAB PO SCH (16:36)
[2023-02-08] MEDS: oxyCODONE 5 MG TAB PO PRN (20:25)
[2023-02-09] MEDS: Levothyroxine Sodium 75 MCG TAB PO SCH (06:00)
[2023-02-09] MEDS: oxyCODONE 5 MG TAB PO PRN (06:00)
[2023-02-09] MEDS: Furosemide 40 MG TAB PO SCH (07:21)
[2023-02-09] MEDS: cefTRIAXone\\ROCEPHIN 2 GM in Sodium Chloride 0.9% 100 ML IVPB SCH (08:20)
[2023-02-09] MEDS: Polyethylene Glycol 3350 17 GM Packet PO SCH (08:22)
[2023-02-09] MEDS: Carvedilol 6.25 MG TAB PO SCH ×2 (08:22→18:05)
[2023-02-09] MEDS: Famotidine 20 MG TAB PO SCH (08:23)
[2023-02-09] MEDS: DAPTOmycin 500 MG in Sodium Chloride 0.9% 100 ML IVPB SCH (08:23)
[2023-02-09] MEDS: Pioglitazone HCl 15 MG TAB PO SCH (08:26)
[2023-02-09] MEDS: Heparin 5,000 UNITS/ML VIAL SC SCH ×2 (08:35→21:28)
[2023-02-09] MEDS: metFORMIN 500 MG TAB PO SCH (18:05)
[2023-02-09] MEDS: Acetaminophen 325 MG TAB PO PRN (21:28)
[2023-02-10] MEDS: oxyCODONE 5 MG TAB PO PRN ×2 (05:25→20:14)
[2023-02-10] MEDS: Levothyroxine Sodium 75 MCG TAB PO SCH (05:25)
[2023-02-10 05:55] LABS: Anion Gap 15 mmol/L (10-20); BUN (Urea Nitrogen) 30 mg/dL (9.8-20.1); Calc. Creatinine Clearance 44 mL/min (70-130); Calcium 8.9 mg/dL (7.8-10.44); Carbon Dioxide 24 mmol/L (23-31); Chloride 101 mmol/L (98-107); Estimated GFR 42; Glucose 124 mg/dL (83-110); Potassium 3.9 mmol/L (3.5-5.1); Sodium 136 mmol/L (136-145)
[2023-02-10] MEDS: cefTRIAXone\\ROCEPHIN 2 GM in Sodium Chloride 0.9% 100 ML IVPB SCH (08:33)
[2023-02-10] MEDS: DAPTOmycin 500 MG in Sodium Chloride 0.9% 100 ML IVPB SCH (08:35)
[2023-02-10] MEDS: Heparin 5,000 UNITS/ML VIAL SC SCH ×2 (08:36→20:12)
[2023-02-10] MEDS: Polyethylene Glycol 3350 17 GM Packet PO SCH (08:36)
[2023-02-10] MEDS: Pioglitazone HCl 15 MG TAB PO SCH (08:37)
[2023-02-10] MEDS: Carvedilol 6.25 MG TAB PO SCH ×2 (08:37→17:43)
[2023-02-10] MEDS: Famotidine 20 MG TAB PO SCH (08:37)
[2023-02-10] MEDS: Furosemide 40 MG TAB PO SCH (08:38)
[2023-02-10] MEDS: Acetaminophen 325 MG TAB PO PRN (17:44)
[2023-02-10] MEDS: metFORMIN 500 MG TAB PO SCH (17:44)
[2023-02-11] MEDS: oxyCODONE 5 MG TAB PO PRN ×2 (06:02→14:01)
[2023-02-11] MEDS: Levothyroxine Sodium 75 MCG TAB PO SCH (06:03)
[2023-02-11] MEDS: Furosemide 40 MG TAB PO SCH (08:30)
[2023-02-11] MEDS: Carvedilol 6.25 MG TAB PO SCH ×2 (08:31→17:27)
[2023-02-11] MEDS: Polyethylene Glycol 3350 17 GM Packet PO SCH (08:33)
[2023-02-11] MEDS: Pioglitazone HCl 15 MG TAB PO SCH (08:33)
[2023-02-11] MEDS: Famotidine 20 MG TAB PO SCH (08:33)
[2023-02-11] MEDS: Heparin 5,000 UNITS/ML VIAL SC SCH ×2 (08:35→20:19)
[2023-02-11] MEDS: cefTRIAXone\\ROCEPHIN 2 GM in Sodium Chloride 0.9% 100 ML IVPB SCH (08:44)
[2023-02-11] MEDS: DAPTOmycin 500 MG in Sodium Chloride 0.9% 100 ML IVPB SCH (08:52)
[2023-02-11] MEDS: metFORMIN 500 MG TAB PO SCH (17:27)
[2023-02-11] MEDS: Acetaminophen 325 MG TAB PO PRN (20:22)
[2023-02-12] MEDS: Levothyroxine Sodium 75 MCG TAB PO SCH (04:44)
[2023-02-12] MEDS: Acetaminophen 325 MG TAB PO PRN ×2 (04:44→08:20)
[2023-02-12 04:46] LABS: #Eosinphils 0.1 thou/uL (0.0-0.7); #Lymphocytes 1.2 thou/uL (1.20-3.40); #Monocytes 0.4 thou/uL (0.11-0.59); #Neutrophils 1.9 thou/uL (1.40-6.50); %Basophils 1.1 % (0.0-1.0); %Eosinophils 1.7 % (0.0-10.0); %Lymphocytes 33.2 % (21.0-51.0); %Monocytes 11.3 % (0.0-10.0); %Neutrophils 52.7 % (42.0-75.0); Hematocrit 26.2 % (36.0-47.0); Hemoglobin 8.4 g/dL (12.0-16.0); Mean Corpuscular HGB CONC 31.9 g/dL (32.0-36.0); Mean Corpuscular Hemoglobin 26.7 pg (27.0-31.0); Mean Corpuscular Volume 83.5 fl (78.0-98.0); Mean Platelet Volume 7.2 fL (7.4-10.4); Platelet Count 226 10x3/uL (130-400); RBC Distribution Width 15.8 % (11.5-14.5); Red Blood Cell (RBC) Count 3.13 mill/uL (4.20-5.40); White Blood Cell (WBC) Count 3.5 10x3/uL (4.8-10.8)
[2023-02-12 05:03] LABS: Anion Gap 14 mmol/L (10-20); BUN (Urea Nitrogen) 29 mg/dL (9.8-20.1); Calc. Creatinine Clearance 39 mL/min (70-130); Calcium 8.8 mg/dL (7.8-10.44); Carbon Dioxide 26 mmol/L (23-31); Chloride 100 mmol/L (98-107); Estimated GFR 37; Glucose 116 mg/dL (83-110); Potassium 3.4 mmol/L (3.5-5.1); Sodium 137 mmol/L (136-145)
[2023-02-12] MEDS: cefTRIAXone\\ROCEPHIN 2 GM in Sodium Chloride 0.9% 100 ML IVPB SCH (08:04)
[2023-02-12] MEDS: Pioglitazone HCl 15 MG TAB PO SCH (08:05)
[2023-02-12] MEDS: Carvedilol 6.25 MG TAB PO SCH ×2 (08:05→17:27)
[2023-02-12] MEDS: Famotidine 20 MG TAB PO SCH (08:05)
[2023-02-12] MEDS: DAPTOmycin 500 MG in Sodium Chloride 0.9% 100 ML IVPB SCH (08:06)
[2023-02-12] MEDS: Polyethylene Glycol 3350 17 GM Packet PO SCH (08:06)
[2023-02-12] MEDS: Heparin 5,000 UNITS/ML VIAL SC SCH ×2 (08:26→21:33)
[2023-02-12] MEDS: Artificial Tear Sol 15 ML BOT EA EYE PRN (08:32)
[2023-02-12] MEDS ORDERED: Ferrous Sulfate 325 MG TAB PO SCH (09:15)
[2023-02-12] MEDS ORDERED: Potassium Chloride 20 MEQ TAB PO SCH (09:15)
[2023-02-12] MEDS: HumaLOG 300 UNITS/3 ML VIAL SC PRN (12:06)
[2023-02-12] MEDS: metFORMIN 500 MG TAB PO SCH (17:27)
[2023-02-12] MEDS: oxyCODONE 5 MG TAB PO PRN (17:37)
[2023-02-13] MEDS: oxyCODONE 5 MG TAB PO PRN ×3 (00:09→20:54)
[2023-02-13] MEDS: Cyclobenzaprine 10 MG TAB PO PRN ×2 (00:10→12:14)
[2023-02-13 05:53] LABS: #Eosinphils 0.1 thou/uL (0.0-0.7); #Lymphocytes 1.2 thou/uL (1.20-3.40); #Monocytes 0.4 thou/uL (0.11-0.59); #Neutrophils 2.4 thou/uL (1.40-6.50); %Eosinophils 1.4 % (0.0-10.0); %Lymphocytes 29.5 % (21.0-51.0); %Monocytes 10.2 % (0.0-10.0); Hematocrit 27.4 % (36.0-47.0); Hemoglobin 8.5 g/dL (12.0-16.0); Mean Corpuscular HGB CONC 31.1 g/dL (32.0-36.0); Mean Corpuscular Hemoglobin 25.9 pg (27.0-31.0); Mean Corpuscular Volume 83.4 fl (78.0-98.0); Mean Platelet Volume 6.7 fL (7.4-10.4); Platelet Count 212 10x3/uL (130-400); RBC Distribution Width 16.1 % (11.5-14.5); Red Blood Cell (RBC) Count 3.28 mill/uL (4.20-5.40); White Blood Cell (WBC) Count 4.1 10x3/uL (4.8-10.8)
[2023-02-13] MEDS: Levothyroxine Sodium 75 MCG TAB PO SCH (05:59)
[2023-02-13 06:07] LABS: ALT (SGPT) 14 U/L (8-55); AST (SGOT) 18 U/L (5-34); Albumin 3.3 g/dL (3.4-4.8); Alkaline Phosphatase 73 U/L (40-110); Anion Gap 14 mmol/L (10-20); BUN (Urea Nitrogen) 26 mg/dL (9.8-20.1); Bilirubin, Total 0.2 mg/dL (0.2-1.2); CK (CPK) 105 U/L (29-168); CRP (Inflammatory) Less than 0.50 mg/dL (= or < 0.5); Calc. Creatinine Clearance 49 mL/min (70-130); Calcium 8.9 mg/dL (7.8-10.44); Carbon Dioxide 25 mmol/L (23-31); Chloride 102 mmol/L (98-107); Estimated GFR 48; Globulin 2.9 g/dL (2.4-3.5); Glucose 123 mg/dL (83-110); Potassium 3.9 mmol/L (3.5-5.1); Protein, Total 6.2 g/dL (5.8-8.1); Sodium 137 mmol/L (136-145)
[2023-02-13] MEDS: Polyethylene Glycol 3350 17 GM Packet PO SCH (08:55)
[2023-02-13] MEDS: DAPTOmycin 500 MG in Sodium Chloride 0.9% 100 ML IVPB SCH (08:56)
[2023-02-13] MEDS: Heparin 5,000 UNITS/ML VIAL SC SCH ×2 (08:57→20:52)
[2023-02-13] MEDS: cefTRIAXone\\ROCEPHIN 2 GM in Sodium Chloride 0.9% 100 ML IVPB SCH (08:57)
[2023-02-13] MEDS: Famotidine 20 MG TAB PO SCH (08:58)
[2023-02-13] MEDS: Carvedilol 6.25 MG TAB PO SCH ×2 (08:58→17:43)
[2023-02-13] MEDS: Pioglitazone HCl 15 MG TAB PO SCH (08:58)
[2023-02-13] MEDS: Ferrous Sulfate 325 MG TAB PO SCH (08:58)
[2023-02-13] MEDS: HumaLOG 300 UNITS/3 ML VIAL SC PRN (11:40)
[2023-02-13] MEDS: metFORMIN 500 MG TAB PO SCH (17:43)
[2023-02-14] MEDS: Levothyroxine Sodium 75 MCG TAB PO SCH (06:19)
[2023-02-14] MEDS: Carvedilol 6.25 MG TAB PO SCH ×2 (08:16→17:33)
[2023-02-14] MEDS: Ferrous Sulfate 325 MG TAB PO SCH (08:16)
[2023-02-14] MEDS: Famotidine 20 MG TAB PO SCH (08:16)
[2023-02-14] MEDS: Pioglitazone HCl 15 MG TAB PO SCH (08:16)
[2023-02-14] MEDS: cefTRIAXone\\ROCEPHIN 2 GM in Sodium Chloride 0.9% 100 ML IVPB SCH (08:17)
[2023-02-14] MEDS: Heparin 5,000 UNITS/ML VIAL SC SCH ×2 (08:18→21:10)
[2023-02-14] MEDS: DAPTOmycin 500 MG in Sodium Chloride 0.9% 100 ML IVPB SCH (08:18)
[2023-02-14] MEDS: Polyethylene Glycol 3350 17 GM Packet PO SCH (08:19)
[2023-02-14] MEDS: Cyclobenzaprine 10 MG TAB PO PRN (12:17)
[2023-02-14] MEDS: oxyCODONE 5 MG TAB PO PRN (12:17)
[2023-02-14] MEDS: metFORMIN 500 MG TAB PO SCH (17:33)
[2023-02-15] MEDS: Levothyroxine Sodium 75 MCG TAB PO SCH (06:04)
[2023-02-15] MEDS: oxyCODONE 5 MG TAB PO PRN ×2 (06:40→18:22)
[2023-02-15] MEDS: DAPTOmycin 500 MG in Sodium Chloride 0.9% 100 ML IVPB SCH (09:25)
[2023-02-15] MEDS: cefTRIAXone\\ROCEPHIN 2 GM in Sodium Chloride 0.9% 100 ML IVPB SCH (09:26)
[2023-02-15] MEDS: Famotidine 20 MG TAB PO SCH (09:27)
[2023-02-15] MEDS: Pioglitazone HCl 15 MG TAB PO SCH (09:27)
[2023-02-15] MEDS: Ferrous Sulfate 325 MG TAB PO SCH (09:27)
[2023-02-15] MEDS: Heparin 5,000 UNITS/ML VIAL SC SCH ×2 (09:28→21:18)
[2023-02-15] MEDS: Carvedilol 6.25 MG TAB PO SCH ×2 (09:28→17:40)
[2023-02-15] MEDS: Polyethylene Glycol 3350 17 GM Packet PO SCH (09:41)
[2023-02-15] MEDS: metFORMIN 500 MG TAB PO SCH (17:39)
[2023-02-15] MEDS: Cyclobenzaprine 10 MG TAB PO PRN (18:22)
[2023-02-16] MEDS: Levothyroxine Sodium 75 MCG TAB PO SCH (06:43)
[2023-02-16] MEDS: Ferrous Sulfate 325 MG TAB PO SCH (07:44)
[2023-02-16] MEDS: oxyCODONE 5 MG TAB PO PRN (07:44)
[2023-02-16] MEDS: Famotidine 20 MG TAB PO SCH (07:44)
[2023-02-16] MEDS: Carvedilol 6.25 MG TAB PO SCH ×2 (07:47→17:02)
[2023-02-16] MEDS: Heparin 5,000 UNITS/ML VIAL SC SCH ×2 (07:48→20:29)
[2023-02-16] MEDS: cefTRIAXone\\ROCEPHIN 2 GM in Sodium Chloride 0.9% 100 ML IVPB SCH (07:58)
[2023-02-16] MEDS: Pioglitazone HCl 15 MG TAB PO SCH (07:58)
[2023-02-16] MEDS: Polyethylene Glycol 3350 17 GM Packet PO SCH (07:58)
[2023-02-16] MEDS: DAPTOmycin 500 MG in Sodium Chloride 0.9% 100 ML IVPB SCH (09:50)
[2023-02-16] MEDS: metFORMIN 500 MG TAB PO SCH (17:02)
[2023-02-16] MEDS: Bisacodyl 5 MG TAB PO PRN (17:46)
[2023-02-16] MEDS: Acetaminophen 325 MG TAB PO PRN (20:30)
[2023-02-17] MEDS: Levothyroxine Sodium 75 MCG TAB PO SCH (06:16)
[2023-02-17] MEDS: oxyCODONE 5 MG TAB PO PRN (06:16)
[2023-02-17] MEDS: cefTRIAXone\\ROCEPHIN 2 GM in Sodium Chloride 0.9% 100 ML IVPB SCH (09:13)
[2023-02-17] MEDS: Famotidine 20 MG TAB PO SCH (09:20)
[2023-02-17] MEDS: Pioglitazone HCl 15 MG TAB PO SCH (09:20)
[2023-02-17] MEDS: Ferrous Sulfate 325 MG TAB PO SCH (09:20)
[2023-02-17] MEDS: Polyethylene Glycol 3350 17 GM Packet PO SCH (09:21)
[2023-02-17] MEDS: Carvedilol 6.25 MG TAB PO SCH ×2 (09:21→17:01)
[2023-02-17] MEDS: Heparin 5,000 UNITS/ML VIAL SC SCH ×2 (09:24→20:48)
[2023-02-17] MEDS: Artificial Tear Sol 15 ML BOT EA EYE PRN (09:32)
[2023-02-17] MEDS: DAPTOmycin 500 MG in Sodium Chloride 0.9% 100 ML IVPB SCH (09:45)
[2023-02-17] MEDS: metFORMIN 500 MG TAB PO SCH (17:01)
[2023-02-18] MEDS: Levothyroxine Sodium 75 MCG TAB PO SCH (04:29)
[2023-02-18] MEDS: oxyCODONE 5 MG TAB PO PRN ×2 (04:29→20:41)
[2023-02-18] MEDS: cefTRIAXone\\ROCEPHIN 2 GM in Sodium Chloride 0.9% 100 ML IVPB SCH (08:41)
[2023-02-18] MEDS: Ferrous Sulfate 325 MG TAB PO SCH (08:44)
[2023-02-18] MEDS: Carvedilol 6.25 MG TAB PO SCH ×2 (08:44→17:30)
[2023-02-18] MEDS: Polyethylene Glycol 3350 17 GM Packet PO SCH (08:44)
[2023-02-18] MEDS: Pioglitazone HCl 15 MG TAB PO SCH (08:45)
[2023-02-18] MEDS: DAPTOmycin 500 MG in Sodium Chloride 0.9% 100 ML IVPB SCH (08:45)
[2023-02-18] MEDS: Famotidine 20 MG TAB PO SCH (08:45)
[2023-02-18] MEDS: Heparin 5,000 UNITS/ML VIAL SC SCH ×2 (08:51→20:41)
[2023-02-18] MEDS: metFORMIN 500 MG TAB PO SCH (17:30)
[2023-02-19] MEDS: oxyCODONE 5 MG TAB PO PRN (06:37)
[2023-02-19] MEDS: Levothyroxine Sodium 75 MCG TAB PO SCH (06:38)
[2023-02-19] MEDS: Famotidine 20 MG TAB PO SCH (08:41)
[2023-02-19] MEDS: Ferrous Sulfate 325 MG TAB PO SCH (08:41)
[2023-02-19] MEDS: Pioglitazone HCl 15 MG TAB PO SCH (08:41)
[2023-02-19] MEDS: Carvedilol 6.25 MG TAB PO SCH ×2 (08:41→17:13)
[2023-02-19] MEDS: Polyethylene Glycol 3350 17 GM Packet PO SCH (08:41)
[2023-02-19] MEDS: cefTRIAXone\\ROCEPHIN 2 GM in Sodium Chloride 0.9% 100 ML IVPB SCH (08:43)
[2023-02-19] MEDS: Heparin 5,000 UNITS/ML VIAL SC SCH ×2 (08:43→20:50)
[2023-02-19] MEDS: DAPTOmycin 500 MG in Sodium Chloride 0.9% 100 ML IVPB SCH (09:38)
[2023-02-19] MEDS: metFORMIN 500 MG TAB PO SCH (17:13)
[2023-02-20] MEDS: oxyCODONE 5 MG TAB PO PRN (01:21)
[2023-02-20] MEDS: Levothyroxine Sodium 75 MCG TAB PO SCH (05:56)
[2023-02-20 07:31] LABS: ALT (SGPT) 12 U/L (8-55); AST (SGOT) 16 U/L (5-34); Albumin 3.5 g/dL (3.4-4.8); Alkaline Phosphatase 75 U/L (40-110); Anion Gap 14 mmol/L (10-20); BUN (Urea Nitrogen) 21 mg/dL (9.8-20.1); Bilirubin, Total 0.2 mg/dL (0.2-1.2); CK (CPK) 72 U/L (29-168); CRP (Inflammatory) Less than 0.50 mg/dL (= or < 0.5); Calc. Creatinine Clearance 56 mL/min (70-130); Calcium 9.2 mg/dL (7.8-10.44); Chloride 103 mmol/L (98-107); Estimated GFR 57; Globulin 3.1 g/dL (2.4-3.5); Glucose 121 mg/dL (83-110); Potassium 4.3 mmol/L (3.5-5.1); Protein, Total 6.6 g/dL (5.8-8.1); Sodium 136 mmol/L (136-145)
[2023-02-20 07:46] LABS: #Eosinphils 0.1 thou/uL (0.0-0.7); #Lymphocytes 1.1 thou/uL (1.20-3.40); #Monocytes 0.4 thou/uL (0.11-0.59); #Neutrophils 2.3 thou/uL (1.40-6.50); %Eosinophils 1.4 % (0.0-10.0); %Lymphocytes 29.4 % (21.0-51.0); %Monocytes 9.8 % (0.0-10.0); %Neutrophils 58.4 % (42.0-75.0); Hematocrit 29.8 % (36.0-47.0); Hemoglobin 9.5 g/dL (12.0-16.0); Mean Corpuscular HGB CONC 31.8 g/dL (32.0-36.0); Mean Corpuscular Hemoglobin 27.1 pg (27.0-31.0); Mean Corpuscular Volume 85.1 fl (78.0-98.0); Mean Platelet Volume 7.5 fL (7.4-10.4); Platelet Count 223 10x3/uL (130-400); RBC Distribution Width 17.8 % (11.5-14.5); White Blood Cell (WBC) Count 3.9 10x3/uL (4.8-10.8)
[2023-02-20 07:48] LABS: Carbon Dioxide 23 mmol/L (23-31)
[2023-02-20] MEDS: Carvedilol 6.25 MG TAB PO SCH ×2 (08:39→16:20)
[2023-02-20] MEDS: Ferrous Sulfate 325 MG TAB PO SCH (08:40)
[2023-02-20] MEDS: cefTRIAXone\\ROCEPHIN 2 GM in Sodium Chloride 0.9% 100 ML IVPB SCH (09:05)
[2023-02-20] MEDS: Pioglitazone HCl 15 MG TAB PO SCH (09:07)
[2023-02-20] MEDS: Famotidine 20 MG TAB PO SCH (09:07)
[2023-02-20] MEDS: Polyethylene Glycol 3350 17 GM Packet PO SCH (09:08)
[2023-02-20] MEDS: Heparin 5,000 UNITS/ML VIAL SC SCH ×2 (09:10→20:35)
[2023-02-20] MEDS: DAPTOmycin 500 MG in Sodium Chloride 0.9% 100 ML IVPB SCH (09:50)
[2023-02-20] MEDS: metFORMIN 500 MG TAB PO SCH (16:20)
[2023-02-20] MEDS ORDERED: oxyCODONE 5 MG TAB PO PRN (18:25)
[2023-02-21] MEDS: Acetaminophen 325 MG TAB PO PRN ×2 (01:55→06:25)
[2023-02-21] MEDS: Levothyroxine Sodium 75 MCG TAB PO SCH (06:25)
[2023-02-21] MEDS: cefTRIAXone\\ROCEPHIN 2 GM in Sodium Chloride 0.9% 100 ML IVPB SCH (08:08)
[2023-02-21] MEDS: Heparin 5,000 UNITS/ML VIAL SC SCH ×2 (08:08→20:40)
[2023-02-21] MEDS: Carvedilol 6.25 MG TAB PO SCH ×2 (08:09→16:54)
[2023-02-21] MEDS: Ferrous Sulfate 325 MG TAB PO SCH (08:09)
[2023-02-21] MEDS: Famotidine 20 MG TAB PO SCH (08:09)
[2023-02-21] MEDS: Pioglitazone HCl 15 MG TAB PO SCH (08:09)
[2023-02-21] MEDS: Polyethylene Glycol 3350 17 GM Packet PO SCH (08:10)
[2023-02-21] MEDS: DAPTOmycin 500 MG in Sodium Chloride 0.9% 100 ML IVPB SCH (08:52)
[2023-02-21] MEDS: metFORMIN 500 MG TAB PO SCH (16:54)
[2023-02-22] MEDS: Levothyroxine Sodium 75 MCG TAB PO SCH (05:31)
[2023-02-22] MEDS: Ferrous Sulfate 325 MG TAB PO SCH (07:31)
[2023-02-22] MEDS: Pioglitazone HCl 15 MG TAB PO SCH (07:31)
[2023-02-22] MEDS: Carvedilol 6.25 MG TAB PO SCH (07:31)
[2023-02-22] MEDS: Famotidine 20 MG TAB PO SCH (07:31)
[2023-02-22] MEDS: Polyethylene Glycol 3350 17 GM Packet PO SCH (07:32)
[2023-02-22] MEDS: cefTRIAXone\\ROCEPHIN 2 GM in Sodium Chloride 0.9% 100 ML IVPB SCH (07:33)
[2023-02-22] MEDS: Heparin 5,000 UNITS/ML VIAL SC SCH ×2 (08:04→20:24)
[2023-02-22] MEDS: DAPTOmycin 500 MG in Sodium Chloride 0.9% 100 ML IVPB SCH (08:10)
[2023-02-22] MEDS: metFORMIN 500 MG TAB PO SCH (17:08)
[2023-02-22] MEDS: Carvedilol 25 MG TAB PO SCH (17:09)
[2023-02-22] MEDS: Acetaminophen 325 MG TAB PO PRN (23:46)
[2023-02-23] MEDS: Levothyroxine Sodium 75 MCG TAB PO SCH (06:14)
[2023-02-23] MEDS: cefTRIAXone\\ROCEPHIN 2 GM in Sodium Chloride 0.9% 100 ML IVPB SCH (08:07)
[2023-02-23] MEDS: Heparin 5,000 UNITS/ML VIAL SC SCH ×2 (08:08→20:16)
[2023-02-23] MEDS: Ferrous Sulfate 325 MG TAB PO SCH (08:08)
[2023-02-23] MEDS: Famotidine 20 MG TAB PO SCH (08:08)
[2023-02-23] MEDS: Pioglitazone HCl 15 MG TAB PO SCH (08:08)
[2023-02-23] MEDS: Carvedilol 25 MG TAB PO SCH ×2 (08:08→17:19)
[2023-02-23] MEDS: Polyethylene Glycol 3350 17 GM Packet PO SCH (08:09)
[2023-02-23] MEDS: DAPTOmycin 500 MG in Sodium Chloride 0.9% 100 ML IVPB SCH (08:57)
[2023-02-23] MEDS: metFORMIN 500 MG TAB PO SCH (17:19)
[2023-02-23] MEDS: Acetaminophen 325 MG TAB PO PRN (20:32)
[2023-02-24] MEDS: Levothyroxine Sodium 75 MCG TAB PO SCH (05:40)
[2023-02-24] MEDS: Acetaminophen 325 MG TAB PO PRN ×2 (06:07→20:16)
[2023-02-24] MEDS: Heparin 5,000 UNITS/ML VIAL SC SCH ×2 (08:44→20:15)
[2023-02-24] MEDS: Ferrous Sulfate 325 MG TAB PO SCH (08:45)
[2023-02-24] MEDS: Pioglitazone HCl 15 MG TAB PO SCH (08:45)
[2023-02-24] MEDS: Famotidine 20 MG TAB PO SCH (08:45)
[2023-02-24] MEDS: Cyclobenzaprine 10 MG TAB PO PRN (08:45)
[2023-02-24] MEDS: Carvedilol 25 MG TAB PO SCH ×2 (08:45→16:20)
[2023-02-24] MEDS: cefTRIAXone\\ROCEPHIN 2 GM in Sodium Chloride 0.9% 100 ML IVPB SCH (08:47)
[2023-02-24] MEDS: Polyethylene Glycol 3350 17 GM Packet PO SCH (08:48)
[2023-02-24] MEDS: DAPTOmycin 500 MG in Sodium Chloride 0.9% 100 ML IVPB SCH (08:48)
[2023-02-24] MEDS: metFORMIN 500 MG TAB PO SCH (16:20)
[2023-02-25] MEDS: Levothyroxine Sodium 75 MCG TAB PO SCH (06:01)
[2023-02-25] MEDS: Cyclobenzaprine 10 MG TAB PO PRN (06:29)
[2023-02-25] MEDS: HYDROcodone/Acetaminophen 5/325 mg Tablet PO PRN ×2 (06:29→20:00)
[2023-02-25] MEDS: cefTRIAXone\\ROCEPHIN 2 GM in Sodium Chloride 0.9% 100 ML IVPB SCH (09:12)
[2023-02-25] MEDS: DAPTOmycin 500 MG in Sodium Chloride 0.9% 100 ML IVPB SCH (09:14)
[2023-02-25] MEDS: Pioglitazone HCl 15 MG TAB PO SCH (09:15)
[2023-02-25] MEDS: Famotidine 20 MG TAB PO SCH (09:16)
[2023-02-25] MEDS: Carvedilol 25 MG TAB PO SCH ×2 (09:16→17:48)
[2023-02-25] MEDS: Ferrous Sulfate 325 MG TAB PO SCH (09:16)
[2023-02-25] MEDS: Heparin 5,000 UNITS/ML VIAL SC SCH ×2 (09:17→19:57)
[2023-02-25] MEDS: Acetaminophen 325 MG TAB PO PRN (09:17)
[2023-02-25] MEDS: Polyethylene Glycol 3350 17 GM Packet PO SCH (09:19)
[2023-02-25] MEDS: metFORMIN 500 MG TAB PO SCH (17:48)
[2023-02-26] MEDS: Levothyroxine Sodium 75 MCG TAB PO SCH (05:31)
[2023-02-26] MEDS: Heparin 5,000 UNITS/ML VIAL SC SCH ×2 (08:09→21:26)
[2023-02-26] MEDS: Ferrous Sulfate 325 MG TAB PO SCH (08:12)
[2023-02-26] MEDS: Famotidine 20 MG TAB PO SCH (08:12)
[2023-02-26] MEDS: Polyethylene Glycol 3350 17 GM Packet PO SCH ×2 (08:13→08:15)
[2023-02-26] MEDS: cefTRIAXone\\ROCEPHIN 2 GM in Sodium Chloride 0.9% 100 ML IVPB SCH (08:13)
[2023-02-26] MEDS: Carvedilol 25 MG TAB PO SCH ×2 (08:13→16:31)
[2023-02-26] MEDS: Pioglitazone HCl 15 MG TAB PO SCH (08:13)
[2023-02-26] MEDS: Acetaminophen 325 MG TAB PO PRN ×2 (12:25→17:56)
[2023-02-26] MEDS: metFORMIN 500 MG TAB PO SCH (16:31)
[2023-02-27] MEDS: Acetaminophen 325 MG TAB PO PRN ×2 (01:45→10:22)
[2023-02-27] MEDS: Levothyroxine Sodium 75 MCG TAB PO SCH (06:08)
[2023-02-27] MEDS: cefTRIAXone\\ROCEPHIN 2 GM in Sodium Chloride 0.9% 100 ML IVPB SCH (08:48)
[2023-02-27] MEDS: Ferrous Sulfate 325 MG TAB PO SCH (08:50)
[2023-02-27] MEDS: Carvedilol 25 MG TAB PO SCH ×2 (08:51→17:45)
[2023-02-27] MEDS: Pioglitazone HCl 15 MG TAB PO SCH (08:51)
[2023-02-27] MEDS: Famotidine 20 MG TAB PO SCH (08:51)
[2023-02-27] MEDS: Heparin 5,000 UNITS/ML VIAL SC SCH ×2 (08:53→21:14)
[2023-02-27 09:10] LABS: #Basophils 0.1 thou/uL (0.0-0.2); #Lymphocytes 0.8 thou/uL (1.20-3.40); #Monocytes 0.3 thou/uL (0.11-0.59); #Neutrophils 3.1 thou/uL (1.40-6.50); %Basophils 1.2 % (0.0-1.0); %Eosinophils 0.7 % (0.0-10.0); %Lymphocytes 18.4 % (21.0-51.0); %Monocytes 7.4 % (0.0-10.0); %Neutrophils 72.3 % (42.0-75.0); Hematocrit 35.6 % (36.0-47.0); Hemoglobin 10.7 g/dL (12.0-16.0); Mean Corpuscular HGB CONC 29.9 g/dL (32.0-36.0); Mean Corpuscular Hemoglobin 26.7 pg (27.0-31.0); Mean Corpuscular Volume 89.3 fl (78.0-98.0); Mean Platelet Volume 7.1 fL (7.4-10.4); Platelet Count 195 10x3/uL (130-400); RBC Distribution Width 19.8 % (11.5-14.5); Red Blood Cell (RBC) Count 3.99 mill/uL (4.20-5.40); White Blood Cell (WBC) Count 4.3 10x3/uL (4.8-10.8)
[2023-02-27 09:21] LABS: ALT (SGPT) 17 U/L (8-55); AST (SGOT) 18 U/L (5-34); Albumin 3.7 g/dL (3.4-4.8); Alkaline Phosphatase 72 U/L (40-110); Anion Gap 15 mmol/L (10-20); BUN (Urea Nitrogen) 19 mg/dL (9.8-20.1); Bilirubin, Total 0.3 mg/dL (0.2-1.2); CK (CPK) 65 U/L (29-168); CRP (Inflammatory) Less than 0.50 mg/dL (= or < 0.5); Calc. Creatinine Clearance 52 mL/min (70-130); Carbon Dioxide 23 mmol/L (23-31); Chloride 105 mmol/L (98-107); Estimated GFR 49; Globulin 2.8 g/dL (2.4-3.5); Glucose 161 mg/dL (83-110); Potassium 3.9 mmol/L (3.5-5.1); Protein, Total 6.5 g/dL (5.8-8.1); Sodium 139 mmol/L (136-145)
[2023-02-27] MEDS: Cyclobenzaprine 10 MG TAB PO PRN (10:23)
[2023-02-27] MEDS: Polyethylene Glycol 3350 17 GM Packet PO PRN (17:45)
[2023-02-27] MEDS: metFORMIN 500 MG TAB PO SCH (17:45)
[2023-02-27] MEDS: HYDROcodone/Acetaminophen 5/325 mg Tablet PO PRN (21:13)
[2023-02-28] MEDS: Levothyroxine Sodium 75 MCG TAB PO SCH (05:46)
[2023-02-28] MEDS: Ferrous Sulfate 325 MG TAB PO SCH (07:28)
[2023-02-28] MEDS: Carvedilol 25 MG TAB PO SCH ×2 (07:28→17:03)
[2023-02-28] MEDS: Famotidine 20 MG TAB PO SCH (08:00)
[2023-02-28] MEDS: Pioglitazone HCl 15 MG TAB PO SCH (08:00)
[2023-02-28] MEDS: cefTRIAXone\\ROCEPHIN 2 GM in Sodium Chloride 0.9% 100 ML IVPB SCH (08:01)
[2023-02-28] MEDS: Heparin 5,000 UNITS/ML VIAL SC SCH ×2 (08:02→20:54)
[2023-02-28] MEDS: Acetaminophen 325 MG TAB PO PRN ×2 (08:29→18:03)
[2023-02-28] MEDS: Cyclobenzaprine 10 MG TAB PO PRN (08:31)
[2023-02-28] MEDS ORDERED: Furosemide 20 MG TAB PO SCH (12:00)
[2023-02-28] MEDS: metFORMIN 500 MG TAB PO SCH (17:03)
[2023-02-28] MEDS: Polyethylene Glycol 3350 17 GM Packet PO PRN (19:31)
[2023-03-01] MEDS: Levothyroxine Sodium 75 MCG TAB PO SCH (05:17)
[2023-03-01] MEDS: Bisacodyl 5 MG TAB PO PRN (05:54)
[2023-03-01] MEDS: Acetaminophen 325 MG TAB PO PRN ×2 (05:54→09:42)
[2023-03-01 06:30] LABS: ALT (SGPT) 14 U/L (8-55); AST (SGOT) 18 U/L (5-34); Albumin 3.6 g/dL (3.4-4.8); Alkaline Phosphatase 68 U/L (40-110); Anion Gap 16 mmol/L (10-20); BUN (Urea Nitrogen) 22 mg/dL (9.8-20.1); Bilirubin, Total 0.3 mg/dL (0.2-1.2); Calc. Creatinine Clearance 45 mL/min (70-130); Calcium 9.1 mg/dL (7.8-10.44); Carbon Dioxide 22 mmol/L (23-31); Chloride 106 mmol/L (98-107); Estimated GFR 42; Globulin 2.9 g/dL (2.4-3.5); Glucose 158 mg/dL (83-110); Potassium 4.1 mmol/L (3.5-5.1); Protein, Total 6.5 g/dL (5.8-8.1); Sodium 140 mmol/L (136-145)
[2023-03-01] MEDS: cloNIDine 0.1 MG TAB PO PRN (07:17)
[2023-03-01] MEDS: Carvedilol 25 MG TAB PO SCH ×2 (07:17→16:51)
[2023-03-01] MEDS: Furosemide 20 MG TAB PO SCH (07:17)
[2023-03-01] MEDS: Ferrous Sulfate 325 MG TAB PO SCH (08:12)
[2023-03-01] MEDS: Famotidine 20 MG TAB PO SCH (08:12)
[2023-03-01] MEDS: Heparin 5,000 UNITS/ML VIAL SC SCH ×2 (08:13→20:22)
[2023-03-01] MEDS: Pioglitazone HCl 15 MG TAB PO SCH (08:13)
[2023-03-01] MEDS: cefTRIAXone\\ROCEPHIN 2 GM in Sodium Chloride 0.9% 100 ML IVPB SCH (08:30)
[2023-03-01] MEDS: Lidocaine 4% Patch TD SCH (14:27)
[2023-03-01] MEDS: metFORMIN 500 MG TAB PO SCH (16:51)
[2023-03-01] MEDS ORDERED: Acetaminophen 650 MG Suppository PR PRN (18:49)
[2023-03-01] MEDS ORDERED: HYDROcodone/Acetaminophen 5/325 mg Tablet PO PRN (18:49)
[2023-03-02] MEDS: Acetaminophen 325 MG TAB PO PRN (02:15)
[2023-03-02] MEDS: LIDOCAINE Patch Removal TOP SCH (02:22)
[2023-03-02] MEDS: Levothyroxine Sodium 75 MCG TAB PO SCH (05:42)
[2023-03-02] MEDS: Heparin 5,000 UNITS/ML VIAL SC SCH ×2 (07:57→21:13)
[2023-03-02] MEDS: Pioglitazone HCl 15 MG TAB PO SCH (07:58)
[2023-03-02] MEDS: Famotidine 20 MG TAB PO SCH (07:58)
[2023-03-02] MEDS: Carvedilol 25 MG TAB PO SCH ×2 (07:58→16:10)
[2023-03-02] MEDS: Furosemide 20 MG TAB PO SCH (07:58)
[2023-03-02] MEDS: Ferrous Sulfate 325 MG TAB PO SCH (07:58)
[2023-03-02] MEDS: cefTRIAXone\\ROCEPHIN 2 GM in Sodium Chloride 0.9% 100 ML IVPB SCH (08:16)
[2023-03-02] MEDS: HumaLOG 300 UNITS/3 ML VIAL SC PRN (11:13)
[2023-03-02] MEDS: Lidocaine 4% Patch TD SCH (14:18)
[2023-03-02] MEDS: metFORMIN 500 MG TAB PO SCH (16:10)
[2023-03-02] MEDS ORDERED: Amlodipine 5 MG TAB PO SCH (21:00)
[2023-03-03] MEDS: LIDOCAINE Patch Removal TOP SCH (03:58)
[2023-03-03 04:03] VITALS: BMI 34.6
[2023-03-03] MEDS: Levothyroxine Sodium 75 MCG TAB PO SCH (05:25)
[2023-03-03] MEDS: Acetaminophen 325 MG TAB PO PRN (08:23)
[2023-03-03] MEDS: Ferrous Sulfate 325 MG TAB PO SCH (08:23)
[2023-03-03] MEDS: Pioglitazone HCl 15 MG TAB PO SCH (08:24)
[2023-03-03] MEDS: Famotidine 20 MG TAB PO SCH (08:24)
[2023-03-03] MEDS: Carvedilol 25 MG TAB PO SCH (08:25)
[2023-03-03] MEDS: Furosemide 20 MG TAB PO SCH (08:25)
[2023-03-03] MEDS: Heparin 5,000 UNITS/ML VIAL SC SCH (08:26)
[2023-03-03 08:41] VITALS: BP 155/70; TEMP 98.6
== END 2023-03-03 13:20 | disposition home health service (06) | DRG 560 ==
LOC: NAV ACUTE 20:35
PROVIDERS: ADMIT Family Medicine; ATTEND Family Medicine
DX: S32.028D Other fracture of second lumbar vertebra, subsequent encounter for fracture with routine healing (principal); E87.1 Hypo-osmolality and hyponatremia; M86.8X4 Other osteomyelitis, hand; I50.32 Chronic diastolic (congestive) heart failure; I13.0 Hypertensive heart and chronic kidney disease with heart failure and stage 1 through stage 4 chronic kidney disease, or unspecified chronic kidney disease; I25.10 Atherosclerotic heart disease of native coronary artery without angina pectoris; E78.5 Hyperlipidemia, unspecified; R53.1 Weakness; E03.9 Hypothyroidism, unspecified; R53.81 Other malaise; K59.00 Constipation, unspecified; N18.32 Chronic kidney disease, stage 3b; G89.29 Other chronic pain; D63.1 Anemia in chronic kidney disease; E87.6 Hypokalemia; E11.22 Type 2 diabetes mellitus with diabetic chronic kidney disease; S32.018D Other fracture of first lumbar vertebra, subsequent encounter for fracture with routine healing; Z98.890 Other specified postprocedural states; Z90.710 Acquired absence of both cervix and uterus; Z90.49 Acquired absence of other specified parts of digestive tract; Z90.89 Acquired absence of other organs; Z98.51 Tubal ligation status; Z79.890 Hormone replacement therapy; Z79.84 Long term (current) use of oral hypoglycemic drugs; Z79.82 Long term (current) use of aspirin; Z79.899 Other long term (current) drug therapy
CPT/HCPCS: 36415; 36416; 71045; 72100; 74018; 74176; 80048; 80053; 82550; 85025; 85379; 86140; J0696; J0878; J1644; J1815; J3490; Q0162

== ENCOUNTER 2023-05-30 13:08 | Emergency (ER) | payer MEDICARE ==
[2023-05-30 14:32] LABS: #Lymphocytes 1.6 thou/uL (1.20-3.40); #Monocytes 0.7 thou/uL (0.11-0.59); #Neutrophils 7.2 thou/uL (1.40-6.50); %Basophils 0.4 % (0.0-1.0); %Eosinophils 0.4 % (0.0-10.0); %Lymphocytes 16.3 % (21.0-51.0); %Monocytes 7.7 % (0.0-10.0); %Neutrophils 75.1 % (42.0-75.0); Hematocrit 32.4 % (36.0-47.0); Hemoglobin 10.6 g/dL (12.0-16.0); Mean Corpuscular HGB CONC 32.7 g/dL (32.0-36.0); Mean Corpuscular Volume 85.5 fl (78.0-98.0); Mean Platelet Volume 7.4 fL (7.4-10.4); Platelet Count 280 10x3/uL (130-400); Red Blood Cell (RBC) Count 3.79 mill/uL (4.20-5.40); White Blood Cell (WBC) Count 9.5 10x3/uL (4.8-10.8)
[2023-05-30 14:41] LABS: ALT (SGPT) 16 U/L (8-55); AST (SGOT) 19 U/L (5-34); Albumin 3.3 g/dL (3.4-4.8); Alkaline Phosphatase 68 U/L (40-110); Anion Gap 14 mmol/L (10-20); BUN (Urea Nitrogen) 36 mg/dL (9.8-20.1); Bilirubin, Total 0.3 mg/dL (0.2-1.2); Calc. Creatinine Clearance 0 mL/min (70-130); Calcium 9.3 mg/dL (7.8-10.44); Carbon Dioxide 36 mmol/L (23-31); Chloride 94 mmol/L (98-107); Estimated GFR 58; Globulin 4.3 g/dL (2.4-3.5); Glucose 163 mg/dL (83-110); Potassium 3.1 mmol/L (3.5-5.1); Protein, Total 7.6 g/dL (5.8-8.1); Sodium 141 mmol/L (136-145)
[2023-05-30] MEDS ORDERED: Furosemide 20 MG (2 mL) VIAL ONE (15:23)
[2023-05-30] MEDS ORDERED: Potassium Chloride 20 MEQ TAB ONE (15:23)
[2023-05-30] MEDS ORDERED: Colchicine 0.6 MG TAB PO SCH (15:45)
== END 2023-05-30 16:00 | disposition home or self-care (01) ==
LOC: NAV ERS 13:08
DX: I11.0 Hypertensive heart disease with heart failure (principal); I50.21 Acute systolic (congestive) heart failure; E87.6 Hypokalemia; M10.9 Gout, unspecified; E11.9 Type 2 diabetes mellitus without complications; I25.10 Atherosclerotic heart disease of native coronary artery without angina pectoris
CPT/HCPCS: 71045; 80053; 83880; 84550; 85025; 93005; 96374; J1940

== ENCOUNTER 2023-09-21 14:21 | Inpatient (IN) | payer MEDICARE ==
[2023-09-21] MEDS: Diclofenac 1% 100 GM Topical GEL TP SCH (22:13)
[2023-09-21] MEDS: Melatonin 3 MG TAB PO SCH (22:15)
[2023-09-21] MEDS: Gabapentin 100 MG CAP PO SCH (22:15)
[2023-09-21] MEDS: Famotidine 20 MG TAB PO SCH (22:17)
[2023-09-21] MEDS: Senokot S 8.6-50 MG TAB PO PRN (22:20)
[2023-09-21] MEDS: dilTIAZem 60 MG TAB PO SCH (22:37)
[2023-09-22] MEDS ORDERED: Cyclobenzaprine 10 MG TAB PO PRN (00:02)
[2023-09-22] MEDS: Levothyroxine Sodium 75 MCG TAB PO SCH (05:46)
[2023-09-22 05:49] LABS: #Basophils 0.1 thou/uL (0.0-0.2); #Eosinphils 0.1 thou/uL (0.0-0.7); #Lymphocytes 1.3 thou/uL (1.20-3.40); #Monocytes 0.7 thou/uL (0.11-0.59); #Neutrophils 4.2 thou/uL (1.40-6.50); %Basophils 0.8 % (0.0-1.0); %Eosinophils 2.1 % (0.0-10.0); %Lymphocytes 20.7 % (21.0-51.0); %Monocytes 10.3 % (0.0-10.0); %Neutrophils 66.1 % (42.0-75.0); Hematocrit 29.3 % (36.0-47.0); Hemoglobin 8.7 g/dL (12.0-16.0); Mean Corpuscular HGB CONC 29.8 g/dL (32.0-36.0); Mean Corpuscular Hemoglobin 25.2 pg (27.0-31.0); Mean Corpuscular Volume 84.7 fl (78.0-98.0); Mean Platelet Volume 6.7 fL (7.4-10.4); Platelet Count 193 10x3/uL (130-400); RBC Distribution Width 15.2 % (11.5-14.5); Red Blood Cell (RBC) Count 3.46 mill/uL (4.20-5.40); White Blood Cell (WBC) Count 6.4 10x3/uL (4.8-10.8)
[2023-09-22 06:01] LABS: ALT (SGPT) 113 U/L (8-55); AST (SGOT) 80 U/L (5-34); Albumin 3.3 g/dL (3.4-4.8); Alkaline Phosphatase 69 U/L (40-110); BUN (Urea Nitrogen) 69 mg/dL (9.8-20.1); Bilirubin, Total 0.6 mg/dL (0.2-1.2); Calc. Creatinine Clearance 37 mL/min (70-130); Calcium 8.9 mg/dL (7.8-10.44); Estimated GFR 36; Globulin 2.9 g/dL (2.4-3.5); Glucose 131 mg/dL (83-110); Protein, Total 6.2 g/dL (5.8-8.1)
[2023-09-22 06:05] LABS: Chloride 87 mmol/L (98-107); Potassium 3.5 mmol/L (3.5-5.1); Sodium 140 mmol/L (136-145)
[2023-09-22 06:12] LABS: Carbon Dioxide 37 mmol/L (23-31)
[2023-09-22] MEDS: Cholecalciferol 1,000 UNITS (25 MCG) TAB PO SCH (08:28)
[2023-09-22] MEDS: Multivitamin w/Zinc Stress 1 TAB PO SCH (08:29)
[2023-09-22] MEDS: Aspirin Chewable 81 MG TAB PO SCH (08:29)
[2023-09-22] MEDS: Ferrous Sulfate 325 MG TAB PO SCH (08:29)
[2023-09-22] MEDS: Enoxaparin 30 MG (0.3 mL) SYRINGE SC SCH (08:30)
[2023-09-22] MEDS: Ondansetron ODT 4 MG TAB SL PRN (10:38)
[2023-09-22] MEDS ORDERED: Glucagon 1 MG/ML KIT IM PRN (10:41)
[2023-09-22] MEDS ORDERED: Dextrose 50% Abboject 50 ML SYRINGE SLOW IVP PRN (10:41)
[2023-09-22] MEDS: HumaLOG 300 UNITS/3 ML VIAL SC PRN (12:06)
[2023-09-23] MEDS: Empagliflozin 10 MG TAB PO SCH (08:32)
[2023-09-23] MEDS: Furosemide 20 MG TAB PO SCH (08:32)
[2023-09-23] MEDS: Potassium Chloride 8 MEQ TAB PO SCH (09:36)
[2023-09-24 05:28] LABS: #Basophils 0.1 thou/uL (0.0-0.2); #Eosinphils 0.1 thou/uL (0.0-0.7); #Lymphocytes 1.3 thou/uL (1.20-3.40); #Monocytes 0.6 thou/uL (0.11-0.59); #Neutrophils 4.2 thou/uL (1.40-6.50); %Eosinophils 1.5 % (0.0-10.0); %Lymphocytes 20.6 % (21.0-51.0); %Monocytes 9.8 % (0.0-10.0); Hematocrit 26.8 % (36.0-47.0); Hemoglobin 8.2 g/dL (12.0-16.0); Mean Corpuscular HGB CONC 30.7 g/dL (32.0-36.0); Mean Corpuscular Hemoglobin 25.7 pg (27.0-31.0); Mean Corpuscular Volume 83.7 fl (78.0-98.0); Platelet Count 196 10x3/uL (130-400); RBC Distribution Width 15.7 % (11.5-14.5); White Blood Cell (WBC) Count 6.3 10x3/uL (4.8-10.8)
[2023-09-24 05:44] LABS: ALT (SGPT) 89 U/L (8-55); AST (SGOT) 55 U/L (5-34); Albumin 3.2 g/dL (3.4-4.8); Alkaline Phosphatase 59 U/L (40-110); BUN (Urea Nitrogen) 59 mg/dL (9.8-20.1); Bilirubin, Total 0.5 mg/dL (0.2-1.2); Calc. Creatinine Clearance 39 mL/min (70-130); Calcium 8.6 mg/dL (7.8-10.44); Estimated GFR 39; Globulin 3.1 g/dL (2.4-3.5); Glucose 132 mg/dL (83-110); Protein, Total 6.3 g/dL (5.8-8.1)
[2023-09-24 05:48] LABS: Chloride 90 mmol/L (98-107); Potassium 3.4 mmol/L (3.5-5.1); Sodium 138 mmol/L (136-145)
[2023-09-24 05:56] LABS: Carbon Dioxide 30 mmol/L (23-31)
[2023-09-24] MEDS: Potassium Chloride 20 MEQ TAB PO SCH (11:00)
[2023-09-24] MEDS: HumaLOG 300 UNITS/3 ML VIAL SC PRN (21:49)
[2023-09-25 06:15] LABS: Hematocrit 26.7 % (36.0-47.0); Hemoglobin 7.9 g/dL (12.0-16.0); Mean Corpuscular HGB CONC 29.3 g/dL (32.0-36.0); Mean Corpuscular Hemoglobin 25.1 pg (27.0-31.0); Mean Corpuscular Volume 85.7 fl (78.0-98.0); Mean Platelet Volume 6.3 fL (7.4-10.4); Platelet Count 207 10x3/uL (130-400); RBC Distribution Width 16.2 % (11.5-14.5); Red Blood Cell (RBC) Count 3.12 mill/uL (4.20-5.40); White Blood Cell (WBC) Count 8.2 10x3/uL (4.8-10.8)
[2023-09-27 06:06] LABS: #Lymphocytes 1.5 thou/uL (1.20-3.40); #Monocytes 0.6 thou/uL (0.11-0.59); #Neutrophils 4.6 thou/uL (1.40-6.50); %Basophils 0.6 % (0.0-1.0); %Eosinophils 0.6 % (0.0-10.0); %Lymphocytes 22.2 % (21.0-51.0); %Monocytes 8.8 % (0.0-10.0); %Neutrophils 67.8 % (42.0-75.0); Hematocrit 22.4 % (36.0-47.0); Hemoglobin 6.6 g/dL (12.0-16.0); Mean Corpuscular HGB CONC 29.5 g/dL (32.0-36.0); Mean Corpuscular Hemoglobin 25.4 pg (27.0-31.0); Mean Corpuscular Volume 86.1 fl (78.0-98.0); Mean Platelet Volume 5.7 fL (7.4-10.4); Platelet Count 205 10x3/uL (130-400); White Blood Cell (WBC) Count 6.8 10x3/uL (4.8-10.8)
[2023-09-27 06:19] LABS: Anion Gap 15 mmol/L (10-20); BUN (Urea Nitrogen) 74 mg/dL (9.8-20.1); Calc. Creatinine Clearance 44 mL/min (70-130); Calcium 8.9 mg/dL (7.8-10.44); Carbon Dioxide 32 mmol/L (23-31); Chloride 96 mmol/L (98-107); Estimated GFR 43; Glucose 156 mg/dL (83-110); Potassium 3.4 mmol/L (3.5-5.1); Sodium 140 mmol/L (136-145)
[2023-09-27] MEDS: Potassium Chloride 20 MEQ TAB PO SCH (17:23)
[2023-09-27] MEDS ORDERED: Furosemide 40 MG (4 mL) VIAL SLOW IVP SCH (18:15)
[2023-09-27] MEDS: Furosemide 40 MG (4 mL) VIAL SLOW IVP SCH (19:22)
[2023-09-27] MEDS: Acetaminophen 325 MG TAB PO PRN (20:54)
[2023-09-28] MEDS: Furosemide 40 MG (4 mL) VIAL SLOW IVP SCH (01:02)
[2023-09-28 05:57] LABS: #Basophils 0.1 thou/uL (0.0-0.2); #Eosinphils 0.1 thou/uL (0.0-0.7); #Lymphocytes 1.2 thou/uL (1.20-3.40); #Monocytes 0.5 thou/uL (0.11-0.59); #Neutrophils 3.4 thou/uL (1.40-6.50); %Basophils 1.2 % (0.0-1.0); %Lymphocytes 22.6 % (21.0-51.0); %Monocytes 9.9 % (0.0-10.0); %Neutrophils 65.3 % (42.0-75.0); Hematocrit 22.7 % (36.0-47.0); Hemoglobin 7.1 g/dL (12.0-16.0); Mean Corpuscular HGB CONC 31.3 g/dL (32.0-36.0); Mean Corpuscular Hemoglobin 26.9 pg (27.0-31.0); Mean Corpuscular Volume 85.7 fl (78.0-98.0); Mean Platelet Volume 6.2 fL (7.4-10.4); Platelet Count 183 10x3/uL (130-400); RBC Distribution Width 16.7 % (11.5-14.5); Red Blood Cell (RBC) Count 2.64 mill/uL (4.20-5.40); White Blood Cell (WBC) Count 5.2 10x3/uL (4.8-10.8)
[2023-09-28 06:12] LABS: Anion Gap 16 mmol/L (10-20); BUN (Urea Nitrogen) 77 mg/dL (9.8-20.1); Calc. Creatinine Clearance 35 mL/min (70-130); Calcium 8.5 mg/dL (7.8-10.44); Carbon Dioxide 31 mmol/L (23-31); Chloride 99 mmol/L (98-107); Estimated GFR 33; Glucose 136 mg/dL (83-110); Potassium 3.5 mmol/L (3.5-5.1); Sodium 142 mmol/L (136-145)
[2023-09-28] MEDS ORDERED: Furosemide 20 MG (2 mL) VIAL SLOW IVP SCH (17:00)
[2023-09-28 21:44] LABS: #Eosinphils 0.1 thou/uL (0.0-0.7); #Lymphocytes 1.2 thou/uL (1.20-3.40); #Monocytes 0.7 thou/uL (0.11-0.59); #Neutrophils 5.3 thou/uL (1.40-6.50); %Basophils 0.5 % (0.0-1.0); %Lymphocytes 16.6 % (21.0-51.0); %Monocytes 10.1 % (0.0-10.0); %Neutrophils 71.8 % (42.0-75.0); Hematocrit 25.2 % (36.0-47.0); Hemoglobin 7.8 g/dL (12.0-16.0); Manual Diff?? NO; Mean Corpuscular Hemoglobin 26.2 pg (27.0-31.0); Mean Corpuscular Volume 84.3 fl (78.0-98.0); Mean Platelet Volume 5.8 fL (7.4-10.4); Platelet Count 184 10x3/uL (130-400); RBC Distribution Width 17.7 % (11.5-14.5); Red Blood Cell (RBC) Count 2.99 mill/uL (4.20-5.40); White Blood Cell (WBC) Count 7.4 10x3/uL (4.8-10.8)
[2023-09-29 05:58] LABS: Hematocrit 26.1 % (36.0-47.0); Hemoglobin 7.7 g/dL (12.0-16.0); Mean Corpuscular HGB CONC 29.4 g/dL (32.0-36.0); Mean Corpuscular Hemoglobin 25.3 pg (27.0-31.0); Mean Corpuscular Volume 85.9 fl (78.0-98.0); Mean Platelet Volume 6.5 fL (7.4-10.4); Platelet Count 182 10x3/uL (130-400); RBC Distribution Width 18.7 % (11.5-14.5); Red Blood Cell (RBC) Count 3.04 mill/uL (4.20-5.40); White Blood Cell (WBC) Count 6.2 10x3/uL (4.8-10.8)
[2023-09-29 06:00] LABS: #Basophils 0.1 thou/uL (0.0-0.2); #Eosinphils 0.3 thou/uL (0.0-0.7); #Lymphocytes 1.1 thou/uL (1.20-3.40); #Monocytes 0.5 thou/uL (0.11-0.59); #Neutrophils 4.5 thou/uL (1.40-6.50); %Basophils 0.9 % (0.0-1.0); %Eosinophils 0.5 % (0.0-10.0); %Lymphocytes 17.1 % (21.0-51.0); %Monocytes 8.6 % (0.0-10.0); Manual Diff?? NO
[2023-09-29 06:06] LABS: Anion Gap 12 mmol/L (10-20); BUN (Urea Nitrogen) 76 mg/dL (9.8-20.1); Calc. Creatinine Clearance 36 mL/min (70-130); Calcium 8.3 mg/dL (7.8-10.44); Chloride 99 mmol/L (98-107); Estimated GFR 34; Glucose 147 mg/dL (83-110); Potassium 3.4 mmol/L (3.5-5.1); Sodium 143 mmol/L (136-145)
[2023-09-29 06:34] LABS: Carbon Dioxide 35 mmol/L (23-31)
[2023-09-29] MEDS: Potassium Chloride 20 MEQ TAB PO SCH (15:19)
[2023-09-30 06:56] LABS: Anion Gap 14 mmol/L (10-20); BUN (Urea Nitrogen) 61 mg/dL (9.8-20.1); Calc. Creatinine Clearance 45 mL/min (70-130); Calcium 8.7 mg/dL (7.8-10.44); Carbon Dioxide 30 mmol/L (23-31); Chloride 103 mmol/L (98-107); Estimated GFR 45; Glucose 146 mg/dL (83-110); Potassium 3.6 mmol/L (3.5-5.1); Sodium 143 mmol/L (136-145)
[2023-09-30 07:26] LABS: #Basophils 0.1 thou/uL (0.0-0.2); #Eosinphils 0.1 thou/uL (0.0-0.7); #Lymphocytes 1.3 thou/uL (1.20-3.40); #Monocytes 0.7 thou/uL (0.11-0.59); #Neutrophils 5.4 thou/uL (1.40-6.50); %Basophils 0.8 % (0.0-1.0); %Eosinophils 0.7 % (0.0-10.0); %Lymphocytes 17.1 % (21.0-51.0); %Monocytes 9.2 % (0.0-10.0); %Neutrophils 72.1 % (42.0-75.0); Anisocytosis MODERATE=16-30 cells (100X) (0-5/hpf); Hematocrit 25.3 % (36.0-47.0); Hemoglobin 7.5 g/dL (12.0-16.0); Hypochromia SLIGHT = 6-15 cells (100X) (0-5/hpf); MDiff Complete? YES; Mean Corpuscular HGB CONC 29.6 g/dL (32.0-36.0); Mean Corpuscular Hemoglobin 25.9 pg (27.0-31.0); Mean Corpuscular Volume 87.3 fl (78.0-98.0); Mean Platelet Volume 6.1 fL (7.4-10.4); Platelet Count 192 10x3/uL (130-400); Poikilocytosis SLIGHT = 6-15 cells (100X) (0-5/hpf); RBC Distribution Width 18.9 % (11.5-14.5); White Blood Cell (WBC) Count 7.5 10x3/uL (4.8-10.8)
[2023-10-01 07:19] LABS: Hematocrit 21.6 % (36.0-47.0); Hemoglobin 6.7 g/dL (12.0-16.0); Mean Corpuscular HGB CONC 31.1 g/dL (32.0-36.0); Mean Corpuscular Hemoglobin 26.6 pg (27.0-31.0); Mean Corpuscular Volume 85.7 fl (78.0-98.0); Mean Platelet Volume 6.2 fL (7.4-10.4); Platelet Count 192 10x3/uL (130-400); RBC Distribution Width 19.2 % (11.5-14.5); Red Blood Cell (RBC) Count 2.52 mill/uL (4.20-5.40); White Blood Cell (WBC) Count 6.8 10x3/uL (4.8-10.8)
[2023-10-01] MEDS ORDERED: Bisacodyl 10 MG SUPP PR PRN (15:25)
[2023-10-01] MEDS: Furosemide 20 MG (2 mL) VIAL SLOW IVP SCH ×2 (15:51→18:15)
[2023-10-01] MEDS: Bisacodyl 5 MG TAB PO PRN (18:14)
[2023-10-01 19:40] LABS: Hematocrit 28.7 % (36.0-47.0); Hemoglobin 8.5 g/dL (12.0-16.0); Mean Corpuscular HGB CONC 29.6 g/dL (32.0-36.0); Mean Corpuscular Hemoglobin 26.3 pg (27.0-31.0); Mean Corpuscular Volume 88.9 fl (78.0-98.0); Mean Platelet Volume 6.2 fL (7.4-10.4); Platelet Count 214 10x3/uL (130-400); RBC Distribution Width 18.5 % (11.5-14.5); Red Blood Cell (RBC) Count 3.23 mill/uL (4.20-5.40); White Blood Cell (WBC) Count 10.4 10x3/uL (4.8-10.8)
[2023-10-02] MEDS: Polyethylene Glycol 3350 17 GM Packet PO SCH (08:14)
[2023-10-02 13:19] LABS: Hematocrit 34.1 % (36.0-47.0); Mean Corpuscular HGB CONC 29.2 g/dL (32.0-36.0); Mean Corpuscular Hemoglobin 26.6 pg (27.0-31.0); Mean Corpuscular Volume 90.9 fl (78.0-98.0); Mean Platelet Volume 6.2 fL (7.4-10.4); Platelet Count 234 10x3/uL (130-400); RBC Distribution Width 20.7 % (11.5-14.5); Red Blood Cell (RBC) Count 3.75 mill/uL (4.20-5.40); White Blood Cell (WBC) Count 11.7 10x3/uL (4.8-10.8)
[2023-10-02 13:28] LABS: Anion Gap 17 mmol/L (10-20); BUN (Urea Nitrogen) 44 mg/dL (9.8-20.1); Calc. Creatinine Clearance 41 mL/min (70-130); Calcium 9.3 mg/dL (7.8-10.44); Carbon Dioxide 27 mmol/L (23-31); Chloride 101 mmol/L (98-107); Estimated GFR 41; Glucose 200 mg/dL (83-110); Potassium 3.1 mmol/L (3.5-5.1); Sodium 142 mmol/L (136-145)
[2023-10-03] MEDS: Empagliflozin 10 MG TAB PO SCH (08:03)
[2023-10-03 10:03] LABS: #Basophils 0.1 thou/uL (0.0-0.2); #Lymphocytes 0.7 thou/uL (1.20-3.40); #Monocytes 0.6 thou/uL (0.11-0.59); #Neutrophils 7.1 thou/uL (1.40-6.50); %Basophils 0.6 % (0.0-1.0); %Eosinophils 0.1 % (0.0-10.0); %Lymphocytes 8.3 % (21.0-51.0); %Neutrophils 84.1 % (42.0-75.0); Hematocrit 29.1 % (36.0-47.0); Hemoglobin 8.4 g/dL (12.0-16.0); Mean Corpuscular HGB CONC 28.9 g/dL (32.0-36.0); Mean Corpuscular Hemoglobin 26.3 pg (27.0-31.0); Mean Platelet Volume 5.8 fL (7.4-10.4); Platelet Count 224 10x3/uL (130-400); Red Blood Cell (RBC) Count 3.19 mill/uL (4.20-5.40); White Blood Cell (WBC) Count 8.5 10x3/uL (4.8-10.8)
[2023-10-03 10:09] LABS: Anion Gap 15 mmol/L (10-20); BUN (Urea Nitrogen) 39 mg/dL (9.8-20.1); Calc. Creatinine Clearance 40 mL/min (70-130); Calcium 8.9 mg/dL (7.8-10.44); Carbon Dioxide 30 mmol/L (23-31); Chloride 99 mmol/L (98-107); Estimated GFR 39; Glucose 268 mg/dL (83-110); Potassium 3.6 mmol/L (3.5-5.1); Sodium 140 mmol/L (136-145)
[2023-10-04] MEDS: Simethicone Chewable 80 MG TAB PO SCH (18:45)
[2023-10-05] MEDS: Simethicone Chewable 80 MG TAB PO PRN (06:00)
[2023-10-05 09:41] LABS: #Basophils 0.1 thou/uL (0.0-0.2); #Lymphocytes 0.6 thou/uL (1.20-3.40); #Monocytes 0.5 thou/uL (0.11-0.59); #Neutrophils 4.9 thou/uL (1.40-6.50); %Basophils 1.2 % (0.0-1.0); %Eosinophils 0.6 % (0.0-10.0); %Lymphocytes 10.3 % (21.0-51.0); %Monocytes 7.4 % (0.0-10.0); %Neutrophils 80.5 % (42.0-75.0); Mean Corpuscular Hemoglobin 26.7 pg (27.0-31.0); Mean Corpuscular Volume 92.2 fl (78.0-98.0); Mean Platelet Volume 6.5 fL (7.4-10.4); Platelet Count 208 10x3/uL (130-400); RBC Distribution Width 21.5 % (11.5-14.5); Red Blood Cell (RBC) Count 3.36 mill/uL (4.20-5.40); White Blood Cell (WBC) Count 6.1 10x3/uL (4.8-10.8)
[2023-10-05 12:35] LABS: Anion Gap 15 mmol/L (10-20); BUN (Urea Nitrogen) 38 mg/dL (9.8-20.1); Calc. Creatinine Clearance 48 mL/min (70-130); Carbon Dioxide 29 mmol/L (23-31); Chloride 99 mmol/L (98-107); Estimated GFR 47; Glucose 153 mg/dL (83-110); Potassium 3.6 mmol/L (3.5-5.1); Sodium 139 mmol/L (136-145)
[2023-10-06 06:42] LABS: Anion Gap 16 mmol/L (10-20); BUN (Urea Nitrogen) 41 mg/dL (9.8-20.1); Calc. Creatinine Clearance 48 mL/min (70-130); Calcium 8.8 mg/dL (7.8-10.44); Carbon Dioxide 28 mmol/L (23-31); Chloride 99 mmol/L (98-107); Estimated GFR 46; Glucose 122 mg/dL (83-110); Sodium 139 mmol/L (136-145)
[2023-10-07] MEDS ORDERED: Diclofenac 1% 100 GM Topical GEL TP PRN (09:21)
[2023-10-07] MEDS: Furosemide 40 MG (4 mL) VIAL SLOW IVP SCH (09:43)
[2023-10-07 10:37] LABS: ALT (SGPT) 29 U/L (8-55); AST (SGOT) 27 U/L (5-34); Albumin 3.3 g/dL (3.4-4.8); Alkaline Phosphatase 78 U/L (40-110); Anion Gap 16 mmol/L (10-20); BUN (Urea Nitrogen) 41 mg/dL (9.8-20.1); Bilirubin, Total 0.7 mg/dL (0.2-1.2); Calc. Creatinine Clearance 46 mL/min (70-130); Calcium 8.9 mg/dL (7.8-10.44); Carbon Dioxide 26 mmol/L (23-31); Chloride 98 mmol/L (98-107); Estimated GFR 44; Globulin 3.1 g/dL (2.4-3.5); Glucose 245 mg/dL (83-110); Magnesium 2.5 mg/dL (1.6-2.6); Potassium 3.8 mmol/L (3.5-5.1); Protein, Total 6.4 g/dL (5.8-8.1); Sodium 136 mmol/L (136-145)
[2023-10-07 10:56] LABS: Troponin I 0.013 ng/mL (< 0.028)
[2023-10-07 11:04] LABS: #Basophils 0.1 thou/uL (0.0-0.2); #Lymphocytes 0.7 thou/uL (1.20-3.40); #Monocytes 0.5 thou/uL (0.11-0.59); #Neutrophils 4.8 thou/uL (1.40-6.50); %Basophils 1.3 % (0.0-1.0); %Eosinophils 0.4 % (0.0-10.0); %Lymphocytes 11.1 % (21.0-51.0); %Monocytes 8.1 % (0.0-10.0); %Neutrophils 79.1 % (42.0-75.0); Hematocrit 30.7 % (36.0-47.0); Hemoglobin 8.9 g/dL (12.0-16.0); Mean Corpuscular HGB CONC 28.9 g/dL (32.0-36.0); Mean Corpuscular Hemoglobin 26.3 pg (27.0-31.0); Mean Corpuscular Volume 90.8 fl (78.0-98.0); Mean Platelet Volume 6.1 fL (7.4-10.4); Platelet Count 277 10x3/uL (130-400); RBC Distribution Width 20.6 % (11.5-14.5); Red Blood Cell (RBC) Count 3.38 mill/uL (4.20-5.40)
[2023-10-07] MEDS: Potassium Chloride 20 MEQ TAB PO SCH (14:12)
[2023-10-08 05:25] LABS: #Eosinphils 0.1 thou/uL (0.0-0.7); #Lymphocytes 1.1 thou/uL (1.20-3.40); #Monocytes 0.6 thou/uL (0.11-0.59); #Neutrophils 4.3 thou/uL (1.40-6.50); %Basophils 0.7 % (0.0-1.0); %Lymphocytes 18.3 % (21.0-51.0); %Monocytes 9.8 % (0.0-10.0); %Neutrophils 70.2 % (42.0-75.0); Hemoglobin 9.5 g/dL (12.0-16.0); Mean Corpuscular HGB CONC 29.7 g/dL (32.0-36.0); Mean Corpuscular Hemoglobin 26.7 pg (27.0-31.0); Mean Corpuscular Volume 90.1 fl (78.0-98.0); Mean Platelet Volume 5.9 fL (7.4-10.4); Platelet Count 272 10x3/uL (130-400); RBC Distribution Width 19.7 % (11.5-14.5); Red Blood Cell (RBC) Count 3.55 mill/uL (4.20-5.40); White Blood Cell (WBC) Count 6.1 10x3/uL (4.8-10.8)
[2023-10-08 05:40] LABS: Anion Gap 16 mmol/L (10-20); BUN (Urea Nitrogen) 43 mg/dL (9.8-20.1); Calc. Creatinine Clearance 46 mL/min (70-130); Calcium 8.9 mg/dL (7.8-10.44); Carbon Dioxide 28 mmol/L (23-31); Chloride 100 mmol/L (98-107); Estimated GFR 43; Glucose 134 mg/dL (83-110); Sodium 140 mmol/L (136-145)
[2023-10-08] MEDS: Furosemide 40 MG (4 mL) VIAL SLOW IVP SCH (09:12)
[2023-10-10 06:23] LABS: Anion Gap 15 mmol/L (10-20); BUN (Urea Nitrogen) 36 mg/dL (9.8-20.1); Calc. Creatinine Clearance 44 mL/min (70-130); Carbon Dioxide 28 mmol/L (23-31); Chloride 100 mmol/L (98-107); Estimated GFR 44; Glucose 135 mg/dL (83-110); Potassium 3.8 mmol/L (3.5-5.1); Sodium 139 mmol/L (136-145)
[2023-10-11] MEDS: Furosemide 20 MG (2 mL) VIAL SLOW IVP SCH ×2 (10:12→15:45)
[2023-10-12 06:18] LABS: #Basophils 0.1 thou/uL (0.0-0.2); #Eosinphils 0.1 thou/uL (0.0-0.7); #Lymphocytes 1.8 thou/uL (1.20-3.40); #Monocytes 0.6 thou/uL (0.11-0.59); #Neutrophils 4.2 thou/uL (1.40-6.50); %Basophils 1.2 % (0.0-1.0); %Lymphocytes 26.7 % (21.0-51.0); %Monocytes 8.4 % (0.0-10.0); %Neutrophils 62.8 % (42.0-75.0); Hematocrit 34.1 % (36.0-47.0); Hemoglobin 9.7 g/dL (12.0-16.0); Mean Corpuscular HGB CONC 28.6 g/dL (32.0-36.0); Mean Corpuscular Hemoglobin 26.2 pg (27.0-31.0); Mean Corpuscular Volume 91.7 fl (78.0-98.0); Platelet Count 293 10x3/uL (130-400); RBC Distribution Width 20.6 % (11.5-14.5); Red Blood Cell (RBC) Count 3.72 mill/uL (4.20-5.40); White Blood Cell (WBC) Count 6.7 10x3/uL (4.8-10.8)
[2023-10-12 06:24] LABS: Anion Gap 16 mmol/L (10-20); BUN (Urea Nitrogen) 42 mg/dL (9.8-20.1); Calc. Creatinine Clearance 36 mL/min (70-130); Calcium 8.8 mg/dL (7.8-10.44); Carbon Dioxide 28 mmol/L (23-31); Chloride 100 mmol/L (98-107); Estimated GFR 35; Glucose 139 mg/dL (83-110); Potassium 3.6 mmol/L (3.5-5.1); Sodium 140 mmol/L (136-145)
[2023-10-12] MEDS: Furosemide 20 MG TAB PO SCH (08:02)
[2023-10-12 10:58] VITALS: BMI 33.3
[2023-10-13] MEDS ORDERED: Diclofenac 1% 100 GM Topical GEL TP PRN (09:49)
[2023-10-14 05:34] LABS: Anion Gap 16 mmol/L (10-20); BUN (Urea Nitrogen) 38 mg/dL (9.8-20.1); Calc. Creatinine Clearance 41 mL/min (70-130); Calcium 8.8 mg/dL (7.8-10.44); Carbon Dioxide 23 mmol/L (23-31); Chloride 105 mmol/L (98-107); Estimated GFR 37; Glucose 112 mg/dL (83-110); Potassium 4.3 mmol/L (3.5-5.1); Sodium 140 mmol/L (136-145)
[2023-10-15 06:15] VITALS: BMI 33.3
[2023-10-16 07:16] VITALS: BP 107/64; TEMP 97.6
== END 2023-10-16 11:10 | disposition home or self-care (01) | DRG 947 ==
LOC: NAV ACUTE 20:05
PROVIDERS: ADMIT Family Medicine; ATTEND Family Medicine
PROC: 30233J1 Transfusion of Nonautologous Serum Albumin into Peripheral Vein, Percutaneous Approach (ICD-10-PCS; principal; 2023-09-27)
DX: R53.81 Other malaise (principal); I50.33 Acute on chronic diastolic (congestive) heart failure; J96.11 Chronic respiratory failure with hypoxia; I13.0 Hypertensive heart and chronic kidney disease with heart failure and stage 1 through stage 4 chronic kidney disease, or unspecified chronic kidney disease; I48.91 Unspecified atrial fibrillation; N18.32 Chronic kidney disease, stage 3b; E11.22 Type 2 diabetes mellitus with diabetic chronic kidney disease; I25.10 Atherosclerotic heart disease of native coronary artery without angina pectoris; E78.5 Hyperlipidemia, unspecified; E03.9 Hypothyroidism, unspecified; Z79.899 Other long term (current) drug therapy; Z79.82 Long term (current) use of aspirin; E87.6 Hypokalemia; G25.81 Restless legs syndrome; D63.1 Anemia in chronic kidney disease
CPT/HCPCS: 36415; 36416; 36430; 71045; 80048; 80053; 83735; 83880; 84145; 84484; 85025; 85027; 86850; 86900; 86901; J1650; J1815; J1940; P9016; Q0162